=== PATIENT | female | born 1975 | race Caucasian/White ===

== ENCOUNTER → 2021-04-16 | Outpatient (CLI) | payer OTHER, SELFPAY ==
[2021-04-16 15:09] LABS: Erythrocyte Sedimentation Rate 29 mm/hr (0-30)
[2021-04-16 15:11] LABS: Absolute Lymphocyte Count 2.61 X10^3/uL (0.83-4.51); Absolute Neutrophil Count 3.6 X10^3/uL (2.0-7.7); Basophil# 0.04 X10^3/uL; Basophil% 0.6 % (0-1); Eosinophil# 0.17 X10^3/uL; Eosinophils% 2.5 % (0-5); Hematocrit 37.8 % (37-47); Hemoglobin 11.5 g/dL (12.0-15.0); Lymphocyte # 2.61 X10^3/ul (0.83-4.51); Mean Corp Hgb Conc 30.4 g/dL (32-36); Mean Corpuscular Hgb 24.6 pg (27.0-32.0); Mean Corpuscular Volume 80.8 fL (81-99); Mean Platelet Vol. 10.8 fl (6.2-12.0); Monocyte# 0.43 X10^3/uL; Monocyte% 6.3 % (0-10); NRBC Flagged by Analyzer 0 % (0-5); Neutrophil % 52.5 % (47-70); Platelet Count 438 K/mm3 (150-450); RBC Distribution Width CV 14.6 % (11.6-14.6); RBC Distribution Width SD 42.9 fl (35.1-43.9); Red Blood Count 4.68 M/mm3 (4.2-5.4); White Blood Count 6.9 K/mm3 (4.4-11.0)
[2021-04-16 15:24] LABS: Rubella IgG Reactive (Nonreactive); Vitamin D,25 Hydroxy 52.7 ng/mL
[2021-04-16 15:28] LABS: ALB/GLOB Ratio 0.8 RATIO (0.9-2.4); AST(SGOT) 22 U/L (15-37); Alanine Aminotransfer ALT/SGPT 27 U/L (13-56); Albumin, Serum 3.3 g/dL (3.2-5.0); Alkaline Phosphatase 99 U/L (45-117); Anion Gap 7 (5-15); BUN 8 mg/dL (7-18); BUN/Creat Ratio 13.2 RATIO (10-20); Calcium,Total 8.7 mg/dL (8.5-10.1); Chloride 106 mmol/L (98-107); Cholesterol 205 mg/dL (200); Creatinine, Serum 0.61 mg/dL (0.55-1.02); EST Glomerular Filtration Rate 112 mL/min (>60); Est Glom Filt Rate - Afr Amer 136 mL/min (>60); Globulin 4.1 g/dL (2.2-4.2); Glucose 91 mg/dL (74-106); High Density Lipoprotein 38 mg/dL; Iron 31 ug/dL (50-170); Iron Binding Capacity,Total 475 ug/dL (250-450); Potassium 3.8 mmol/L (3.5-5.1); Protein, Total 7.4 g/dL (6.4-8.2); Sodium Level 139 mmol/L (136-145); Thyroid Stim Hormone (TSH) 1.43 uIU/mL (0.358-3.74); Triglycerides 89 mg/dL; Very Low Density Lipoprotein 18 mg/dL (5-40)
[2021-04-16 15:29] LABS: PERCENT IRON SATURATION 6.5 % (15.0-55.0); Rheumatoid Factor < 10.0 IU/mL (<15)
[2021-04-18 13:45] LABS: ANTINUCLEAR ANTIBODIES DIRECT Negative (Negative)
[2021-04-18 16:21] LABS: Mumps Antibody,IgG 40.8 AU/mL (Immune >10.9); Rubeola IgG Ab 47.4 AU/mL (Immune >16.4)
== END | disposition short-term general hospital (02) ==
LOC: BIMLAB 11:57
PROVIDERS: PCP Internal Medicine; Referring Provider Internal Medicine; Visit Provider Internal Medicine
DX: Z02.1 Encounter for pre-employment examination (principal); M25.50 Pain in unspecified joint; F32.A Depression, unspecified; E78.1 Pure hyperglyceridemia; E61.1 Iron deficiency
CPT/HCPCS: 36415; 80053; 80061; 82306; 83540; 83550; 84443; 85025; 85652; 86038; 86225; 86235; 86431; 86735; 86762; 86765

== ENCOUNTER 2021-09-13 07:30 | Outpatient (RCR) | payer OTHER, SELFPAY ==
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
--- NOTE | 2021-07-11 10:01 | HP.PTREVAL_ITS ---
Dr. Dhara Johns MD, It has been my pleasure to treat YADIRA QUEZADA over the last 9 visits for Neck and Back Pain. Please see the progress note below for an update on the physical therapy plan of care! Subjective: She feels that the water therapy is great- she feels that she is getting better. She is also thinking that maybe a membership would be helpful. She feels that she is standing better and her posture is better. Worst: 7/10 Objective/Function: Posture: FH, RS- can correct with verbal cues but does not maintain. Gait: no deviation noted- good arm swing and trunk rotation- fair posture. SLS: 15 sec then LOB. ROM: WFL in all planes of the cervical, lumbar, UE and LE but reports pain in the rotation left and sb left. Strength: Cervical: 4+/5 isometrics, Scap: fair, Shoulder: 4+/5 throughout, Elbow: 5/5, Wrist: 5/5, Firewall Engineer: equal, Core: fair minus, Hip: 4+/5 throughout, Knee: 5/5, Ankle: 5/5. Palpation: tender along cervical paraspinals, upper trap, medial border of the scapula, bicipital groove and deltoid. Lumbar paraspinals into the gluts and along the ITband to the knee. Sensation: WNL. Flex: HS: moderate, Gastroc: moderate Plan Plan: 07/11/21: Continue with POC. * f/u with supervising PT next appt. Would recommend continued AT at this time, d/t progress made, however, room for greater improvement. Has been given I pool page & hours for this facility as she is interested in becoming a member. Still very limited by pain and therefore body weight. *f/u with new HEP tasks. *Add balance, step ups and downs next. Aquatic PT- focus on posture- scapular s/s and core s/s Balance/Gait/Functional tests - Balance/Special Test Scores Quick DASH Score: 40.0000 Goals Goal 1:: Patient will be I with HEP and progression Goal Time Frame: 4-6 Weeks Goal Progress: Progressing Goal 2:: Patient will maintain proper posture t/o tx session to demo increased core s/s Goal Time Frame: 4-6 Weeks Goal Progress: Progressing Goal 3:: Patient will report no more than 2/10 pain for 1 week Goal Time Frame: 4-6 Weeks Goal Progress: Progressing Goal 4:: Patient will report 75% better subjectively. Goal Time Frame: 4-6 Weeks Goal Progress: Progressing Anticipated Interventions Patient/Client Instruction: Educate patient on: Benefits of Fitness Program Therapeutic Exercise to Include: Strength training, Endurance training, Balance training, Coordination, Agility training, Body mechanics, Postural training, Fl exibilty training, Gait and locomotor training, Neuromotor development, In an aquatic setting, Dynamic Lumbar Stabilization, Scapular Strength/Stabilization For the Purpose of:: To improve muscle performance and motor function Please do not hesitate to contact me at [phone] by phone or if you have questions or concerns regarding this new plan of care! Sincerely, CATALINA ChungT
--- NOTE | 2021-09-13 07:44 | HP.PTDCSUM ---
It has been my pleasure to treat YADIRA QUEZADA referred by Dr. Dhara Johns MD, with the diagnosis of Neck and Back Pain for a total of 14 visit(s). Discharge Date: Please see the following information for a summary of their discharge status. Subjective: Patient reports that she is doing really well. She is ready to be I with home exercise program. She is more like a 2-3/10. She is never really painfree but she does have days where its better. She did have a tour of the facility- and she is planning in joining. She has had a lot of sickness and things in her family. RLE Pain Intensity (Out of 10): 0 LLE Pain Intensity (Out of 10): 0 Lumbar Spine Pain Intensity (Out of 10): 2 Cerv. Spine Pain Intensity (Out of 10): 2 RUE Pain Intensity (Out of 10): 2 LUE Pain Intensity (Out of 10): 2 RAMON Pain Intensity (Out of 10): 2 % Improvement: 98 Objective/Function: Posture: fair throughout. Gait: no deviation noted- good arm swing and trunk rotation- fair posture. SLS: 30 no LOB. ROM: WFL in all planes of the cervical, lumbar, UE and LE without pain. Strength: Cervical: 4+/5 isometrics, Scap: fair, Shoulder: 5/5 throughout, Elbow: 5/5, Wrist: 5/5, Clerical Office Worker: equal, Core: fair, Hip: 5/5 throughout, Knee: 5/5, Ankle: 5/5. Sensation: WNL. Flex: HS: moderate, Gastroc: moderate Goal 1:: Patient will be I with HEP and progression Goal Progress: Goal Met Goal 2:: Patient will maintain proper posture t/o tx session to demo increased core s/s Goal Progress: Goal Met Goal 3:: Patient will report no more than 2/10 pain for 1 week Goal Progress: Goal Met Goal 4:: Patient will report 75% better subjectively. Goal Progress: Goal Met Plan: 09/13/21: Discharge to I home exercise program. *Add rest of balance tasks next. *Progressing to I pool program with [employer] membership. Has been given I pool page & hours for this facility as she is interested in becoming a member. Aquatic PT- focus on posture- scapular s/s and core s/s If there are questions or concerns regarding this patient's physical therapy, please feel free to call me at [phone]. Thank you for the referral of this patient. Sincerely, Jennifer Joe, DPT Balance/Gait/Functional tests - Balance/Special Test Scores Lower Extremity Functional Score: 71 Quick DASH Score: 40.0000
== END 2021-09-13 19:00 | disposition home or self-care (01) ==
LOC: PT 07:30
PROVIDERS: PCP Internal Medicine; Referring Provider Internal Medicine; Visit Provider Internal Medicine
DX: M25.511 Pain in right shoulder (principal); M25.512 Pain in left shoulder; M25.50 Pain in unspecified joint; M54.2 Cervicalgia; M54.30 Sciatica, unspecified side; W00.9XXA Unspecified fall due to ice and snow, initial encounter
CPT/HCPCS: 97113; 97162; 97164

== ENCOUNTER → 2021-10-25 | Outpatient (CLI) | payer OTHER, SELFPAY | END | disposition home or self-care (01) | LOC: LABSPEC 15:42 | PROVIDERS: PCP Internal Medicine; Referring Provider Physician Assistant; Visit Provider Physician Assistant | DX: R05.9 Cough, unspecified (principal); Z20.822 Contact with and (suspected) exposure to COVID-19 | CPT/HCPCS: 87635; U0003; U0005 ==

== ENCOUNTER → 2022-05-21 | Outpatient (CLI) | payer OTHER, SELFPAY ==
[2022-05-21 12:31] LABS: Absolute Lymphocyte Count 2.94 X10^3/uL (0.83-4.51); Absolute Neutrophil Count 2.7 X10^3/uL (2.0-7.7); Basophil# 0.06 X10^3/uL; Basophil% 0.9 % (0-1); Eosinophil# 0.12 X10^3/uL; Eosinophils% 1.9 % (0-5); Hematocrit 35.5 % (37-47); Hemoglobin 9.6 g/dL (12.0-15.0); Lymphocyte # 2.94 X10^3/ul (0.83-4.51); Lymphocyte % 46.3 % (19-41); Mean Corpuscular Volume 77.5 fL (81-99); Mean Platelet Vol. 10.6 fl (6.2-12.0); Monocyte# 0.55 X10^3/uL; Monocyte% 8.7 % (0-10); NRBC Flagged by Analyzer 0.3 % (0-5); Neutrophil # 2.67 X10^3/uL (2.7-7.7); Platelet Count 570 K/mm3 (150-450); RBC Distribution Width CV 19.1 % (11.6-14.6); Red Blood Count 4.58 M/mm3 (4.2-5.4); White Blood Count 6.4 K/mm3 (4.4-11.0)
[2022-05-21 13:21] LABS: ALB/GLOB Ratio 0.9 RATIO (0.9-2.4); AST(SGOT) 18 U/L (15-37); Alanine Aminotransfer ALT/SGPT 23 U/L (13-56); Albumin, Serum 3.4 g/dL (3.2-5.0); Alkaline Phosphatase 93 U/L (45-117); Anion Gap 7 (5-15); BUN 8 mg/dL (7-18); Calcium,Total 8.7 mg/dL (8.5-10.1); Chloride 111 mmol/L (98-107); Cholesterol 195 mg/dL (200); Creatinine, Serum 0.66 mg/dL (0.55-1.02); EST Glomerular Filtration Rate 100 mL/min (>60); Est Glom Filt Rate - Afr Amer 121 mL/min (>60); Free T3 2.3 pg/mL (2.18-3.98); Globulin 3.8 g/dL (2.2-4.2); Glucose 107 mg/dL (74-106); High Density Lipoprotein 41 mg/dL; Iron 16 ug/dL (50-170); Iron Binding Capacity,Total 500 ug/dL (250-450); PERCENT IRON SATURATION 3.2 % (15.0-55.0); Potassium 4.1 mmol/L (3.5-5.1); Protein, Total 7.2 g/dL (6.4-8.2); Sodium Level 142 mmol/L (136-145); Thyroid Stim Hormone (TSH) 1.62 uIU/mL (0.358-3.74); Triglycerides 107 mg/dL; Very Low Density Lipoprotein 21 mg/dL (5-40)
== END | disposition home or self-care (01) ==
PROVIDERS: PCP Internal Medicine; Referring Provider Internal Medicine; Visit Provider Internal Medicine
DX: D50.9 Iron deficiency anemia, unspecified (principal); N92.0 Excessive and frequent menstruation with regular cycle; F32.A Depression, unspecified; Z87.42 Personal history of other diseases of the female genital tract; E55.9 Vitamin D deficiency, unspecified; Z13.220 Encounter for screening for lipoid disorders
CPT/HCPCS: 36415; 80053; 80061; 82306; 83540; 83550; 84439; 84443; 84481; 85025

== ENCOUNTER → 2022-11-05 | Outpatient (CLI) | payer OTHER, SELFPAY ==
[2022-11-11 15:07] LABS: HPV APTIMA, High Risk Negative (Negative)
== END | disposition home or self-care (01) ==
PROVIDERS: PCP Internal Medicine; Referring Provider Nurse Practitioner Women's Health; Visit Provider Nurse Practitioner Women's Health
DX: Z12.4 Encounter for screening for malignant neoplasm of cervix (principal)
CPT/HCPCS: 87624; 88175; G0145

== ENCOUNTER → 2022-11-11 | Outpatient (CLI) | payer OTHER, SELFPAY ==
--- NOTE | 2022-11-11 14:43 | US_ITS ---
STUDY: ULTRASOUND OF THE FEMALE PELVIS - COMPLETE REASON FOR EXAM: Female, 47 years old. Menorrhagia LMP: October 27, 2022. TECHNIQUE: Transabdominal and Transvaginal TECHNICAL QUALITY: Adequate. COMPARISON: None. FINDINGS: The uterus is retroverted and is in a midline position. The uterus measures 9.6 cm x 6.5 cm x 5.4 cm. Normal uterine cervix. The endometrium measures 4 mm in thickness, and is hyperechoic. There is no demonstrated endometrial mass. There is no demonstrated myometrial mass. I.U.D. - The patient does not have an I.U.D. The right ovary is visualized. The right ovary measures 3 cm x 1.7 cm x 1.5 cm. There is no right ovarian cyst or ovarian mass. There is no visualized right adnexal mass or complex lesion. There is normal arterial and normal venous vascularity. The left ovary is visualized. The left ovary measures 5.4 cm x 4.9 cm x 4.9 cm. There is a 5.9 cm x 4.1 cm x 4.8 cm left ovarian cyst. There is no visualized left adnexal mass or complex lesion. There is normal arterial and normal venous vascularity. There is no fluid in the cul-de-sac. The pre void volume of the bladder was 217 ml. The distal tip of an ureteral stent is visualized. US/Pelvic (Non ) IMPRESSION: 5.9 cm x 4.1 cm x 4.8 cm cyst in the left ovary. Electronically Signed: Jamal Frederick MD at 13:09 EDT ,
[2022-11-11 14:48] LABS: Absolute Lymphocyte Count 2.58 X10^3/uL (0.83-4.51); Absolute Neutrophil Count 3.6 X10^3/uL (2.0-7.7); Basophil# 0.05 X10^3/uL; Basophil% 0.7 % (0-1); Eosinophil# 0.21 X10^3/uL; Hematocrit 39.2 % (37-47); Hemoglobin 11.7 g/dL (12.0-15.0); Lymphocyte # 2.58 X10^3/ul (0.83-4.51); Lymphocyte % 36.5 % (19-41); Mean Corp Hgb Conc 29.8 g/dL (32-36); Mean Corpuscular Hgb 25.3 pg (27.0-32.0); Mean Corpuscular Volume 84.8 fL (81-99); Mean Platelet Vol. 10.5 fl (6.2-12.0); Monocyte# 0.61 X10^3/uL; Monocyte% 8.6 % (0-10); NRBC Flagged by Analyzer 0.6 % (0-5); Neutrophil # 3.59 X10^3/uL (2.7-7.7); Neutrophil % 50.9 % (47-70); Platelet Count 626 K/mm3 (150-450); RBC Distribution Width CV 14.6 % (11.6-14.6); Red Blood Count 4.62 M/mm3 (4.2-5.4); White Blood Count 7.1 K/mm3 (4.4-11.0)
[2022-11-11 15:15] LABS: ALB/GLOB Ratio 0.7 RATIO (0.9-2.4); AST(SGOT) 31 U/L (15-37); Alanine Aminotransfer ALT/SGPT 22 U/L (13-56); Albumin, Serum 3.2 g/dL (3.2-5.0); Alkaline Phosphatase 100 U/L (45-117); Anion Gap 5 (5-15); BUN 8 mg/dL (7-18); BUN/Creat Ratio 12.1 RATIO (10-20); Calcium,Total 9.3 mg/dL (8.5-10.1); Chloride 104 mmol/L (98-107); Creatinine, Serum 0.66 mg/dL (0.55-1.02); EST Glomerular Filtration Rate 101 mL/min (>60); Est Glom Filt Rate - Afr Amer 122 mL/min (>60); Globulin 4.4 g/dL (2.2-4.2); Glucose 105 mg/dL (74-106); Iron 32 ug/dL (50-170); Iron Binding Capacity,Total 545 ug/dL (250-450); PERCENT IRON SATURATION 5.9 % (15.0-55.0); Potassium 4.2 mmol/L (3.5-5.1); Protein, Total 7.6 g/dL (6.4-8.2); Sodium Level 137 mmol/L (136-145)
== END | disposition home or self-care (01) ==
LOC: US 14:37
PROVIDERS: PCP Internal Medicine; Referring Provider Nurse Practitioner Women's Health; Visit Provider Nurse Practitioner Women's Health
DX: N92.1 Excessive and frequent menstruation with irregular cycle (principal); D50.9 Iron deficiency anemia, unspecified; Z87.42 Personal history of other diseases of the female genital tract; F32.A Depression, unspecified
CPT/HCPCS: 36415; 76830; 76856; 80053; 83540; 83550; 85025

== ENCOUNTER → 2022-11-13 | Outpatient (CLI) | payer OTHER, SELFPAY ==
--- NOTE | 2022-11-13 08:41 | BI_ITS ---
MAMMOGRAPHY - BILATERAL SCREENING REASON FOR EXAM: Female, 47 years old. Routine annual screening examination. PERTINENT HISTORY: Non-contributory. TECHNIQUE: Digital bilateral breast victoria (3D mammographic acquisition) in the CC and MLO projections. 2-D mediolateral oblique (MLO) and craniocaudad (CC) views of both breasts were obtained. CAD: Full Field Digital Mammography with Computer Added Detection was performed. COMPARISON: No comparison mammograms available at this time. If any prior films become available, an addendum to this report can be generated. FINDINGS: Breast Composition: The breasts are heterogeneously dense, which may obscure small masses. There are no dominant masses or suspicious calcifications. Small benign-appearing bilateral axillary lymph nodes. No other significant abnormalities are identified. BI/SCRN MAMM (CAD)W/VICTORIA BILAT IMPRESSION: Negative screening mammogram. Yearly followup mammogram recommended. (A) ASSESSMENT CATEGORY: BIR ADS Category 2: Benign. A letter regarding these results will be sent to the patient by the facility within 30 days. Approximately 10% of breast cancers are not detected by mammography. A normal mammogram should not delay biopsy of a clinically suspicious abnormality. [id number] Electronically Signed: Jamal Frederick MD at 14:25 EDT ,
== END | disposition home or self-care (01) ==
PROVIDERS: PCP Internal Medicine; Referring Provider Nurse Practitioner Women's Health; Visit Provider Nurse Practitioner Women's Health
DX: Z12.31 Encounter for screening mammogram for malignant neoplasm of breast (principal)
CPT/HCPCS: 77063; 77067

== ENCOUNTER → 2022-11-28 | Outpatient (CLI) | payer OTHER, SELFPAY ==
--- NOTE | 2022-11-28 11:06 | CT_ITS ---
CT/Extremity Lower without Contra IMPRESSION: Medial and posterior malleolar fractures as described. Soft tissue swelling. Electronically Signed: Sam Deutsch MD at 11:39 EDT ,
== END | disposition home or self-care (01) ==
LOC: CT 11:05
PROVIDERS: PCP Internal Medicine; Referring Provider Orthopaedic Surgery Sports Medicine; Visit Provider Orthopaedic Surgery Sports Medicine
DX: S82.51XA Displaced fracture of medial malleolus of right tibia, initial encounter for closed fracture (principal); M25.571 Pain in right ankle and joints of right foot; X58.XXXA Exposure to other specified factors, initial encounter
CPT/HCPCS: 73700

== ENCOUNTER 2022-12-04 11:38 | Outpatient (CLI) | payer OTHER, SELFPAY ==
--- NOTE | 2022-12-04 10:45 | EMB_PTH ---
PATIENT: YADIRA QUEZADA LOC: [facility] U#:[id number] AGE/SX: 47/F ROOM: RE12/04/[address]: Dr. Brianda Varma DO : 1975 BED: DIS: 12/04/2022 SPEC #: [id number] RECD: 12/04/22 11:36 STATUS: ALAN NICANOR #: [id number] HARDEEP: 12/04/22 10:[address]: Brianda Varma DEPT: SURGICAL PATHOLOGY RECD BY: Maegan Bonds ENTERED: 12/05/22 10:27 SP TYPE: ENDOM BX/C EDHR DR: Dr. Dhara Johns MD Tissues: Endometrium, NOS Procedures: Surgery Specimen Level IV HEADER OPERATION: Endometrial biopsy PRE-OP DIAGNOSIS: Abnormal uterine bleeding TISSUE SUBMITTED: Endometrial lining MICROSCOPIC DIAGNOSIS Endometrial biopsy: Proliferative endometrium. SJ:weston 12/09/2022 MICROSCOPIC DESCRIPTION Slides are reviewed. GROSS DESCRIPTION Received in fixative is one container labeled with the patient's name and designated endometrial biopsy. The specimen consists of multiple irregular fragments of west-pink soft tissue that in aggregate measure 1.0 x 1.0 x 0.1 cm. The entire specimen is submitted in one cassette. / SJ:rg 12/05/2022 TC:4 CPT: 00137
== END 2022-12-04 23:59 | disposition home or self-care (01) ==
PROVIDERS: PCP Internal Medicine; Referring Provider Obstetrics & Gynecology; Visit Provider Obstetrics & Gynecology
DX: N93.9 Abnormal uterine and vaginal bleeding, unspecified (principal)
CPT/HCPCS: 88305

== ENCOUNTER → 2022-12-25 | Outpatient (CLI) | payer OTHER, SELFPAY ==
--- NOTE | 2022-12-25 12:59 | US_ITS ---
EXAM: US PELVIS TRANSABDOMINAL AND TRANSVAGINAL, COMPLETE CLINICAL INDICATION: ovarian cyst- AUB TECHNIQUE: Transabdominal and transvaginal pelvic ultrasound was performed with grayscale and color Doppler imaging. Transvaginal imaging was used for better evaluation of the endometrium and adnexa. COMPARISON: No relevant prior studies available. FINDINGS: UTERUS/CERVIX: Uterus measures 9.2 x 5.7 x 6.2 cm. The endometrium measures 1 cm. There is a 1.0 x 0.4 x 0.8 cm echogenic focus within the endometrium. Anteverted. There is no uterine mass. RIGHT OVARY: The right ovary measures 2.2 x 3.2 x 2.2 cm. Blood flow is present in the right ovary. LEFT OVARY: The left ovary measures 3.8 x 2.1 x 2.6 cm. There is a 1.6 x 1.4 x 1.3 cm hypoechoic area in the left ovary compatible with a cyst or dominant follicle. Blood flow is present in the left ovary. FREE FLUID: None. BLADDER: Unremarkable as visualized. Wall is normal thickness for degree of distention. US/Pelvic (Non ) IMPRESSION: Echogenic focus within the endometrium possibly representing a polyp. No other abnormalities are identified. Electronically Signed: Anthony Cruz MD at 20:08 EDT ,
== END | disposition home or self-care (01) ==
LOC: OPUS 12:54
PROVIDERS: PCP Internal Medicine; Referring Provider Nurse Practitioner Women's Health; Visit Provider Nurse Practitioner Women's Health
DX: N92.1 Excessive and frequent menstruation with irregular cycle (principal); N83.202 Unspecified ovarian cyst, left side
CPT/HCPCS: 76830; 76856

== ENCOUNTER 2023-01-21 10:40 | Day surgery (SDC) | payer OTHER, SELFPAY ==
[2023-01-21] VITALS (8 sets, daily range): BP systolic 120–152; BP diastolic 78–105; PULSE 62–88; RESP 16–18; TEMP 35.9–36.5; O2SAT 96–100; BMI 31.4
--- NOTE | 2023-01-21 | EMB_PTH ---
PATIENT: YADIRA QUEZADA [place] [facility] [id number] AGE/SX: 47/F ROOM: RE01/21/[address]: Dr. Brianda Varma DO : 1975 BED: DIS: 01/21/2023 SPEC #: [id number] RECD: 01/21/23 15:14 STATUS: ALAN ODELLAlessandra #: [id number] HARDEEP: 01/21/23 00:[address]: Brianda Varma DEPT: SURGICAL PATHOLOGY RECD BY: Valentin Gallo ENTERED: 01/22/23 09:51 SP TYPE: ENDOM BX/C HUONG DR: Dr. Dhara Johns MD Tissues: Endometrium, NOS Procedures: Surgery Specimen Level IV HEADER OPERATION: Hysteroscopy, dilation and curettage PRE-OP DIAGNOSIS: Endometrial polyp, anemia, menorrhagia TISSUE SUBMITTED: Endometrial curettings MICROSCOPIC DIAGNOSIS Endometrium, curettings: Proliferative endometrium with minimal disorder and focal glandular and stromal breakdown. Chronic endometritis. AM:weston 01/23/2023 MICROSCOPIC DESCRIPTION Slides are reviewed. GROSS DESCRIPTION Received in fixative is one container labeled with the patient's name and designated endometrial curettings. The specimen consists of multiple irregular fragments of light to dark west soft tissue that in aggregate measure 5.0 x 3.0 x 0.2 cm. The specimen is totally submitted in two cassettes. / AM:weston 01/22/2023 TC:3 CPT: 19721
[2023-01-21 11:08] LABS: Internal QC Validated? YES +Cl - CLEAR BKGD; Pregnancy, Urine Negative Negative
[2023-01-21 11:17] LABS: Hematocrit 35.1 % (37-47); Mean Corp Hgb Conc 28.5 g/dL (32-36); Mean Corpuscular Hgb 21.6 pg (27.0-32.0); Mean Corpuscular Volume 75.6 fL (81-99); Platelet Count 633 K/mm3 (150-450); RBC Distribution Width CV 15.9 % (11.6-14.6); RBC Distribution Width SD 43.6 fl (35.1-43.9); Red Blood Count 4.64 M/mm3 (4.2-5.4); White Blood Count 8.9 K/mm3 (4.4-11.0)
[2023-01-21] MEDS: Lactated Ringers 1,000 ML 15 ML IV (11:23)
--- NOTE | 2023-01-21 11:28 | PCM.HP.BLA ---
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 Required: No Is patient in pain?: No Allergies bee venom protein (honey bee) Allergy (Severe, Verified 01/06/23 15:22) Anaphylaxismeloxicam [From Mobic] Allergy (Mild, Verified 01/06/23 15:22) unknown Medications [id number] 75 mg tablet (Immune Support Complex) tab PO 03/21/21 [History Confirmed 01/06/23] cholecalciferol (vitamin D3) 125 mcg (5,000 unit) capsule 125 mcg PO DAILY 03/21/21 [History Confirmed 01/06/23] cranberry extract 250 mg capsule 250 mg PO DAILY 03/21/21 [History Confirmed 01/06/23] fluticasone propionate 50 mcg/actuation nasal spray,suspension 1 spray intranasal DAILY 03/21/21 [History Confirmed 01/06/23] vitamin B complex (B Complex-Vitamin B12 tablet) 1 tab PO DAILY 03/21/21 [History Confirmed 01/06/23] docusate sodium 100 mg capsule (Colace) 100 mg PO BID #180 caps 03/28/21 [Rx Confirmed 01/06/23] duloxetine 30 mg capsule,delayed release (Cymbalta) 30 mg PO BID #180 caps 05/09/22 [Rx Confirmed 01/06/23] ferrous sulfate 325 mg (65 mg iron) tablet (Feosol) 325 mg PO DAILY 05/22/22 [History Confirmed 01/06/23] phenazopyridine 200 mg tablet 200 mg PO TID PRN pain #30 tabs 11/06/22 [Rx Confirmed 01/06/23] acetaminophen 325 mg capsule (Tylenol) 325 mg PO ONCE PRN 11/28/22 [History Confirmed 01/06/23] ibuprofen 200 mg capsule 200 mg PO Q6H PRN 11/28/22 [History Confirmed 01/06/23] Post menopausal: No Patient : No : No PFSH Medical History Bilateral bunions Fracture of medial malleolus, right, closed History of PCOS Kidney stone Right ankle pain Surgical History History of renal stent S/P appendectomy Family History Other CVA (cerebral vascular accident) Cancer Diabetes Heart disease Myocardial infarction Social History household members: spouse and children number of children: 4 current occupational status: employed 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 A new ultrasound was performed showing a new polyp structure in the endometrium. She wants to ultrimately proceed with a uterine ablation. History Past Pregnancies Del. Date Name GA/Weeks Outcome Route Bth Weight Gen Labor Lgth Anesthesia Del Locatn Provider FOB Unknown Piper 1991 Unknown Julio 1994 Unknown Omid 1998 Unknown Jospeh 2001 ROS Const ROS Unobtainable: All systems reviewed & are unremarkable except as noted in H Resp Resp: Reports system reviewed and no additional complaints, except as documented; Denies cough GI GI: Reports as per HPI Psych Psych: Reports system reviewed and no additional complaints, except as documented Exam Const General: cooperative, healthy appearing, comfortable and no acute distress Resp Effort & Inspection: normal respiratory effort Skin General: no rashes or lesions noted Psych Appearance: grossly normal Speech and Movement: speech and movement normal Coding Level of Care Code Off vis,est,level 4 Diagnoses Endometrial polyp N84.0 Menorrhagia with irregular cycle N92.1 Iron deficiency anemia D50.9 Assessment and Plan Assessment and Plan (1) Endometrial polyp: Status: Acute Plan: After discussing the patient's diagnosis and treatment plan options, patient wishes to proceed with surgical management. I have discussed with the patient the risks, benefits, and alternatives of the procedure which include but are not limited to risks of anesthesia, bleeding, infection, possible damage to bowel, bladder, or surrounding vasculature which could lead to additional surgery to evaluate any complications. Patient agrees to procedure and wishes to proceed. ACOG/uptodate references given for additional information regarding procedure. polyp measures approimately 1 cm in the mid portion of the uterus. plan to proceed with hysteroscopy D&C and if pathology is benign will re-scheduled for an ablation procedure. (2) Menorrhagia with irregular cycle: Status: Acute (3) Iron deficiency anemia:
--- NOTE | 2023-01-21 13:11 | DCINST_ITS ---
Discharge Instructions Diet Discharge Diet: No restrictions Activity Discharge Activity: Return to Normal Activity, May Shower and May Take a Tub Bath (after 1 week) May resume sexual activity in: 1-2 weeks Weight Bearing Status: Weight bearing as tolerated Lifting Restrictions: none Dressing / Incision Call your doctor if you observe: Fever of 101 or Higher, Using more than 1 pad per hour, Shortness of breath and Uncontrolled pain Follow Up Care Please Follow Up With: Brianda Varma DO When: Call [phone] to schedule appointment. Test Results: Test results from this visit will be discussed in further detail at your follow- up appointment, if applicable. Discharge Plan Admission Primary Reason for Your Visit: dilation and curettage Attending Provider: Brianda Varma Primary Care Provider: Dhara Johns Discharge Orders/Prescriptions Prescriptions: New ibuprofen 800 mg tablet 800 mg PO Q8H PRN (Reason: pain) Qty: 20 0RF Continued docusate sodium [Colace] 100 mg capsule 100 mg PO BID Qty: 180 3RF vitamin B complex [B Complex-Vitamin B12] Tablet 1 tab PO DAILY cholecalciferol (vitamin D3) 125 mcg (5,000 unit) capsule 125 mcg PO DAILY cranberry extract 250 mg capsule 250 mg PO DAILY Rx Instructions: administer with a meal Immune Support Complex 75 mg tablet 2 tab PO DAILY fluticasone propionate 50 mcg/actuation spray,suspension 1 spray intranasal DAILY Rx Instructions: administer into each nostril acetaminophen [Tylenol] 325 mg capsule 325 mg PO ONCE PRN (Reason: pain) duloxetine [Cymbalta] 30 mg capsule,delayed release(DR/EC) 30 mg PO BID Qty: 180 3RF ferrous sulfate [Feosol] 325 mg (65 mg iron) tablet 325 mg PO DAILY Rx Instructions: may take up to 2 daily as tolerated Referrals / Follow Up: Dhara Johns MD [Primary Care Provider] - Disposition Disposition (needs filled in before D/C Order can be placed): Home, Self Care
[2023-01-21] MEDS: Lidocaine 1% (20 ml mdv) 20 ML Vial (13:40)
--- NOTE | 2023-01-21 14:11 | PCM.OPRPT ---
Problems Associated Problem List Diagnoses (1) Endometrial polyp: (2) Menorrhagia with irregular cycle: Report of Operation Date of Procedure: 01/21/23 Pre-Operative Diagnosis: menorrhagia, endometrial polyp on ultrasound Post-Operative Diagnosis: menorrhagia, endometrial polyp on ultrasound Surgery/Procedure Performed:: hysteroscopy dilation and curettage Description of Surgical Findings:: endometrial polyps present Surgeon: Brianda Varma predatory animal hunter: None Type of Anesthesia: MAC/Supplemental/Local Anesthesiologist: Omid Arenas Specimen's removed: endometrial curetting Estimated Blood Loss (mL): 10cc Description of Procedure: Patient was prepped and draped in a normal sterile fashion under MAC anesthesia. A weighted speculum was placed in the vagina and the anterior lip of the cervix was grasped with a single-tooth tenaculum. A paracervical block was placed with 1% lidocaine. Cervix was progressively dilated to allow passage of a 5 mm hysteroscope. The lining was fully visualized and noted to have a few endometrial polyp looking structures arranged at the fundus and left uterine body . Uterine sounded to 9 cm. Curettage was performed and polyp like structures and tissue was sent to pathology. All instruments were removed from the vagina and excellent hemostasis was noted. Patient was awoken and taken to recovery in stable condition. Complications none Admit VTE Documentation VTE Present on Admission: No VTE Mechan Device Prophylaxis: SCD's VTE Pharm Prophylaxis ordered?: No Multi Select Codes Urinary/Genital Urinary/Genital CPT Codes: 43503 Hysteroscopy,EMC, Polypectomy
== END 2023-01-21 14:58 | disposition home or self-care (01) ==
LOC: SDC 10:41 → AC 10:42
PROVIDERS: Anesthesiology; PCP Internal Medicine; Referring Provider Obstetrics & Gynecology; Visit Provider Obstetrics & Gynecology
PROC: 0UDB8ZZ Extraction of Endometrium, Via Natural or Artificial Opening Endoscopic (ICD-10-PCS; CPT 58558; principal; 2023-01-21 12:20)
DX: N84.0 Polyp of corpus uteri (principal); N92.1 Excessive and frequent menstruation with irregular cycle; D50.9 Iron deficiency anemia, unspecified; N71.1 Chronic inflammatory disease of uterus; I10 Essential (primary) hypertension
CPT/HCPCS: 58558; 00952; 81025; 85027; 86850; 86900; 86901; 88305; J7120; J2405

== ENCOUNTER → 2023-04-22 | Outpatient (CLI) | payer OTHER, SELFPAY ==
[2023-04-22 11:48] LABS: Ferritin 5 ng/mL (8-252); Iron Binding Capacity,Total 566 ug/dL (250-450)
--- OUTSIDE RECORDS SUMMARY | 2023-04-22 12:02 | XMS RPT_ITS | CCD ---
Author Name Unknown Address [address] [place] [address] Organization [facility] Care Team Providers Care Heating Repair Technician Name Role Phone Free, Text Entry Unavailable Unavailable Loc Luther Unavailable Venkata Joshi Unavailable Unavailable Neeru Valentino MD Primary Care Provider NEERU VALENTINO Primary Care Unavailable DEBORAH PAVON II Attending UnavailKeyshawn Garcia Unavailable Hi Rossi Unavailable Unavailable Rubens Gavin Unavailable Maycol Simpson Unavailable Unavailab Keyshawn Pizarro Unavailable Nnamdi Blair Unavailable Unavailabl e Roger Bustillo, Dr. Richter Admitting Unavailabl e Roger Bustillo, Dr. Richter Referring Unavailabl e Roger Bustillo, Dr. Richter Attending Unavailabl e Dr. Diomedes Mcconnell Admitting Unavailabl e Luzma, Dr. Severino Attending Medinava ilyen Pending, Provider Primary Care Unavailable Self, Referral Referring Unavailable Dr. Nnamdi Blair Attending Unav ailable Unavailable Unavailable MD HI ROSSI Referring Unavailable MD HI ROSSI Attending Unavailable MD HI ROSSI Referring Unavailable MD HI ROSSI Attending Unavailable Keyshawn Sanchez MD Primary Care Provide r HI ROSSI Referring Unavailable KEYSHAWN SANCHEZ Primary Care Unavail able HI ROSSI Attending Unavailable KEYSHAWN SANCHEZ Primary Care Unavail able Allergies Allergy Classification Reported Allergen(s) Allergy Type Date of Onset Reaction(s) Facility (4 sources) meloxicam Drug Allergy Seizure, Seizures [facility] (5 sources) meloxicam; Translations: [MELOXICAM] Drug Allergy 1 Other: See Comments, Unknown [facility] (2 sources) Bee Venom Protein (Honey Bee); Translations: [BEE VENOM PROTEIN (HONEY BEE)] Drug Allergy 2 Anaphylaxis [facility] (1 source) Bee/Wasp/Ant venom Anaphylaxis [facility] (2 sources) ALLERGIES NOT ON FILE; Translations: [ALLERGIES NOT ON FILE] Propensity to adverse reactions (disorder) [facility] 2 Repository Medications Current Medications Medication Drug Class(es) Dates Sig (Normalized) Sig (Original) Ascorbic Acid (2 sources) Vitamin C take 1 capsule by mo [facility] once daily Immune Essentials 333.33 mg oral capsule ; 1 cap(s) orally once a day Quantity: 0 Refills: 0 Ordered: 12-Nov-2022 Marilou Alicea Generic Substitution Allowed Completed/Discontinued Medications Medication Drug Class(es) Dates Sig (Normalized) Sig (Original) amoxicillin 875 mg oral tablet (2 sources) Penicillin-class Antibacterial Start: 03-22-2021 End: 03-31-2021 take 1 tablet by mouth twice daily amoxicillin 875 mg oral tablet ; 1 tab(s) orally 2 times a day Quantity: 20 Refills: 0 Ordered: 22-Mar-2021 Loc Luther Start: 22-Mar-2021 End: 31-Mar-2021 Generic Substitution Allowed Comments: Finish all this medication unless otherwise directed by prescriber. Problems Active Problems Problem Classification Problem Date Documented Da te Episodic/Chronic Abdominal pain (8 sources) Abdominal pain; Translations: [Flank pain] Onset: 11-12-2022 Resolved: 10-23-2022 10-23-2022 Episodic Past or Other Problems Problem Classification Problem Date Documented Da te Episodic/Chronic Unclassified (3 sources) No history of clinical finding in subject; Translations: [No significant past medical history] Results Test Name Value Interpretation Reference Range Facil ity Vital Signs Date Time Vital Sign Value Performing Clinician Facility 12-09-2022 09:53-0400 Body mass index (BMI) [Ratio] 31.25 kg/m2 Keyshawn Garza Daniel Work Phone: [facility] Work Phone: 12-09-2022 09:53-0400 Body surface area Derived from formula 1.7 m2 Keyshawn Garza Daniel Work Phone: [facility] Work Phone: 12-09-2022 09:53-0400 Body weight 72.58 kg Keyshawn Garza Daniel Work Phone: [facility] Work Phone: 11-26-2022 12:41-0400 Body height 152.4 cm Hi Bustillo MD MPH Work Phone: [facility] 11-26-2022 12:41-0400 Body mass index (BMI) [Ratio] 31.82 kg/m2 Hi Bustillo MD MPH Work Phone: [facility] 11-26-2022 12:41-0400 Body weight 73.9 kg Hi Bustillo MD MPH Work Phone: [facility] 11-12-2022 13:39-0400 Diastolic blood pressure 73 mm[Hg] Keyshawn Sanchez Other Phone: [facility] 11-12-2022 13:39-0400 Heart rate 87 /min Keyshawn Sanchez Other Phone: [facility] 11-12-2022 13:39-0400 Respiratory rate 16 /min Keyshawn Sanchez Other Phone: [facility] 11-12-2022 13:39-0400 SaO2% (BldA) [Mass fraction] 97 % Keyshawn Sanchez Other Phone: [facility] 11-12-2022 13:39-0400 Systolic blood pressure 141 mm[Hg] Keyshawn Sanchez Other Phone: [facility] 11-12-2022 10:20-0400 Body height 152.4 cm Keyshawn Sanchez Other Phone: [facility] 11-12-2022 10:20-0400 Body temperature 96.8 [degF] Keyshawn Sanchez Other Phone: [facility] 11-12-2022 10:20-0400 Body weight 72.3 kg Keyshawn Sanchez Other Phone: [facility] 10-28-2022 10:37-0400 Body height 152.4 cm Keyshawn Sanchez Work Phone: [facility] Work Phone: 10-28-2022 10:37-0400 Body mass index (BMI) [Ratio] 31.27 kg/m2 Keyshawn Sanchez Work Phone: [facility]pwk[facility] Work Phone: 10-28-2022 10:37-0400 Body surface area Derived from formula 1.7 m2 Keyshawn Sanchez Work Phone: [facility]Ycyknpn[facility]Gmoxhal Work Phone: 10-28-2022 10:37-0400 Body weight 72.63 kg Keyshawn Sanchez Work Phone: CJ[facility]Wchnpgt[facility]Yyqmyoi Work Phone: 10-28-2022 10:37-0400 Diastolic blood pressure 90 mm[Hg] Keyshawn Sanchez Work Phone: [facility]Latw[facility]Bbhfny[facility] Work Phone: 10-28-2022 10:37-0400 Heart rate 78 /min Keyshawn Sanchez Work Phone: WE[facility]Lsvyovq[facility]Gcwytox Work Phone: 10-28-2022 10:37-0400 Systolic blood pressure 159 mm[Hg] Keyshawn Sanchez Work Phone: [facility]Zemdjlu[facility]Pqonqrb Work Phone: 10-26-2022 09:50-0400 Body temperature 98.96 [degF] Keyshawn Sanchez Other Phone: [facility] 10-26-2022 09:50-0400 Diastolic blood pressure 94 mm[Hg] Keyshawn Sanchez Other Phone: [facility] 10-26-2022 09:50-0400 Heart rate 99 /min Keyshawn Sanchez Other Phone: [facility] 10-26-2022 09:50-0400 Respiratory rate 16 /min Keyshawn Sanchez Other Phone: [facility] 10-26-2022 09:50-0400 SaO2% (BldA) [Mass fraction] 92 % Keyshawn Sanchez Other Phone: [facility] 10-26-2022 09:50-0400 Systolic blood pressure 141 mm[Hg] Keyshawn Sanchez Other Phone: [facility] 05-28-2021 15:20-0500 Diastolic blood pressure 79 mm[Hg] Text Entry Free [facility] 05-28-2021 15:20-0500 Heart rate 80 /min Text Entry Free [facility] 05-28-2021 15:20-0500 Respiratory rate 16 /min Text Entry Free [facility] 05-28-2021 15:20-0500 SaO2% (BldA) [Mass fraction] 98 % Text Entry Free [facility] 05-28-2021 15:20-0500 Systolic blood pressure 142 mm[Hg] Text Entry Free [facility] 05-28-2021 12:42-0500 Body height 152.4 cm Text Entry Free [facility] 05-28-2021 12:42-0500 Body temperature 97.34 [degF] Text Entry Free [facility] 05-28-2021 12:42-0500 Body weight 68.2 kg Text Entry Free [facility] 03-22-2021 13:0500 Body height 152.4 cm Text Entry Free [facility] 03-22-2021 13:0500 Body temperature 98.06 [degF] Text Entry Free [facility] 03-22-2021 13:-0500 Diastolic blood pressure 95 mm[Hg] Text Entry Free [facility] 03-22-2021 13:-0500 Heart rate 98 /min Text Entry Free [facility] 03-22-2021 13:0500 Respiratory rate 16 /min Text Entry Free [facility] 03-22-2021 13:0500 SaO2% (BldA) [Mass fraction] 96 % Text Entry Free [facility] 03-22-2021 13:0500 Systolic blood pressure 138 mm[Hg] Text Entry Free [facility] Encounters Encounter Date Encounter Type Care Provider Facility Start: 03-24-2023 End: 03-24-2023 ambulatory [facility] Start: 03-17-2023 End: 03-18-2023 ambulatory [facility] Start: 03-17-2023 End: 03-17-2023 Subsequent hospital visit by physician Skinny Snow 1 [facility] Procedures Date Procedure Procedure Detail Performing Clinician Start: 03-17-2023 US RENAL COMPLETE HI BUSTILLO Start: 03-17-2023 Us retroperitoneal r eal time w/image complete Hi Bustillo MD MPH Work Phone: Start: 11-29-2022 X-ray urinary tract exam with contrast material Hi Bustillo MD MPH Work Phone: Appendectomy Keyshawn lao Work Phone: Excision of bunion Keyshawn Sanchez Work Phone: Ureteroscopy Keyshawn lao Work Phone: Plan of Treatment Date Care Activity Detail Author Start: 07-14-2024 OCT OPTIC NERVE CIRR US OU (BOTH EYES) OCT OPTIC NERVE CIRRUS OU (BOTH EYES) OPHT Imaging Routine Glaucoma suspect of both eyes Expected: 07/14/2024 [facility] Work Phone: Payers Date Payer Category Payer Unknown 2022 [employer] ( [employer] others) [id number] 2022 [employer] ( [employer] others[place] [employer] [id number] 2022-Present [address] [place] [address] [id number] 2021 [employer] ( and others) [id number] 1973 Unknown [id number] 1973 Unknown [id number] 1973 Unknown [id number] 1973 Unknown [id number] 1973 Unknown [id number] 1973 Unknown [id number] 1973 Unknown [id number] Social History Date Type Detail Facility [facility] Tobacco smoking consumption unknown [facility] Start: 05-10-2021 Tobacco smoking stat us NHIS Never smoked tobacco [facility] Start: 05-10-2021 Tobacco use and exposure Smokeless tobacco non-user [facility] Start: 07-25-2022 Alcohol intake Current drinke r of alcohol (finding) [facility] Start: 05-10-2021 Alcohol Comment social- wine [facility] Start: 1975 Sex Assigned At Not on file [facility] Never smoked cigarettes Never smoked ciga rettes [facility] Work Phone: Gender identity Not on file [facility] [employer] [facility] Work Phone: Start: 03-07-2023 End: 03-17-2023 Exposure to SARS-CoV-2 (event) Not sure [facility] Functional Status Date Assessment Result Facility Functional observable [facility] Mental Status Date Assessment Result Facility 10-24-2022 Cognitive functi ons [id number] [facility] Clinical Notes 07-25-2022 to 11-29-2022 Op Note - Hi Bustillo MD MPH - 11/29/2022 9:50 AM EDTOp Note - Hi Bustillo MD MPH - 11/29/2022 9:50 AM EDTRamy Roger Bustillo MD MPH - 11/29/2022 8:49 AM EDTPatient Instructions Note Date & Type Note Facility 11-29-2022 Note PROCEDURE DETAILS Preoperative Diagnosis: Calculus of left kidney, N20.0 Postoperative Diagnosis: Calculus of left kidney, N20.0 Surgeon: Hi Rossi Resident/Fellow/Other Quality Control Lab Tech: None of these were associated with this case Procedure: 1. CYSTO L RPG L URETEROSCOPY W ELIZABETH L STENT Anesthesia: Dom Hemal Estimated Blood Loss: 0 Findings: see op note Specimens(s) Collected: no, Operative Report: Preoperative diagnosis: Left kidney stone Postoperative diagnosis: The same Physician: Hi Rossi Procedure: Cystoscopy with Left RPG, Left ureteroscopy with holmium and stent exchange ESTIMATED BLOOD LOSS: Minimal. COMPLICATIONS: None. INDICATIONS AND CONSENT: After the risks, benefits, alternatives and indications of this procedure were explained to the patient consented. PROCEDURE: The patient was brought to the operating room, placed on the table in supine position. After adequate anesthesia was obtained, the patient was prepped and draped in the standard surgical fashion. First, a 21 Malaysian cystoscope was inserted into the bladder, the old stent was removed to the outside with a stent grasper formal cystoscopy was performed. A guidewire was placed up the ureter into the renal pelvis using fluoroscopic guidance through the old stent. . A left retrograde pyelogram suggested a filling defect in the kidney . The flexible ureteroscope was taken up to the level of the stone. The stone was visualized and Pb laser was used to break up the stone. Pt had some residua sone fragments and stone pieces, we had to stop because of bleeding in the renal pelvis and very poor visibility. , we then shot a retrograde pyelogram which did not show any obvious filling defects or additional stones in the ureter. The ureteroscope was removed and a 5 x 26 double-J stent was placed under direct fluoroscopic vision. The patient tolerated the procedure well and there were no complications. She will fu with me in 2 weeks with KUB and stent removal Attestation: Note Completion: Attending AttestationI performed the procedure without a resident Electronic Signatures: Hi Rossi) (Signed 29-Nov-2022 14:17) Authored: Post-Operative Note, Chart Review, Note Completion Last Updated: 29-Nov-2022 14:17 by Hi Rossi) [facility] 11-29-2022 Note History of Present I llness: /Lactating: Are You no (1) Are You Currently Breastfeedingno (1) HPI: History of Present Illness 47 yo Patient is here today for kidney stones..S/P LEFT URETEROSCOPY w/ STENT...Pt states she has had no issues with the stent...some pressure with urination..No increased urgency or frequency...No dysuria..pt states she does have blood but she did start her period...Nocturia 3x.. Review of Systems Eye: negative Respiratory: No shortness of breath, No cough. Cardiovascular: No chest pain Gastrointestinal: No nausea Genitourinary: Negative except as documented in history of present illness. Hematology/Lymphatics: Patient denies being on blood thinners.. Endocrine: Negative. Immunologic: Not immunocompromised. Musculoskeletal: negative Integumentary: Negative. Neurologic: Alert and oriented X4. Psychiatric: Negative. Past Medical History Problems History of No significant past medical history Surgical History Problems History of Appendectomy History of Bunionectomy History of Ureteroscopy Family History Father Family history of diabetes mellitus (V18.0) (Z83.3) Social History Problems Never smoked cigarettes (V49.89) (Z78.9) Allergies Medication Mobic TABS Recorded By: Claudia Martínez; 10/28/2022 10:45:02 AM Current Meds Medication NameInstruction DULoxetine HCl - 30 MG Oral Capsule Delayed Release Particles Pipe-In-Virginie SOLN Flonase SUSP Stool Softener Plus Laxative CAPS Physical Exam General: Well developed, well nourished, alert and cooperative, appears in no acute distress Eyes: Non-injected conjunctiva, sclera clear, no proptosis Cardiac: Extremities are warm and well perfused. No edema, cyanosis or pallor Lungs: Breathing is easy, non-labored. Speaking in clear and complete sentences. Normal diaphragmatic movement MSK: Ambulatory with steady gait, unassisted Neuro: Alert and oriented to person, place, and time Psych: Demonstrates good judgment and reason, without hallucinations, abnormal affect or abnormal behaviors Skin: No obvious lesions, no rashes No CVA tenderness bilaterally No suprapubic pain or discomfort Allergies: Mobic: Seizure Bee Stings: Anaphylaxis Medications Prior to Admission: Admission Medication Reconciliation has not been completed for this patient. Objective: Objective Information: Pain reported at 11/29 6:15: 6 = Moderate Assessment and Plan: Assessment: S/P LEFT URETEROSCOPY w/ STENT 47 year old very pleasant female presents today 3 days s/p LEFT URETEROSCOPY w/ STENT. We had a very long and extensive discussion with the patient regarding her condition. I discussed with her the pathophysiology, differential diagnosis, risk factor, management of ureteral stones. I gave the patient 2 options of management. We discussed the option of ESWL prior to stent removal. We discussed at length a repeat left ureteroscopy, laser stone fragmentation, left retrograde pyelogram, left double-J stent exchange. We discussed in detail the risk, benefit, potential complication, adverse events including hematuria, pneumaturia, pain, stent discomfort and pain, fever, chills, infection, urosepsis. Patient presents and elect to proceed. Plan Schedule patient for left ureteroscopy, laser stone fragmentation, left retrograde pyelogram, left double-J stent exchange Impression 1: Left kidney stone Plan for Impression 1: left ureteroscopy, laser stone fragmentation, left retrograde pyelogram, left double-J stent exchange Electronic Signatures: Hi Rossi) (Signed 18-Aug-2023 08:51) Authored: History of Present Illness, Comorbidities, Allergies, Medications Prior to Admission, Objective, Assessment and Plan, Note Completion Last Updated: 29-Nov-2022 08:51 by Hi Rossi) References: 1. Data Referenced From History and Physical - Surgical Update < 30 days 29-Nov-2022 07:44 [facility] 11-29-2022 Miscellaneous Notes PROCEDURE DETAILS Preoperative Diagnosis: Calculus of left kidney, N20.0 Postoperative Diagnosis: Calculus of left kidney, N20.0 Surgeon: Hi Rossi Resident/Fellow/Other Quality Control Lab Tech: None of these were associated with this case Procedure: 1. CYSTO L RPG L URETEROSCOPY W ELIZABETH L STENT Anesthesia: Hemal Fernandes Estimated Blood Loss: 0 Findings: see op note Specimens(s) Collected: no, Operative Report: Preoperative diagnosis: Left kidney stone Postoperative diagnosis: The same Physician: Hi Rossi Procedure: Cystoscopy with Left RPG, Left ureteroscopy with holmium and stent exchange ESTIMATED BLOOD LOSS: Minimal. COMPLICATIONS: None. INDICATIONS AND CONSENT: After the risks, benefits, alternatives and indications of this procedure were explained to the patient consented. PROCEDURE: The patient was brought to the operating room, placed on the table in supine position. After adequate anesthesia was obtained, the patient was prepped and draped in the standard surgical fashion. First, a 21 Malaysian cystoscope was inserted into the bladder, the old stent was removed to the outside with a stent grasper formal cystoscopy was performed. A guidewire was placed up the ureter into the renal pelvis using fluoroscopic guidance through the old stent. . A left retrograde pyelogram suggested a filling defect in the kidney . The flexible ureteroscope was taken up to the level of the stone. The stone was visualized and Pb laser was used to break up the stone. Pt had some residua sone fragments and stone pieces, we had to stop because of bleeding in the renal pelvis and very poor visibility. , we then shot a retrograde pyelogram which did not show any obvious filling defects or additional stones in the ureter. The ureteroscope was removed and a 5 x 26 double-J stent was placed under direct fluoroscopic vision. The patient tolerated the procedure well and there were no complications. She will fu with me in 2 weeks with KUB and stent removal Attestation: Note Completion: Attending Attestation I performed the procedure without a resident Electronic Signatures: Hi Rossi) (Signed 29-Nov-2022 14:17) Authored: Post-Operative Note, Chart Review, Note Completion Last Updated: 29-Nov-2022 14:17 by Hi Rossi) documented in this encounter [facility] Work Phone: 11-29-2022 Note Formatting of this n ote is different from the original. PROCEDURE DETAILS Preoperative Diagnosis: Calculus of left kidney, N20.0 Postoperative Diagnosis: Calculus of left kidney, N20.0 Surgeon: Hi Rossi Resident/Fellow/Other Quality Control Lab Tech: None of these were associated with this case Procedure: 1. CYSTO L RPG L URETEROSCOPY W ELIZABETH L STENT Anesthesia: Hemal Fernandes Estimated Blood Loss: 0 Findings: see op note Specimens(s) Collected: no, Operative Report: Preoperative diagnosis: Left kidney stone Postoperative diagnosis: The same Physician: Hi Rossi Procedure: Cystoscopy with Left RPG, Left ureteroscopy with holmium and stent exchange ESTIMATED BLOOD LOSS: Minimal. COMPLICATIONS: None. INDICATIONS AND CONSENT: After the risks, benefits, alternatives and indications of this procedure were explained to the patient consented. PROCEDURE: The patient was brought to the operating room, placed on the table in supine position. After adequate anesthesia was obtained, the patient was prepped and draped in the standard surgical fashion. First, a 21 Malaysian cystoscope was inserted into the bladder, the old stent was removed to the outside with a stent grasper formal cystoscopy was performed. A guidewire was placed up the ureter into the renal pelvis using fluoroscopic guidance through the old stent. . A left retrograde pyelogram suggested a filling defect in the kidney . The flexible ureteroscope was taken up to the level of the stone. The stone was visualized and Pb laser was used to break up the stone. Pt had some residua sone fragments and stone pieces, we had to stop because of bleeding in the renal pelvis and very poor visibility. , we then shot a retrograde pyelogram which did not show any obvious filling defects or additional stones in the ureter. The ureteroscope was removed and a 5 x 26 double-J stent was placed under direct fluoroscopic vision. The patient tolerated the procedure well and there were no complications. She will fu with me in 2 weeks with KUB and stent removal Attestation: Note Completion: Attending Attestation I performed the procedure without a resident Electronic Signatures: Hi Rossi) (Signed 29-Nov-2022 14:17) Authored: Post-Operative Note, Chart Review, Note Completion Last Updated: 29-Nov-2022 14:17 by Hi Rossi) T [facility] Work Phone: 11-29-2022 Note History & Physical R eviewed: /Lactating: Are You no Are You Currently Breastfeedingno I have reviewed the History and Physical dated: 30-Oct-2022 History and Physical reviewed and relevant findings noted. Patient examined to review pertinent physical findings.: No significant changes Home Medications Reviewed: no changes noted Allergies Reviewed: no changes noted ERAS (Enhanced Recovery After Surgery): ERAS Patient: no Consent: COVID-19 Consent: COVID-19 Risk ConsentSurgeon has reviewed walton risks related to the risk of aye COVID-19 and if they contract COVID-19 what the risks are. Electronic Signatures: Hi Rossi) (Signed 29-Nov-2022 07:44) Authored: History & Physical Reviewed, ERAS, Consent, Note Completion Last Updated: 29-Nov-2022 07:44 by Hi Rossi) [facility] 11-29-2022 History and physical note History of Present Illness: /Lactating: Are You no (1) Are You Currently no (1) HPI: History of Present Illness 47 yo Patient is here today for kidney stones..S/P LEFT URETEROSCOPY w/ STENT...Pt states she has had no issues with the stent...some pressure with urination..No increased urgency or frequency...No dysuria..pt states she does have blood but she did start her period...Nocturia 3x.. Review of Systems Eye: negative Respiratory: No shortness of breath, No cough. Cardiovascular: No chest pain Gastrointestinal: No nausea Genitourinary: Negative except as documented in history of present illness. Hematology/Lymphatics: Patient denies being on blood thinners.. Endocrine: Negative. Immunologic: Not immunocompromised. Musculoskeletal: negative Integumentary: Negative. Neurologic: Alert and oriented X4. Psychiatric: Negative. Past Medical History Problems History of No significant past medical history Surgical History Problems History of Appendectomy History of Bunionectomy History of Ureteroscopy Family History Father Family history of diabetes mellitus (V18.0) (Z83.3) Social History Problems Never smoked cigarettes (V49.89) (Z78.9) Allergies Medication Mobic TABS Recorded By: Claudia Martínez; 10/28/2022 10:45:02 AM Current Meds Medication Name Instruction DULoxetine HCl - 30 MG Oral Capsule Delayed Release Particles Pipe-In-Virginie SOLN Flonase SUSP Stool Softener Plus Laxative CAPS Physical Exam General: Well developed, well nourished, alert and cooperative, appears in no acute distress Eyes: Non-injected conjunctiva, sclera clear, no proptosis Cardiac: Extremities are warm and well perfused. No edema, cyanosis or pallor Lungs: Breathing is easy, non-labored. Speaking in clear and complete sentences. Normal diaphragmatic movement MSK: Ambulatory with steady gait, unassisted Neuro: Alert and oriented to person, place, and time Psych: Demonstrates good judgment and reason, without hallucinations, abnormal affect or abnormal behaviors Skin: No obvious lesions, no rashes No CVA tenderness bilaterally No suprapubic pain or discomfort Allergies: Mobic : Seizure Bee Stings: Anaphylaxis Medications Prior to Admission: Admission Medication Reconciliation has not been completed for this patient. Objective: Objective Information: Pain reported at 11/29 6:15: 6 = Moderate Assessment and Plan: Assessment: S/P LEFT URETEROSCOPY w/ STENT 47 year old very pleasant female presents today 3 days s/p LEFT URETEROSCOPY w/ STENT. We had a very long and extensive discussion with the patient regarding her condition. I discussed with her the pathophysiology, differential diagnosis, risk factor, management of ureteral stones. I gave the patient 2 options of management. We discussed the option of ESWL prior to stent removal. We discussed at length a repeat left ureteroscopy, laser stone fragmentation, left retrograde pyelogram, left double-J stent exchange. We discussed in detail the risk, benefit, potential complication, adverse events including hematuria, pneumaturia, pain, stent discomfort and pain, fever, chills, infection, urosepsis. Patient presents and elect to proceed. Plan Schedule patient for left ureteroscopy, laser stone fragmentation, left retrograde pyelogram, left double-J stent exchange Impression 1: Left kidney stone Plan for Impression 1: left ureteroscopy, laser stone fragmentation, left retrograde pyelogram, left double-J stent exchange Electronic Signatures: Hi Rossi) (Signed 29-Nov-2022 08:51) Authored: History of Present Illness, Comorbidities, Allergies, Medications Prior to Admission, Objective, Assessment and Plan, Note Completion Last Updated: 29-Nov-2022 08:51 by Hi Rossi) References: 1. Data Referenced From History and Physical - Surgical Update < 30 days 29-Nov-2022 07:44 T [facility] Work Phone: 11-29-2022 History and physical note History of Present Illness: /Lactating: Are You no (1) Are You Currently no (1) HPI: History of Present Illness 47 yo Patient is here today for kidney stones..S/P LEFT URETEROSCOPY w/ STENT...Pt states she has had no issues with the stent...some pressure with urination..No increased urgency or frequency...No dysuria..pt states she does have blood but she did start her period...Nocturia 3x.. Review of Systems Eye: negative Respiratory: No shortness of breath, No cough. Cardiovascular: No chest pain Gastrointestinal: No nausea Genitourinary: Negative except as documented in history of present illness. Hematology/Lymphatics: Patient denies being on blood thinners.. Endocrine: Negative. Immunologic: Not immunocompromised. Musculoskeletal: negative Integumentary: Negative. Neurologic: Alert and oriented X4. Psychiatric: Negative. Past Medical History Problems History of No significant past medical history Surgical History Problems History of Appendectomy History of Bunionectomy History of Ureteroscopy Family History Father Family history of diabetes mellitus (V18.0) (Z83.3) Social History Problems Never smoked cigarettes (V49.89) (Z78.9) Allergies Medication Mobic TABS Recorded By: Claudia Martínez; 10/28/2022 10:45:02 AM Current Meds Medication Name Instruction DULoxetine HCl - 30 MG Oral Capsule Delayed Release Particles Pipe-In-Virginie SOLN Flonase SUSP Stool Softener Plus Laxative CAPS Physical Exam General: Well developed, well nourished, alert and cooperative, appears in no acute distress Eyes: Non-injected conjunctiva, sclera clear, no proptosis Cardiac: Extremities are warm and well perfused. No edema, cyanosis or pallor Lungs: Breathing is easy, non-labored. Speaking in clear and complete sentences. Normal diaphragmatic movement MSK: Ambulatory with steady gait, unassisted Neuro: Alert and oriented to person, place, and time Psych: Demonstrates good judgment and reason, without hallucinations, abnormal affect or abnormal behaviors Skin: No obvious lesions, no rashes No CVA tenderness bilaterally No suprapubic pain or discomfort Allergies: Mobic : Seizure Bee Stings: Anaphylaxis Medications Prior to Admission: Admission Medication Reconciliation has not been completed for this patient. Objective: Objective Information: Pain reported at 11/29 6:15: 6 = Moderate Assessment and Plan: Assessment: S/P LEFT URETEROSCOPY w/ STENT 47 year old very pleasant female presents today 3 days s/p LEFT URETEROSCOPY w/ STENT. We had a very long and extensive discussion with the patient regarding her condition. I discussed with her the pathophysiology, differential diagnosis, risk factor, management of ureteral stones. I gave the patient 2 options of management. We discussed the option of ESWL prior to stent removal. We discussed at length a repeat left ureteroscopy, laser stone fragmentation, left retrograde pyelogram, left double-J stent exchange. We discussed in detail the risk, benefit, potential complication, adverse events including hematuria, pneumaturia, pain, stent discomfort and pain, fever, chills, infection, urosepsis. Patient presents and elect to proceed. Plan Schedule patient for left ureteroscopy, laser stone fragmentation, left retrograde pyelogram, left double-J stent exchange Impression 1: Left kidney stone Plan for Impression 1: left ureteroscopy, laser stone fragmentation, left retrograde pyelogram, left double-J stent exchange Electronic Signatures: Hi Rossi) (Signed 29-Nov-2022 08:51) Authored: History of Present Illness, Comorbidities, Allergies, Medications Prior to Admission, Objective, Assessment and Plan, Note Completion Last Updated: 29-Nov-2022 08:51 by Hi Rossi) References: 1. Data Referenced From History and Physical - Surgical Update < 30 days 29-Nov-2022 07:44 History & Physical Reviewed: /Lactating: Are You no Are You Currently no I have reviewed the History and Physical dated: 30-Oct-2022 History and Physical reviewed and relevant findings noted. Patient examined to review pertinent physical findings.: No significant changes Home Medications Reviewed: no changes noted Allergies Reviewed: no changes noted ERAS (Enhanced Recovery After Surgery): ERAS Patient: no Consent: COVID-19 Consent: COVID-19 Risk Consent Surgeon has reviewed [place] risks related to the risk of aye COVID-19 and if they contract COVID-19 what the risks are. Electronic Signatures: Hi Rossi) (Signed 29-Nov-2022 07:44) Authored: History & Physical Reviewed, ERAS, Consent, Note Completion Last Updated: 29-Nov-2022 07:44 by Hi Rossi) documented in this encounter [facility] Work Phone: 11-29-2022 History and physical note History & Physical Reviewed: /Lactating: Are You no Are You Currently no I have reviewed the History and Physical dated: 30-Oct-2022 History and Physical reviewed and relevant findings noted. Patient examined to review pertinent physical findings.: No significant changes Home Medications Reviewed: no changes noted Allergies Reviewed: no changes noted ERAS (Enhanced Recovery After Surgery): ERAS Patient: no Consent: COVID-19 Consent: COVID-19 Risk Consent Surgeon has reviewed [place] risks related to the risk of aye COVID-19 and if they contract COVID-19 what the risks are. Electronic Signatures: Hi Rossi) (Signed 29-Nov-2022 07:44) Authored: History & Physical Reviewed, ERAS, Consent, Note Completion Last Updated: 29-Nov-2022 07:44 by Hi Rossi) [facility] Work Phone: 10-25-2022 Note PROCEDURE DETAILS Preoperative Diagnosis: Calculus of left kidney, N20.0 Postoperative Diagnosis: Calculus of left kidney, N20.0 Surgeon: Hi Rossi Resident/Fellow/Other Quality Control Lab Tech: None of these were associated with this case Procedure: 1. CYSTO L RPG L URETEROSCOPY W ELIZABETH L STENT Anesthesia: Venkata Alarcon Estimated Blood Loss: 0 Findings: See Op note Specimens(s) Collected: no, Operative Report: Preoperative diagnosis: Left ureteral stone Postoperative diagnosis: The same Physician: Hi Rossi Procedure: Cystoscopy with Left RPG, Left ureteroscopy with holmium with partial stone fragmentation and stent placement ESTIMATED BLOOD LOSS: Minimal. COMPLICATIONS: None. INDICATIONS AND CONSENT: After the risks, benefits, alternatives and indications of this procedure were explained to the patient consented. PROCEDURE: The patient was brought to the operating room, placed on the table in supine position. After adequate anesthesia was obtained, the patient was prepped and draped in the standard surgical fashion. First, a 21 Malaysian cystoscope was inserted into the bladder, and formal cystoscopy was performed. A guidewire was placed up the ureter into the renal pelvis using fluoroscopic guidance . A left retrograde pyelogram suggested a filling defect in the ureter at the level of the left UPJ. The ureteroscope was taken up to the level of the stone. The stone was visualized and Holmium laser was used to break up the stone. Around 20% of the stone was fragmented with the laser, however we had to stop mbecause of severe ureteral spasm and very poor visibility. The stone was at least 1.5cm., we then shot a retrograde pyelogram which did not show obvious filling defects of the stones in the left renal pelvis. The ureteroscope was removed and a 5 x 26 double-J stent was placed under direct fluoroscopic vision. The patient tolerated the procedure well and there were no complications. SHe will fu with me in 1 week in the office to discuss second stage URS Vs left ESWL. Attestation: Note Completion: Attending AttestationI performed the procedure without a resident Electronic Signatures: Hi Rossi) (Signed 25-Oct-2022 08:01) Authored: Post-Operative Note, Chart Review, Note Completion Last Updated: 25-Oct-2022 08:01 by Hi Rossi) [facility] 10-24-2022 Note Send Summary: Discharge Summary Providers: Provider RoleProvider Name Diomedes Heller Ramy Nurse Princess Cruz Richard E Note Recipients: none Discharge: Summary: Admission Date: .23-Oct-2022 17:45:00 Discharge Date: 26-Oct-2022 Attending Physician at Discharge: Dr simpson Admission Reason: lt flank pain Final Discharge Diagnoses: Acute left flank pain, Calculus of left ureter, Hydronephrosis, left, Leukocytosis Procedures: Date: 25-Oct-2022 07:57:00 Procedure Name: 1. CYSTO L RPG L URETEROSCOPY W ELIZABETH L STENT Condition at Discharge: Satisfactory Disposition at Discharge: Home Vital Signs: T PRBPMAPSpO2 [id number]% Date/Time10/26 7:5010/26 7:5010/26 7:5010/26 7:5010/25 15:15 7:50 Range(36.2C - 37.6C ) (91 - 122 ) (16 - 20 ) (121 - 149 )/ (73 - 94 ) (93 - 97 ) (90% - 96% ) Highest temp of 37.6 C was recorded at 10/25 12:24 Date: Weight/Scale Type:Height: 23-Oct-2022 21:2761.1 kg / rav902.4 cm Physical Exam: General Appearance: AAO x 3, not in acute distress Skin: skin color pink, warm, and dry; no suspicious rashes or lesions Eyes : PERRL, EOM's intact ENT: mucous membranes pink and moist Neck: normocephalic Respiratory: lungs clear to auscultation anteriorly; no wheezing, rhonchi, or crackles. on O2 at 2L Heart: regular rate and rhythm without murmur Abdomen: Nondistended, positive bowel sounds x4, soft, tenderness noted to left side of abdomen Extremities: no edema x4 extremities Peripheral pulses: normal x4 extremities Neuro: alert, coherent and conversant, no focal motor deficits Hospital Course: Patient presented to [facility] ED on October 24 for left-sided flank pain. Vital signs upon presentation were temp afebrile, heart rate 70, respiratory rate 20, blood pressure 193/111, and oxygen saturation 98% on room air. Lab findings showed potassium 3.4. WBC normal at 10.7. CT of the abdomen pelvis showed a 1.5 x 1.4 cm calculus obstructing the left ureteropelvic junction resulting in moderate hydronephrosis. Urinalysis done negative for nitrites and showed a trace of leukocyte esterase, and 1+ bacteria. Patient received ciprofloxacin, Dilaudid, IV morphine, Zofran, and IV fluids in the emergency room. Patient admitted for moderate left hydronephrosis, left ureteral calculi, and UTI. Patient was seen by urology and is status post cystoscopy with a left RPG. During your hospitalization you were seen by urologist Dr. Bustillo and cystoscopy was performed and stent placement follow-up with Dr. Tariq in his office on October 28 at 10:15 AM. Follow-up with primary care physician within 2 weeks postdischarge. Discharge oxycodone 5 mg p.o. to 6 as needed for pain x3 days and Pyridium 200 mg p.o. 3 times daily as needed for bladder spasms E scribed to [facility] pharmacy in [place]. Call 911 or go to nearest ED if symptoms worsen or persist Discharge Information: and Continuing Care: Lab Results - Pending: None Radiology Results - Pending: None Discharge Instructions: Activity: activity as tolerated. May shower.. May return to school/work. May drive.. Nutrition/Diet: regular Diet Consistency/Texture: regular / thin Additional Orders: Additional Instructions: Discharge plan Resume home medications Start oxycodone 5 mg p.o. every 6 as needed for flank pain 3 days Start Pyridium 200 mg p.o. 3 times daily as needed for bladder spasms Follow-up with Dr. Tariq on October 28 at 10:15 AM in his office Follow-up with primary care physician within 2 weeks postdischarge Call 911 or go to nearest ED if symptoms worsen or persist Follow Up Appointments: Follow-Up Appointment 01: Physician/Dept/Service: PCP Reason for Referral: hospitalization Call to Schedule in: 2 weeks Follow-Up Appointment 02: Physician/Dept/Service: Dr. Bustillo Reason for Referral: renal stone Scheduled Date/Time: 28-Oct-2022 10:15 Discharge Medications: Home Medication Colace - null Flonase - null Cymbalta 30 mg oral delayed release capsule - 1 cap(s) orally 2 times a day iron sulfate - 1 tab(s) orally once a day Vitamin C 250 mg oral tablet - 1 tab(s) orally once a day PRN Medication phenazopyridine 200 mg oral tablet - 1 tab(s) orally 3 times a day (after meals), As Needed for bladder spasms oxyCODONE 5 mg oral capsule - 1 cap(s) orally every 6 hours, As Needed for left flank pain ICD code R10.32 DNR Status: Code StatusCode Status order at time of discharge: Full Code Electronic Signatures: Tanya Haas ([facility]) (Signed 26-Oct-2022 08:38) Authored: Summary Content, Ongoing Care, Note Completion Princess Butterfield ([facility]) (Signed 24-Oct-2022 15:55) Authored: Send Summary, Summary Content, Ongoing Care, DNR Status Last Updated: 26-Oct-2022 08:38 by Tanya Haas ([facility]) [facility] 10-24-2022 Note History & Physical R eviewed: /Lactating: Are You no (1) Are You Currently Breastfeedingno (1) I have reviewed the History and Physical dated: 24-Oct-2022 History and Physical reviewed and relevant findings noted. Patient examined to review pertinent physical findings.: No significant changes Home Medications Reviewed: no changes noted Allergies Reviewed: no changes noted ERAS (Enhanced Recovery After Surgery): ERAS Patient: no Consent: COVID-19 Consent: COVID-19 Risk ConsentSurgeon has reviewed [place] risks related to the risk of aye COVID-19 and if they contract COVID-19 what the risks are. Electronic Signatures: Hi Rossi) (Signed 24-Oct-2022 07:29) Authored: History & Physical Reviewed, ERAS, Consent, Note Completion Last Updated: 24-Oct-2022 07:29 by Hi Rossi) References: 1. Data Referenced From Patient Profile - Adult v2 23-Oct-2022 21:27 [facility] 10-24-2022 Note History of Present I llness: HPI: CHASITY ROSARIO is a 47 year old Female Who presented to the emergency room for left-sided flank pain. On presentation, blood pressure 193/111, heart rate 70, respiratory rate 20, afebrile, saturation oxygen 98% on room air. Pertinent findings on blood work-up; potassium 3.4. CT scan of the abdomen and pelvis showed a 1.5 x 1.4 cm calculus obstructing the left ureteropelvic junction resulting in moderate hydronephrosis. Patient was given in the emergency room 400 mg IV ciprofloxacin, IV Dilaudid, IV morphine, Zofran, and IV fluids and then admitted to the medical service for further investigation and management. Patient reports currently that she is still having the pain. It is still moderate to severe in the left flank. It started several hours ago out of the blue. Did not have any fever or chills. No vomiting. No constipation. No diarrhea. This is the first time she experiences such pain. Review of Systems: 10 systems were reviewed and were negative except for those noted in the history of present illness. Past medical history: Kidney stones, depression, iron deficiency anemia, she has hypertension in the past that was stress related and then it resolved and her PCP took her off the blood pressure medications Past surgical history: Appendectomy, bunionectomy Social history: Nonsmoker, no alcohol abuse. She is Family history:. Has been reviewed and there are no findings pertinent to the chief complaint Allergies: Mobic: Seizure Medications Prior to Admission: Colace: null Flonase: null Cymbalta 30 mg oral delayed release capsule: 1 cap(s) orally 2 times a day iron sulfate: 1 tab(s) orally once a day Vitamin C 250 mg oral tablet: 1 tab(s) orally once a day. Objective: Objective Information: T PRBPMAPSpO2 [id number]% Date/Time10/23 17:487 21: 21: 21: 21:25 Range(36.3C - 36.3C ) (70 - 81 ) (16 - 20 ) (147 - 196 )/ (92 - 111 ) (93% - 100% ) As of 23-Oct-2022 21:25:00, patient is on 2 L/min of oxygen via nasal cannula. Pain reported at 10/23 22:20: 8 = Severe Physical Exam by System: Constitutional: awake/alert/oriented x3, not in acute distress, Eyes: PERRL, EOMI, clear sclera ENMT: normal hearing, mucous membranes moist, no pharyngeal erythema or exudates Head/Neck: neck supple, no apparent injury, no JVD, no lymphadenopathy, trachea midline Respiratory/Thorax: patent airways, clear to auscultation bilaterally, no crackles or wheezing or rhonchi Cardiovascular: Regular, rate and rhythm, no murmurs, 2+ equal pulses of the extremities Gastrointestinal: nondistended, positive bowel sounds, soft, non-tender, no rebound tenderness or guarding, no masses palpable, no organomegaly Genitourinary: Left costophrenic angle significant tenderness Extremities: no edema Neurological: intact senses, motor, response and reflexes, normal strength, babinski negative Psychological: Appropriate mood and behavior Skin: warm, no rashes Recent Lab Results: Results: CBC: 10/23/2022 18:27 \ Hgb / \ 12.0 / WBC Plt 10.7 441 / Hct \ / 38.1 \ RBC: 4.59 MCV: 83 Neutrophil %: 65.8 CMP: 10/23/2022 18:27 NA+ Cl- BUN / 135 L 101 9 / - Glucose 94 K+ HCO3- Creat \ 3.4 L 23 0.54 \ \ T Bili / \ 0.3 / AST x ---- x ALT 19 x ---- x 16 / Alk P \ / 82 \ Calcium : 8.8 Anion Gap : 14 Albumin : 3.8 T Protein : 6.7 Radiology Results: Results: Impression: There is a 1.5 cm x 1.4 cm calculus obstructing the left ureteropelvic junction resulting in moderate hydronephrosis, marked edematous thickening of the left renal parenchyma, and perinephric stranding. There are additional nonobstructing left renal calculi measuring up to 2.4 cm x 0.9 cm. There is a 0.7 cm nonobstructing right renal calculus. Small hiatal hernia. Simple 3.6 cm x 2.3 cm left ovarian cyst. CT Abdomen and Pelvis without Contrast [Oct 23 2022 8:10PM] Assessment and Plan: Assessment: 47-year-old female with a past medical history of kidney stones, depression, and iron deficiency anemia, who presented to the emergency room for left-sided flank pain. CT scan of the abdomen pelvis showed a 1.5 x 1.4 cm calculus obstructing the left ureteropelvic junction resulting in moderate hydronephrosis. Urinalysis findings are consistent with urinary tract infection. Blood work-up showed hypokalemia. Admit patient to the inpatient medical service with vital signs monitoring. Consult urology. IV fluids normal saline at rate of 75 cc/hour. Continue with the ciprofloxacin 400 mg IV twice a day and follow-up with urine culture final report. I will also give Bentyl and Flomax. And give 1 dose of Toradol 30 mg IV. Additional morphine as needed. Continue the rest of (more content not included)... [facility] 07-25-2022 Note HNO ID: [id number] Author: Deborah Pavon II, OD Service: ? Author Type: LOOM TECHNICIAN Type: Progress Notes Filed: 07/25/2022 9:57 AM Note Text: Assessment and Plan H52.13 Myopia, bilateral (primary encounter diagnosis) H52.223 Regular astigmatism, bilateral H52.4 Presbyopia Comment: Ocular health improved with contact lens use now that patient not sleeping on contacts. Patient will switch to daily disposables in [place]uv[place]. Gave other trials. Ok to order supply or return for further fitting. Update glasses power as desired. Recheck in one year. H40.003 Glaucoma suspect of both eyes Comment: No optic nerve hemorrhage noted (right eye) as in past. Repeat OCT at next annual visit. Continue yearly observation. I have confirmed and edited as necessary the relevant ophthalmic history, ROS, and the neuro exam findings as obtained by others. I have seen and examined Chasity Rosario. I have discussed the case and the management of this patient's care with the Resident/Fellow, if applicable. I also have reviewed and agree with the assessment and plan as stated above and agree with all of its relevant components. Deborah Pavon II, OD [facility] 07-25-2022 Instructions Deborah Pavon II, OD - 07/25/2022 9:55 AM EDT Assessment and Plan H52.13 Myopia, bilateral (primary encounter diagnosis) H52.223 Regular astigmatism, bilateral H52.4 Presbyopia Comment: Ocular health improved with contact lens use now that patient not sleeping on contacts. Patient will switch to daily disposables in [place]uv[place]. Gave other trials. Ok to order supply or return for further fitting. Update glasses power as desired. Recheck in one year. H40.003 Glaucoma suspect of both eyes Comment: No optic nerve hemorrhage noted (right eye) as in past. Repeat OCT at next annual visit. Continue yearly observation. I have confirmed and edited as necessary the relevant ophthalmic history, ROS, and the neuro exam findings as obtained by others. I have seen and examined Chasity Rosario. I have discussed the case and the management of this patient's care with the Resident/Fellow, if applicable. I also have reviewed and agree with the assessment and plan as stated above and agree with all of its relevant components. Deborah Pavon II, OD documented in this encounter [facility] 07-25-2022 History of Presen t illness Narrative Assessment and Plan H52.13 Myopia, bilateral (primary encounter diagnosis) H52.223 Regular astigmatism, bilateral H52.4 Presbyopia Comment: Ocular health improved with contact lens use now that patient not sleeping on contacts. Patient will switch to daily disposables in [place]uv[place]. Gave other trials. Ok to order supply or return for further fitting. Update glasses power as desired. Recheck in one year. H40.003 Glaucoma suspect of both eyes Comment: No optic nerve hemorrhage noted (right eye) as in past. Repeat OCT at next annual visit. Continue yearly observation. I have confirmed and edited as necessary the relevant ophthalmic history, ROS, and the neuro exam findings as obtained by others. I have seen and examined Chasity Darby Rosario. I have discussed the case and the management of this patient's care with the Resident/Fellow, if applicable. I also have reviewed and agree with the assessment and plan as stated above and agree with all of its relevant components. Deborah Pavon II, ELAN documented in this encounter [facility] Psychological: Appropriate mood and behaviorNeurological: alert and oriented x3, intact senses, motor, response and reflexes, normal strengthExtremities: normal extremities, no cyanosis edema, contusions or wounds, no clubbingGastrointestinal: Nondistended, soft, little tender after procedure, +BS,no bruitsCardiovascular: Regular, rate and rhythm, no murmurs, 2+ equal pulses of the extremities, normal S 1and S 2Respiratory/Thorax: Patent airways, CTAB, normal breath sounds with good chest expansion, thorax symmetricHead/Neck: Neck supple, no apparent injury, thyroid without mass or tenderness, No JVD, trachea midline, no bruitsConstitutional: Well developed, awake/alert/oriented x3, no distress, alert and cooperative [facility] Diagnosis Calculus of kidney Pain, unspecified documented in this encounter [facility] Work Phone: Evaluation note* Diagnosis Calculus of ureter documented in this encounter [facility] Work Phone: History of Present illness NarrativePatient is here today for kidney stones..S/P LEFT URETEROSCOPY w/ STENT...Pt states she has had no issues with the stent...some pressure with urination..No increased urgency or frequency...No dysuria..pt states she does have blood but she did start her period...Nocturia 3x..[facility] Work Phone: Hospital Discharge instructions* Activity:activity as tolerated. May shower. May return to school/work Instructions:. May drive. * Additional Orders:Additional Instructions: Discharge planResume home medicationsStart oxycodone 5 mg p.o. every 6 as needed for flank pain3 daysStart Pyridium 200 mg p.o. 3 times daily as needed for bladder spasmsFollow-up with Dr. Tariq on October 28 at 10:15 AM in his officeFollow-up with primary care physician within 2 weeks postdischargeCall 911 or go to nearest ED if symptoms worsen or persist * Call Provider If:Breathing faster than normal. Breathing harder than normal or having retractions. Fever of 100.4 F (38 C) or higher. Temperature is greater than 102 degrees. Chills. Drinking less than normal. Not being able to go 4-6 hours between albuterol treatments. Urinating less than normal, over 1 day. Urinating less than 4 times per day. Acting very sleepy and difficult to awaken. Vomiting (throwing up) and not able to eat or drink for 12 hours. 3 or more loose, watery bowel movements in 24 hours (diarrhea). Any new concerning symptoms. * Follow Up Appointment 1:Physician/Dept/Service: Neeru Topete for Referral: hospitalizationCall to Schedule in: 2 weeksLocation: [address] [place] [id number] Number: [phone]: Please call and schedule an appointment within 2 weeks of your hospital Discharge * Follow Up Appointment 2:Physician/Dept/Service: Dr. Pope for Referral: renal stoneScheduledDate/Time: 28-Oct-2022 10:15Location: [address] [place], [place] [address]Kpwnn Number: [phone] [facility] Summary Purpose Family History No Family History Records FoundUnknown Family Member Name Dates Details Family history of diabetes m ellitus: Father(V18.0, Z83.3) Status:Active Unknown Family Member Name Dates Details Family history of diabetes m ellitus: Father(V18.0, Z83.3) Status:Active Unknown Family Member Name Dates Details Family history of diabetes m ellitus: Father(V18.0, Z83.3) Status:Active Advance Directives No Advanced Directives Records FoundNo Advanced Directives Records FoundNo Advanced Directives Records FoundNo Advanced Directives Records FoundNo Advanced Directives Records FoundNo Advanced Directives Records Found Chief Complaint SURGERY F/UStent Removal-Left Renal Stone Reason for Referral Specialty Diagnoses / Procedures Referred By Hamilton t Referred To Contact Radiology Diagnoses Calculus of ureter Procedures US renal complete Hi Rossi MD [facility] [address] [place] [address] Referral ID Status Reason Start Date Expiration Date Visits Requested Visits Authorized [id number] Pending Review Perform Procedure 12/26/2022 06/24/2023 1 1 Additional Source Comments <item><item><item><item> Privacy Markings (unrecogniz ed section and content) Section Author: Kassie Paez PROHIBITION ON REDISCLOSURE OF CONFIDENTIAL INFORMATION This notice accompanies a disclosure of information concerning a client made to you with the consent of such client. Section Author: Kassie Paez PROHIBITION ON REDISCLOSURE OF CONFIDENTIAL INFORMATION This notice accompanies a disclosure of information concerning a client made to you with the consent of such client. Section Author: Kassie Paez PROHIBITION ON REDISCLOSURE OF CONFIDENTIAL INFORMATION This notice accompanies a disclosure of information concerning a client made to you with the consent of such client. Section Author: Kassie Paez PROHIBITION ON REDISCLOSURE OF CONFIDENTIAL INFORMATION This notice accompanies a disclosure of information concerning a client made to you with the consent of such client. Source Comments (unrecognize d section and content) In the event this informatio n is protected by the Federal Confidentiality of Alcohol and Drug Abuse Patient Records regulations: The Federal rules restrict any use of the information to criminally investigate or prosecute any alcohol or drug abuse patient.[facility] Reason for Visit (unrecogniz ed section and content) Reason Comments Other LEFT URETEROSCOPY, L EFT RPG WITH HOLMIUM LASER AND STENT EXCHANGE / [id number] Specialty Diagnoses / Procedures Referred By Hamilton oneill Referred To Contact Radiology Diagnoses Calculus of ureter Procedures US renal complete Hi Rossi MD [facility] [address] [place] [address] Referral ID Status Reason Start Date Expiration Date Visits Requested Visits Authorized [id number] Pending Review Perform Procedure 12/26/2022 06/24/2023 1 1 Care Teams (unrecognized sec tion and content) Heating Repair Technician Relationship Specialty Start Date End Date Keyshawn Sanchez MD [address] [place] [address] PCP - General 10/23/22 Heating Repair Technician Relationship Specialty Start Date End Date Keyshawn Sanchez MD [address] [place] [address] PCP - General 10/23/22 INFORMATION SOURCE (unrecogn ized section and content) DATE CREATED AUTHOR AUTHOR'S ORGANIZ ATION 12/04/2022 [facility] DATE CREATED AUTHOR AUTHOR'S ORGANIZ ATION 12/09/2022 [facility] DATE CREATED AUTHOR AUTHOR'S ORGANIZ ATION 12/13/2022 [facility] DATE CREATED AUTHOR AUTHOR'S ORGANIZ ATION 03/24/2023 [facility] DATE CREATED AUTHOR AUTHOR'S ORGANIZ ATION 03/26/2023 [facility] FOR RECORDS PERTAINING TO PATIENTS WHO ARE OR HAVE BEEN ENROLLED IN A CHEMICAL DEPENDENCY/SUBSTANCEABUSE PROGRAM, SOME INFORMATION MAY BE OMITTED. This clinical summary was aggregated from multiple sources. Caution should be exercised in using it in the provision of clinical care. This summary normalizes information from multiple sources, and as a consequence, information in this document may materially change the coding, format and clinical context of patient data. In addition, data may be omitted in some cases. CLINICAL DECISIONS SHOULD BE BASED ON THE PRIMARY CLINICAL RECORDS. [facility] [employer] [facility]. provides no warranty or guarantee of the accuracy or completeness of information in this document.
[2023-04-22 13:42] LABS: Vitamin B12 960 pg/mL (211-911)
== END | disposition home or self-care (01) ==
LOC: PAVLAB 11:07
PROVIDERS: PCP Internal Medicine; Referring Provider Obstetrics & Gynecology; Visit Provider Obstetrics & Gynecology
DX: D50.9 Iron deficiency anemia, unspecified (principal)
CPT/HCPCS: 36415; 82607; 82728; 83550

== ENCOUNTER → 2023-04-25 | Outpatient (CLI) | payer OTHER, SELFPAY ==
--- NOTE | 2023-04-25 07:58 | CT_ITS ---
STUDY: CT ABDOMEN AND PELVIS WITHOUT CONTRAST REASON FOR EXAM: Female, 47 years old. Bilateral kidney stones. RADIATION DOSAGE (If Supplied By Facility): CTDIvol = ( 10.09 ) mGy, DLP = ( 509.70 ) mGycm TECHNIQUE: Transaxial images were obtained from the dome of the diaphragm to the symphysis pubis without oral contrast, and without intravenous contrast. Sagittal and coronal images were reconstructed. Individualized dose optimization techniques were used for this CT. COMPARISON: None. FINDINGS: The visualized lung bases are unremarkable. Coronary artery calcification. There is a 6.2 mm cyst in the medial left lobe of the liver. A similar-appearing hypodensity measuring 7.7 mm also seen in the left lobe as well as a smaller one in the anterior right lobe. Normal gallbladder and extrahepatic biliary system. Normal spleen. Normal pancreas. Normal bilateral adrenal glands. Normal right kidney. There is a 3.8 mm calculus in the upper pole calyx of the left kidney. This also evidence of a 2.8 mm calculus in the posterior mid pole calyx of the left kidney. A 1.5 cm 1 cm calculus in the left hemipelvis. There is a 1 cm calculus in the left proximal ureter. Left renal pelvis causing mild hydronephrosis. There is a small hiatal hernia. Normal small intestine. Normal colon. The appendix is visualized and appears normal. Normal abdominal aorta. Normal inferior vena cava. Normal retroperitoneum. Normal urinary bladder. Enlarged fibroid uterus. Normal abdominal wall. Normal osseous structures. CT/Abdomen/Pelvis without Cont IMPRESSION: Multiple calculi in the left kidney as described. 1.5 cm calculus in the left renal pelvis and 1 cm in the proximal left ureter with mild left hydronephrosis. Nonobstructing right intrarenal calculus. Small hepatic cysts. Electronically Signed: Jamal Frederick MD at 10:32 EST ,
--- OUTSIDE RECORDS SUMMARY | 2023-04-25 08:20 | XMS RPT_ITS | CCD ---
Author Name Unknown Address [address] [place] [address] Organization [facility] Care Team Providers Care Quality Improvement Coordinator Name Role Phone Free, Text Entry Unavailable [...] (4 sources) meloxicam Drug Allergy Seizure, Seizures [facility] (5 sources) meloxicam; Translations: [MELOXICAM] Drug Allergy 1 Other: See Comments, Unknown [facility] (2 sources) Bee Venom Protein (Honey Bee); Translations: [BEE VENOM PROTEIN (HONEY BEE)] Drug Allergy 2 Anaphylaxis [facility] (1 source) Bee/Wasp/Ant venom Anaphylaxis [facility] (2 sources) ALLERGIES NOT ON FILE; Translations: [ALLERGIES NOT ON FILE] Propensity to adverse reactions (disorder) [facility] 2 Repository Medications Current Medications Medication Drug Class(es) Dates Sig (Normalized) Sig (Original) Ascorbic Acid (2 sources) Vitamin C take 1 capsule by mo [facility] once daily Immune Essentials 333.33 mg oral [...] 31.25 kg/m2 Keyshawn Garza Daniel Work Phone: PR-Sppevjr-Ustydzj Work Phone: 12-09-2022 09:53-0400 Body surface area Derived from formula 1.7 m2 Keyshawn Garza Daniel Work Phone: JT-Umxmfdp-Kfbrdse Work Phone: 12-09-2022 09:53-0400 Body weight 72.58 kg Keyshawn Garza Daniel Work Phone: LZ-Wxjxpvm-Eexbqqa Work Phone: 11-26-2022 12:41-0400 Body height 152.4 cm Hi Bustillo MD MPH Work Phone: [facility] 11-26-2022 12:41-0400 Body mass index (BMI) [Ratio] 31.82 kg/m2 Hi Bustillo MD MPH Work Phone: [facility] 11-26-2022 12:41-0400 Body weight 73.9 kg Hi Bustillo MD MPH Work Phone: [facility] 11-12-2022 13:39-0400 Diastolic blood pressure 73 mm[Hg] Keyshawn Sanchez Other Phone: [facility] 11-12-2022 13:39-0400 Heart rate 87 /min Keyshawn Sanchez Other Phone: [facility] 11-12-2022 13:39-0400 Respiratory rate 16 /min Keyshawn Sanchez Other Phone: [facility] 11-12-2022 13:39-0400 SaO2% (BldA) [Mass fraction] 97 % Keyshawn Sanchez Other Phone: [facility] 11-12-2022 13:39-0400 Systolic blood pressure 141 mm[Hg] Keyshawn Sanchez Other Phone: [facility] 11-12-2022 10:20-0400 Body height 152.4 cm Keyshawn Sanchez Other Phone: [facility] 11-12-2022 10:20-0400 Body temperature 96.8 [degF] Keyshawn Sanchez Other Phone: [facility] 11-12-2022 10:20-0400 Body weight 72.3 kg Keyshawn Sanchez Other Phone: [facility] 10-28-2022 10:37-0400 Body height 152.4 cm Keyshawn Sanchez Work Phone: QJ-Piunase-Nvzovzx Work Phone: 10-28-2022 10:37-0400 Body mass index (BMI) [Ratio] 31.27 kg/m2 Keyshawn Sanchez Work Phone: OC-Shbenrd-Eecgskl Work Phone: 10-28-2022 10:37-0400 Body surface area Derived from formula 1.7 m2 Keyshawn Sanchez Work Phone: WN-Tkptmtl-Oetxmlg Work Phone: 10-28-2022 10:37-0400 Body weight 72.63 kg Keyshawn Sanchez Work Phone: ID-Cpucpvw-Msykwep Work Phone: 10-28-2022 10:37-0400 Diastolic blood pressure 90 mm[Hg] Keyshawn Sanchez Work Phone: JY-Yhioiga-Ptitkpm Work Phone: 10-28-2022 10:37-0400 Heart rate 78 /min Keyshawn Sanchez Work Phone: BC-Caedfxy-Cspkkfc Work Phone: 10-28-2022 10:37-0400 Systolic blood pressure 159 mm[Hg] Keyshawn Sanchez Work Phone: WN-Vnxymey-Wuowmyw Work Phone: 10-26-2022 09:50-0400 Body temperature 98.96 [degF] Keyshawn Sanchez Other Phone: [facility] 10-26-2022 09:50-0400 Diastolic blood pressure 94 mm[Hg] Keyshawn Sanchez Other Phone: [facility] 10-26-2022 09:50-0400 Heart rate 99 /min Keyshawn Sanchez Other Phone: [facility] 10-26-2022 09:50-0400 Respiratory rate 16 /min Keyshawn Sanchez Other Phone: [facility] 10-26-2022 09:50-0400 SaO2% (BldA) [Mass fraction] 92 % Keyshawn Sanchez Other Phone: [facility] 10-26-2022 09:50-0400 Systolic blood pressure 141 mm[Hg] Keyshawn Sanchez Other Phone: [facility] 05-28-2021 15:20-0500 Diastolic blood pressure 79 mm[Hg] Text Entry Free [facility] 05-28-2021 15:20-0500 Heart rate 80 /min Text Entry Free [facility] 05-28-2021 15:20-0500 Respiratory rate 16 /min Text Entry Free [facility] 05-28-2021 15:20-0500 SaO2% (BldA) [Mass fraction] 98 % Text Entry Free [facility] 05-28-2021 15:20-0500 Systolic blood pressure 142 mm[Hg] Text Entry Free [facility] 05-28-2021 12:42-0500 Body height 152.4 cm Text Entry Free [facility] 05-28-2021 12:42-0500 Body temperature 97.34 [degF] Text Entry Free [facility] 05-28-2021 12:42-0500 Body weight 68.2 kg Text Entry Free [facility] 03-22-2021 13:0500 Body height 152.4 cm Text Entry Free [facility] 03-22-2021 13:0500 Body temperature 98.06 [degF] Text Entry Free [facility] 03-22-2021 13:-0500 Diastolic blood pressure 95 mm[Hg] Text Entry Free [facility] 03-22-2021 13:-0500 Heart rate 98 /min Text Entry Free [facility] 03-22-2021 13:0500 Respiratory rate 16 /min Text Entry Free [facility] 03-22-2021 13:0500 SaO2% (BldA) [Mass fraction] 96 % Text Entry Free [facility] 03-22-2021 13:0500 Systolic blood pressure 138 mm[Hg] Text Entry Free [facility] Encounters Encounter Date Encounter Type Care Provider Facility Start: 03-24-2023 End: 03-24-2023 ambulatory [facility] Start: 03-17-2023 End: 03-18-2023 ambulatory [facility] Start: 03-17-2023 End: 03-17-2023 Subsequent hospital visit by physician Skinny Snow 1 [facility] Procedures Date Procedure Procedure Detail Performing Clinician [...] Glaucoma suspect of both eyes Expected: 07/14/2024 [facility] Work Phone: Payers Date Payer Category Payer Unknown 2022 [employer] others) [id number] 2022 [employer] ( [employer] others[employer] [id number] 2022-Present [address] [place] [address] [id number] 2021 [employer] ( and others) [id number] 1973 Unknown [id number] [id number] 1973 Unknown [id number] 1069 1973 Unknown [id number] 1069 1973 Unknown [id number] 356 1973 Unknown [id number] 356 1973 Unknown [id number] 1243 1973 Unknown [id number] 1244 Social History Date Type Detail Facility [facility] Tobacco smoking consumption unknown [facility] Start: 05-10-2021 Tobacco smoking stat us NHIS Never smoked tobacco [facility] Start: 05-10-2021 Tobacco use and exposure Smokeless tobacco non-user [facility] Start: 07-25-2022 Alcohol intake Current drinke r of alcohol (finding) [facility] Start: 05-10-2021 Alcohol Comment social- wine [facility] Start: 1975 Sex Assigned At Not on file [facility] Never smoked cigarettes Never smoked ciga rettes AL-Yqtzsbr-Uaorgag Work Phone: Gender identity Not on file [facility] [employer] [facility] Work Phone: Start: 03-07-2023 End: 03-17-2023 Exposure to SARS-CoV-2 (event) Not sure [facility] Functional Status Date Assessment Result Facility Functional observable [facility] Mental Status Date Assessment Result Facility 10-24-2022 Cognitive functi ons [id number] [facility] Clinical Notes 07-25-2022 to 11-29-2022 Op Note [...] left kidney, N20.0 Surgeon: Hi Rossi Resident/Fellow/Other Parts Room Clerk: None of these were associated with this [...] the standard surgical fashion. First, a 21 Japanese cystoscope was inserted into the bladder, the [...] Last Updated: 29-Nov-2022 14:17 by Hi Rossi) [facility] 11-29-2022 Note History of Present I [...] Surgical Update < 30 days 29-Nov-2022 07:44 [facility] 11-29-2022 Miscellaneous Notes PROCEDURE DETAILS Preoperative Diagnosis: Calculus of left kidney, N20.0 Postoperative Diagnosis: Calculus of left kidney, N20.0 Surgeon: Hi Rossi Resident/Fellow/Other Parts Room Clerk: None of these were associated with this [...] the standard surgical fashion. First, a 21 Japanese cystoscope was inserted into the bladder, the [...] by Hi Rossi) documented in this encounter [facility] Work Phone: 11-29-2022 Note Formatting of this n ote is different from the original. PROCEDURE DETAILS Preoperative Diagnosis: Calculus of left kidney, N20.0 Postoperative Diagnosis: Calculus of left kidney, N20.0 Surgeon: Hi Rossi Resident/Fellow/Other Parts Room Clerk: None of these were associated with this [...] the standard surgical fashion. First, a 21 Japanese cystoscope was inserted into the bladder, the [...] Updated: 29-Nov-2022 14:17 by Hi Rossi) T [facility] Work Phone: 11-29-2022 Note History & Physical [...] Last Updated: 29-Nov-2022 07:44 by Hi Rossi) [facility] 11-29-2022 History and physical note History [...] Update < 30 days 29-Nov-2022 07:44 T [facility] Work Phone: 11-29-2022 History and physical note [...] by Hi Rossi) documented in this encounter [facility] Work Phone: 11-29-2022 History and physical note [...] Last Updated: 29-Nov-2022 07:44 by Hi Rossi) [facility] Work Phone: 10-25-2022 Note PROCEDURE DETAILS Preoperative Diagnosis: Calculus of left kidney, N20.0 Postoperative Diagnosis: Calculus of left kidney, N20.0 Surgeon: Hi Rossi Resident/Fellow/Other Parts Room Clerk: None of these were associated with this [...] the standard surgical fashion. First, a 21 Japanese cystoscope was inserted into the bladder, and [...] Last Updated: 25-Oct-2022 08:01 by Hi Rossi) [facility] 10-24-2022 Note Send Summary: Discharge Summary [...] at Discharge: Home Vital Signs: T PRBPMAPSpO2 Value37.79742599/368328% Date/Time10/26 7:5010/26 7:5010/26 7:5010/26 7:5010/25 15:15 7:50 Range(36.2C - 37.6C ) (91 - 122 ) (16 - 20 ) (121 - 149 )/ (73 - 94 ) (93 - 97 ) (90% - 96% ) Highest temp of 37.6 C was recorded at 10/25 12:24 Date: Weight/Scale Type:Height: 23-Oct-2022 21:2761.1 kg / ocm570.4 cm Physical Exam: General Appearance: AAO x [...] motor deficits Hospital Course: Patient presented to [facility] ED on October 24 for left-sided flank [...] needed for bladder spasms E scribed to [facility] pharmacy in [place]. Call 911 or go to nearest ED [...] discharge: Full Code Electronic Signatures: Tanya Haas ([facility]) (Signed 26-Oct-2022 08:38) Authored: Summary Content, Ongoing Care, Note Completion Princess Butterfield ([facility]) (Signed 24-Oct-2022 15:55) Authored: Send Summary, Summary Content, Ongoing Care, DNR Status Last Updated: 26-Oct-2022 08:38 by Tanya Haas ([facility]) [facility] 10-24-2022 Note History & Physical R [...] walton risks related to the risk of aey COVID-19 and if they contract COVID-19 what the risks are. Electronic Signatures: Hi Rossi) (Signed 24-Oct-2022 07:29) Authored: History & Physical Reviewed, ERAS, Consent, Note Completion Last Updated: 24-Oct-2022 07:29 by Hi Rossi) References: 1. Data Referenced From Patient Profile - Adult v2 23-Oct-2022 21:27 [facility] 10-24-2022 Note History of Present I [...] a day. Objective: Objective Information: T PRBPMAPSpO2 Value36.05452375/9293% Date/Time10/23 17:487 21: 21: 21: 21:25 Range(36.3C [...] the rest of (more content not included)... [facility] 07-25-2022 Note HNO ID: [id number] Author: Deborah Pavon II, OD Service: ? Author Type: [employer]IGH [employer] Type: Progress Notes Filed: 07/25/2022 9:57 AM [...] its relevant components. Deborah Pavon II, OD [facility] 07-25-2022 Instructions Deborah Pavon II, OD - [...] Pavon II, OD documented in this encounter [facility] 07-25-2022 History of Presen t illness Narrative [...] Pavon II, ELAN documented in this encounter [facility] documented [facility] [place]* Psychological: Appropriate mood and behaviorNeurological: alert [...] awake/alert/oriented x3, no distress, alert and cooperative [facility] Diagnosis Calculus of kidney Pain, unspecified documented in this encounter [facility] Work Phone: Evaluation note* Diagnosis Calculus of ureter documented in this encounter [facility] Work Phone: History of Present illness NarrativePatient is here today for kidney stones..S/P LEFT URETEROSCOPY w/ STENT...Pt states she has had no issues with the stent...some pressure with urination..No increased urgency or frequency...No dysuria..pt states she does have blood but she did start her period...Nocturia 3x..CV-Jytquxx-Sebvgkm Work Phone: Hospital Discharge instructions* Activity:activity as [...] Referral: hospitalizationCall to Schedule in: 2 weeksLocation: [address] [place] [address]Abnbz Number: [phone]: Please call and schedule an appointment within 2 weeks of your hospital Discharge * Follow Up Appointment 2:Physician/Dept/Service: Dr. Pope for Referral: renal stoneScheduledDate/Time: 28-Oct-2022 10:15Location: [address] [place], [place] [address]Iwrep Number: [phone] [facility] Summary Purpose Family History No Family History [...] Procedures US renal complete Hi Rossi MD [facility] [address] [place] [address] Referral ID Status Reason Start Date Expiration Date Visits Requested Visits Authorized [id number] Pending Review Perform Procedure 12/26/2022 06/24/2023 1 [...] or prosecute any alcohol or drug abuse patient.[facility] Reason for Visit (unrecogniz ed section and content) Reason Comments Other LEFT URETEROSCOPY, L EFT RPG WITH HOLMIUM LASER AND STENT EXCHANGE / [id number] Specialty Diagnoses / Procedures Referred By Hamilton oneill Referred To Contact Radiology Diagnoses Calculus of ureter Procedures US renal complete Hi Rossi MD MPH [address] [place] [address] Referral ID Status Reason Start Date Expiration Date Visits Requested Visits Authorized [id number] Pending Review Perform Procedure 12/26/2022 06/24/2023 1 1 Care Teams (unrecognized sec tion and content) Quality Improvement Coordinator Relationship Specialty Start Date End Date Keyshawn Sanchez MD [address] [place] [address] PCP - General 10/23/22 Quality Improvement Coordinator Relationship Specialty Start Date End Date Keyshawn Sanchez MD [address] [place] [address] PCP - General 10/23/22 INFORMATION SOURCE (unrecogn ized section and content) DATE CREATED AUTHOR AUTHOR'S ORGANIZ ATION 12/04/[address] [facility] DATE CREATED AUTHOR AUTHOR'S ORGANIZ ATION 12/09/2022 [employer] DATE CREATED AUTHOR AUTHOR'S ORGANIZ ATION 12/13/2022 [facility] [place] DATE CREATED AUTHOR AUTHOR'S ORGANIZ ATION 03/24/2023 [facility] DATE CREATED AUTHOR AUTHOR'S ORGANIZ ATION 03/26/2023 [facility] FOR RECORDS PERTAINING TO PATIENTS WHO ARE [...] BE BASED ON THE PRIMARY CLINICAL RECORDS. [facility]. provides no warranty or guarantee of the accuracy or completeness of information in this document.
== END | disposition home or self-care (01) ==
LOC: CT 07:56
PROVIDERS: PCP Internal Medicine; Referring Provider Urology; Visit Provider Urology
DX: N20.0 Calculus of kidney (principal)
CPT/HCPCS: 74176

== ENCOUNTER 2023-05-12 10:44 | Emergency (ER) | payer OTHER, SELFPAY ==
[2023-05-12 10:44] VITALS: BP 153/96; PULSE 79; RESP 14; TEMP 36.8; O2SAT 99; BMI 31.3
--- NOTE | 2023-05-12 11:23 | EDS_ITS ---
HPI <IGNACIO Mosley - Last Filed: 05/12/23 13:14> History of Present Illness Chief Complaint: Flank Pain Narrative Narrative: Patient is a 47-year-old female with history of chronic pain, obstructing kidney stones who presents to the emergency department for ongoing pain to the left flank. Patient is a patient of Dr. Nash. Patient has a known 1 cm left- sided obstructing uropathy. Patient was having increased pain last evening, difficulty sleeping and is here for evaluation. She did talk to the office of her urologist, she is on vacation so she is here for evaluation. She denies any fever or chills. Patient is also on her menstrual cycle at this time. PFSH <IGNACIO Mosley - Last Filed: 05/12/23 13:14> [facility] Medical History Anemia Anxiety Bilateral bunions Easy bruising Fracture of medial malleolus, right, closed History of edema History of PCOS History of renal disease Hypertension Kidney stone Loss of hearing Low iron Non-smoker Restless legs Right ankle pain Syncope Wears contact lenses Wears glasses Home Medications [id number] 75 mg tablet (Immune Support Complex) 2 tab PO DAILY 03/21/21 [History Last Taken Unknown] cholecalciferol (vitamin D3) 125 mcg (5,000 unit) capsule 125 mcg PO DAILY 03/21/21 [History Last Taken Unknown] cranberry extract 250 mg capsule 250 mg PO DAILY 03/21/21 [History Last Taken Unknown] fluticasone propionate 50 mcg/actuation nasal spray,suspension 1 spray intranasal DAILY 03/21/21 [History Last Taken Unknown] vitamin B complex (B Complex-Vitamin B12 tablet) 1 tab PO DAILY 03/21/21 [History Last Taken Unknown] docusate sodium 100 mg capsule (Colace) 100 mg PO BID #180 caps 03/28/21 [Rx Last Taken Unknown] duloxetine 30 mg capsule,delayed release (Cymbalta) 30 mg PO BID #180 caps 05/09/22 [Rx Last Taken Unknown] ferrous sulfate 325 mg (65 mg iron) tablet (Feosol) 325 mg PO DAILY 05/22/22 [History Last Taken Unknown] acetaminophen 325 mg capsule (Tylenol) 325 mg PO ONCE PRN pain 11/28/22 [History Last Taken Unknown] cephalexin 500 mg capsule 500 mg PO TID 7 days #21 caps 05/12/23 [Rx Last Taken Unknown] ondansetron 4 mg disintegrating tablet 4 mg PO Q8H PRN PRN Nausea #10 tabs 05/12/23 [Rx Last Taken Unknown] oxycodone-acetaminophen 5 mg-325 mg tablet (Percocet) 1 tab PO Q8H PRN pain 3 days #10 tabs 05/12/23 [Rx Last Taken Unknown] Allergy/AdvReac Type Severity Reaction Status Date / Time bee venom protein (honey bee) Allergy Severe Anaphylaxis Verified 05/12/23 10:46 meloxicam [From Mobic] Allergy Mild unknown Verified 05/12/23 10:46 Family History Other CVA (cerebral vascular accident) Cancer Diabetes Heart disease Myocardial infarction Surgical History History of bunionectomy of both great toes History of renal stent Hx of dilation and curettage S/P appendectomy Social History household members: spouse and children number of children: 4 current occupational status: employed 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 Smoking Status: Never smoker alcohol intake: current alcohol intake frequency: a few times a month Alcohol type: wine substance use type: does not use seatbelt use: always do you feel safe at home: Yes additional social history: - Kody SABINE <IGNACIO Mosley - Last Filed: 05/12/23 13:14> SABINE REGALADO Narrative Constitutional: Negative for fever, chills, weight loss, weakness Eyes: Negative for vision loss, vision change, double vision ENT: Negative for any sore throat, ear pain, congestion Cardiovascular: Negative for any chest pain, tightness, palpitations Respiratory: Negative for any cough, sputum production, hemoptysis, dyspnea, dyspnea on exertion, orthopnea Gastrointestinal: Negative for any abdominal pain, nausea, vomiting, diarrhea, constipation, blood in stool, blood in vomit : Negative for any urinary frequency, dysuria, retention. Positive for hematuria Muscle skeletal: Negative for any myalgias, arthralgias, neck pain. Positive for left-sided back pain, slight right-sided back pain Neurological: Negative for any headache, syncope, paresthesias, dizziness Skin: Negative for any rashes, lumps, itching, abrasions, lacerations Psychiatric: Negative for any depression, anxiety, stress, suicidal ideation, homicidal ideation Hematologic: Negative for any easy bruising, excessive bruising, easy bleeding Allergies: Negative for any eczema, hives, rash EXAM <IGNACIO Mosley - Last Filed: 05/12/23 13:14> Physical Exam Narrative Exam Narrative: Vital signs reviewed. HEET: Head normocephalic atraumatic, TMs clear bilaterally. Posterior pharynx is clear, moist mucous membranes. Nares clear bilaterally. Neck: Supple with no lymphadenopathy or tenderness. No signs of meningismus. Cardiac: Regular rate and rhythm no murmurs gallops or rubs, equal peripheral pulses bilaterally. Respiratory: Lungs clear to auscultation bilaterally. No chest tenderness. Abdomen: Soft, nontender, nondistended. No abdominal bruit or pulsatile masses. No hepatosplenomegaly Extremities: No peripheral edema, no signs of gross trauma or deformity. Active full range of motion of all extremities. Neuro: Cranial nerves II through XII intact, no focal neurological deficits. Skin: Clean dry and intact with no rash, purpura, petechiae, vesicles or pustules. Backs/flank: CVA tenderness to the left side, no midline spinal tenderness, no deformity. Psych: Normal mood and affect. No SI, HI or acute psychosis. Const Vital Signs: 05/12/23 10:44 Temperature 98.2 F Temperature Source Temporal Pulse Rate 79 Respiratory Rate 14 Blood Pressure 153/96 H Blood Pressure Mean 115 Pulse Ox 99 Oxygen Delivery Method Room Air Positive well nourished and well developed General Appearance ED: well developed <Dr. Tawanda Payne DO - Last Filed: 05/12/23 14:50> Physical Exam Const Vital Signs: 05/12/23 10:44 Temperature 98.2 F Temperature Source Temporal Pulse Rate 79 Respiratory Rate 14 Blood Pressure 153/96 H Blood Pressure Mean 115 Pulse Ox 99 Oxygen Delivery Method Room Air MDM <IGNACIO Mosley - Last Filed: 05/12/23 13:14> MDM Lab Data Labs: Laboratory Results - last 24 hr 05/12/23 05/12/23 11:05 11:22 WBC 8.4 RBC 4.54 Hgb 8.5 L Hct 31.5 L MCV 69.4 L MCH 18.7 L MCHC 27.0 L RDW Std Deviation 54.4 H RDW Coeff of Wilmer 23.9 H Plt Count 518 H MPV 10.0 Immature Gran % (Auto) 0.600 Neut % (Auto) 50.6 Lymph % (Auto) 39.0 Dorado % (Auto) 6.5 Eos % (Auto) 2.5 Baso % (Auto) 0.8 Absolute Neuts (auto) 4.3 Absolute Lymphs (auto) 3.28 Nucleated RBC % 0 Anisocytosis 1+ Sodium 137 Potassium 3.7 Chloride 110 H Carbon Dioxide 25.0 Anion Gap 2 L BUN 10 Creatinine 0.66 Estim Creat Clear Calc 91.84 Est GFR (MDRD) Af Amer 122 Est GFR (MDRD) Non-Af 101 BUN/Creatinine Ratio 15.2 Glucose 100 Calcium 8.5 Urine Color Red Urine Clarity Sl. Cloudy Urine pH 7.0 Ur Specific Julian 1.010 Urine Protein 100 H Urine Glucose (UA) Normal Urine Ketones Negative Urine Occult Blood 250 H Urine Nitrite Negative Urine Bilirubin Negative Urine Urobilinogen Normal Ur Leukocyte Esterase 500 H Urine RBC 25-50 SEEN Urine WBC 25-50 SEEN Ur Squamous Epith Cells 0-5 SEEN Urine Bacteria 0 SEEN Urine Mucus 0 SEEN Radiography Diagnostic Testing: Clinical Impression(s) from Imaging Studies Abdomen/Pelvis CT 05/12/23 11:37 IMPRESSION: Stable bilateral intrarenal calculi. Stable mild left hydronephrosis. The previously seen calculus in the proximal portion of the left ureter is not seen at this time. Electronically Signed: Jamal Frederick MD at 12:18 EST , Treatment and Re-Evaluation :: Patient appears generally well, patient appears nontoxic, vital signs are stable. Patient presents the emergency department with ongoing left-sided flank pain. This began last evening. Patient has been suffering with a 1 cm obstructing uropathy in the left kidney, she does see Dr. Nash, who is out of town. Patient's differential diagnose includes UTI, pyelonephritis, obstructing uropathy. Patient will receive a CT scan of the abdomen pelvis without contrast concerning for any obstructing uropathy. All radiologic examinations were read, reviewed by the emergency department attending. From these reads, a plan of care will be put in place. Basic laboratory values looking at CBC, as well as chemistries looking at renal function. Urinalysis will be completed looking for UTI. Patient's laboratory values showed normal CBC, patient's chemistries were unremarkable. Urinalysis did show 500 leukocytes, 25-50 white blood cells, this will be sent for culture, patient's CT scan of the abdomen pelvis showed stable bilateral intrarenal calculi, stable mild left hydronephrosis. The previously seen calculus in the proximal portion of the left utero is not seen at this time. At this time, I do not believe the patient needs to be admitted or transferred for infected stone. Patient will be treated with Keflex, the patient will be provided pain medicine, nausea medicine secondary to the history of kidney stones, the mild hydronephrosis. She will need to follow-up with the urologist this upcoming week when the urologist gets back in town. All questions were answered, all patient is stable for discharge. Was given return precaution. <Dr. Tawanda Payne, DO - Last Filed: 05/12/23 14:50> [facility] Lab Data Attestation: I reviewed the patient's lab results. Labs: Laboratory Results - last 24 hr 05/12/23 05/12/23 11:05 11:22 WBC 8.4 RBC 4.54 Hgb 8.5 L Hct 31.5 L MCV 69.4 L MCH 18.7 L MCHC 27.0 L RDW Std Deviation 54.4 H RDW Coeff of Wilmer 23.9 H Plt Count 518 H MPV 10.0 Immature Gran % (Auto) 0.600 Neut % (Auto) 50.6 Lymph % (Auto) 39.0 Dorado % (Auto) 6.5 Eos % (Auto) 2.5 Baso % (Auto) 0.8 Absolute Neuts (auto) 4.3 Absolute Lymphs (auto) 3.28 Nucleated RBC % 0 Anisocytosis 1+ Sodium 137 Potassium 3.7 Chloride 110 H Carbon Dioxide 25.0 Anion Gap 2 L BUN 10 Creatinine 0.66 Estim Creat Clear Calc 91.84 Est GFR (MDRD) Af Amer 122 Est GFR (MDRD) Non-Af 101 BUN/Creatinine Ratio 15.2 Glucose 100 Calcium 8.5 Urine Color Red Urine Clarity Sl. Cloudy Urine pH 7.0 Ur Specific Julian 1.010 Urine Protein 100 H Urine Glucose (UA) Normal Urine Ketones Negative Urine Occult Blood 250 H Urine Nitrite Negative Urine Bilirubin Negative Urine Urobilinogen Normal Ur Leukocyte Esterase 500 H Urine RBC 25-50 SEEN Urine WBC 25-50 SEEN Ur Squamous Epith Cells 0-5 SEEN Urine Bacteria 0 SEEN Urine Mucus 0 SEEN Radiography Diagnostic Testing: Clinical Impression(s) from Imaging Studies Abdomen/Pelvis CT 05/12/23 11:37 IMPRESSION: Stable bilateral intrarenal calculi. Stable mild left hydronephrosis. The previously seen calculus in the proximal portion of the left ureter is not seen at this time. Electronically Signed: Jamal Frederick MD at 12:18 EST , Treatment and Re-Evaluation :: Patient appears generally well, patient appears nontoxic, vital signs are stable. Patient presents the emergency department with ongoing left-sided flank pain. This began last evening. Patient has been suffering with a 1 cm obstructing uropathy in the left kidney, she does see Dr. Nash, who is out of town. Patient's differential diagnose includes UTI, pyelonephritis, obstructing uropathy. Patient will receive a CT scan of the abdomen pelvis without contrast concerning for any obstructing uropathy. All radiologic examinations were read, reviewed by the emergency department attending. From these reads, a plan of care will be put in place. Basic laboratory values looking at CBC, as well as chemistries looking at renal function. Urinalysis will be completed looking for UTI. Patient's laboratory values showed normal CBC, patient's chemistries were unremarkable. Urinalysis did show 500 leukocytes, 25-50 white blood cells, this will be sent for culture, patient's CT scan of the abdomen pelvis showed stable bilateral intrarenal calculi, stable mild left hydronephrosis. The previously seen calculus in the proximal portion of the left utero is not seen at this time. At this time, I do not believe the patient needs to be admitted or transferred for infected stone. Patient will be treated with Keflex, the patient will be provided pain medicine, nausea medicine secondary to the history of kidney stones, the mild hydronephrosis. She will need to follow-up with the urologist this upcoming week when the urologist gets back in town. All questions were answered, all patient is stable for discharge. Was given return precaution. 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 I perform my own [id number] evaluation. I agree with the plan of work-up. Increasing left flank pain since yesterday. History of kidney stones. Had a CT scan 17 days ago by her urologist. Reported pending ureteral stent to be scheduled. No urinary symptoms. Patient evaluated for medication treatment nontoxic feeling a lot more comfortable. Review of her CT scan from 17 days ago had 1 cm obstructive stone stone. CT scan today however noted passed stone with no obstruction. Labs are stable urine with signs of infection. Culture sent. She started on antibiotics. Prescription for symptom control with outpatient follo w-up with her urologist. Return precautions. Discharge Plan Triage Chief Complaint: Flank Pain ED Midlevel Provider: Hemal Brewer ED Provider: Tawanda Payne Dx/Rx/DC Orders Clinical Impression: UTI (urinary tract infection), Hydronephrosis, Back pain Instructions: Anatomy of the Female Urinary Tract, UTIs Understanding Prescriptions: New cephalexin 500 mg capsule 500 mg PO TID 7 Days Qty: 21 0RF oxycodone-acetaminophen [Percocet] 5-325 mg tablet 1 tab PO Q8H PRN (Reason: pain) 3 Days Qty: 10 0RF ondansetron 4 mg tablet,disintegrating 4 mg PO Q8H PRN PRN (Reason: Nausea) Qty: 10 0RF No Action docusate sodium [Colace] 100 mg capsule 100 mg PO BID Qty: 180 3RF vitamin B complex [B Complex-Vitamin B12] Tablet 1 tab PO DAILY cholecalciferol (vitamin D3) 125 mcg (5,000 unit) capsule 125 mcg PO DAILY cranberry extract 250 mg capsule 250 mg PO DAILY Rx Instructions: administer with a meal Immune Support Complex 75 mg tablet 2 tab PO DAILY fluticasone propionate 50 mcg/actuation spray,suspension 1 spray intranasal DAILY Rx Instructions: administer into each nostril acetaminophen [Tylenol] 325 mg capsule 325 mg PO ONCE PRN (Reason: pain) duloxetine [Cymbalta] 30 mg capsule,delayed release(DR/EC) 30 mg PO BID Qty: 180 3RF ferrous sulfate [Feosol] 325 mg (65 mg iron) tablet 325 mg PO DAILY Rx Instructions: may take up to 2 daily as tolerated Primary Care Provider: Dhara Johns Referrals: Mable Nash MD [Med Staff - Active Staff] - Dhara Johns MD [Primary Care Provider] - Disposition Disposition: Home, Self Care Discharge Date/Time: 05/12/23 13:31
[2023-05-12 11:33] LABS: Bacteria 0 SEEN /hpf (None Seen); Mucous, Urine 0 SEEN /hpf (<or=2+)
[2023-05-12] MEDS: 0.9% Normal Saline (1000mL) 1,000 ML 1000 ML IV (11:33)
[2023-05-12] MEDS: Ketorolac 15 MG/ML Vial IV (11:34)
[2023-05-12 11:36] LABS: Color, Urine Red (Yellow); Glucose, Dipstick Normal (Normal); Ketone-Dipstick Negative (Negative); Leukocyte Esterase-Dipstick 500 /ul (Negative); Nitrite-Dipstick Negative (Negative); Occult Blood-Urine 250 /ul (Negative); Protein-Dipstick 100 mg/dl (Negative); Urine Bilirubin Dipstick Negative (Negative); Urine Clarity Sl. Cloudy (Clear); Urine Urobilinogen Normal (Normal)
[2023-05-12 11:37] LABS: Absolute Lymphocyte Count 3.28 X10^3/uL (0.83-4.51); Absolute Neutrophil Count 4.3 X10^3/uL (2.0-7.7); Basophil# 0.07 X10^3/uL; Basophil% 0.8 % (0-1); Eosinophil# 0.21 X10^3/uL; Eosinophils% 2.5 % (0-5); Hematocrit 31.5 % (37-47); Hemoglobin 8.5 g/dL (12.0-15.0); Lymphocyte # 3.28 X10^3/ul (0.83-4.51); Mean Corpuscular Hgb 18.7 pg (27.0-32.0); Mean Corpuscular Volume 69.4 fL (81-99); Monocyte# 0.55 X10^3/uL; Monocyte% 6.5 % (0-10); NRBC Flagged by Analyzer 0 % (0-5); Neutrophil # 4.26 X10^3/uL (2.7-7.7); Neutrophil % 50.6 % (47-70); POSITIVE MORPHOLOGY YES; Platelet Count 518 K/mm3 (150-450); RBC Distribution Width CV 23.9 % (11.6-14.6); RBC Distribution Width SD 54.4 fl (35.1-43.9); Red Blood Count 4.54 M/mm3 (4.2-5.4); White Blood Count 8.4 K/mm3 (4.4-11.0)
--- NOTE | 2023-05-12 11:37 | CT_ITS ---
STUDY: CT ABDOMEN AND PELVIS WITHOUT CONTRAST REASON FOR EXAM: Female, 47 years old. Abdominal pain. History of kidney stones. Prior appendectomy. RADIATION DOSAGE (If Supplied By Facility): CTDIvol = ( 10.16 ) mGy, DLP = ( 556.07 ) mGycm TECHNIQUE: Transaxial images were obtained from the dome of the diaphragm to the symphysis pubis without oral contrast, and without intravenous contrast. Sagittal and coronal images were reconstructed. Individualized dose optimization techniques were used for this CT. COMPARISON: Comparison is made with prior study dated April 25, 2023. FINDINGS: Tiny calcified granulomas in the peripheral aspect of the left lower lobe. The visualized portions of the heart are within normal limits. Stable cysts in both lobes of the liver. Normal gallbladder and extrahepatic biliary system. Normal spleen. Normal pancreas. Normal bilateral adrenal glands. There is a 5.5 mm calculus in the lower pole calyx of the right kidney. Stable 3.8 mm nonobstructive calculus in the upper pole calyx of the left kidney. 2.8 mm focus in the posterior midpole calyx of the left kidney. There is a 2 cm x 0.7 cm calculus in the left renal pelvis extending into the lower pole calyx of the left kidney. Mild degree of left hydronephrosis. The previously seen calculus in the proximal portion of the left ureter is not seen at this time. Normal visualized stomach. Normal small intestine. Normal colon. There are surgical clips in the region of the appendix consistent with a prior appendectomy. There is atherosclerotic calcification of the abdominal aorta, without a demonstrated aneurysm. Normal inferior vena cava. Normal retroperitoneum. Normal urinary bladder. Enlarged fibroid uterus. There is a small umbilical hernia containing fat. Normal osseous structures. CT/Abdomen/Pelvis without Cont IMPRESSION: Stable bilateral intrarenal calculi. Stable mild left hydronephrosis. The previously seen calculus in the proximal portion of the left ureter is not seen at this time. Electronically Signed: Jamal Frederick MD at 12:18 EST ,
[2023-05-12 11:42] LABS: Red Blood Cells-Urine 25-50 SEEN /hpf (0-5); Squamous Epithelial Cells - UA 0-5 SEEN /hpf (5-10); White Blood Cells 25-50 SEEN /hpf (0-5)
[2023-05-12 11:48] LABS: Differential Indicated SCAN CRITERIA MET
[2023-05-12 11:54] LABS: Anisocytosis 1+
[2023-05-12 12:01] LABS: Anion Gap 2 (5-15); BUN 10 mg/dL (7-18); BUN/Creat Ratio 15.2 RATIO (10-20); Calcium,Total 8.5 mg/dL (8.5-10.1); Chloride 110 mmol/L (98-107); Creatinine, Serum 0.66 mg/dL (0.55-1.02); EST Glomerular Filtration Rate 101 mL/min (>60); Est Glom Filt Rate - Afr Amer 122 mL/min (>60); Estimated Creatinine Clearance 91.84 ml/min; Glucose 100 mg/dL (74-106); Potassium 3.7 mmol/L (3.5-5.1); Sodium Level 137 mmol/L (136-145)
[2023-05-12] MEDS: Cephalexin 250 MG Capsule 500 MG PO (13:15)
== END 2023-05-12 13:31 | disposition home or self-care (01) ==
PROVIDERS: Nurse Practitioner; Emergency Provider Emergency Medicine; PCP Internal Medicine; Visit Provider Emergency Medicine
DX: N13.6 Pyonephrosis (principal); M54.9 Dorsalgia, unspecified; G89.29 Other chronic pain; Z87.442 Personal history of urinary calculi
CPT/HCPCS: 74176; 80048; 81001; 85025; 87086; 87088; 96361; 96374; 96375; 99284; J7030; A4216

== ENCOUNTER → 2023-05-16 | Outpatient (CLI) | payer OTHER, SELFPAY ==
[2023-04-21 12:00] LABS: Hematocrit 32.6 % (37-47); Hemoglobin 8.6 g/dL (12.0-15.0); Mean Corp Hgb Conc 26.4 g/dL (32-36); Mean Corpuscular Hgb 17.9 pg (27.0-32.0); Mean Corpuscular Volume 67.9 fL (81-99); Mean Platelet Vol. 9.7 fl (6.2-12.0); Platelet Count 681 K/mm3 (150-450); RBC Distribution Width CV 19.3 % (11.6-14.6); RBC Distribution Width SD 46.8 fl (35.1-43.9); White Blood Count 9.9 K/mm3 (4.4-11.0)
== END | disposition home or self-care (01) ==
LOC: SDC 08:28 → PAT 13:33
PROVIDERS: PCP Internal Medicine; Referring Provider Obstetrics & Gynecology; Visit Provider Obstetrics & Gynecology
DX: Z01.818 Encounter for other preprocedural examination (principal)
CPT/HCPCS: 36415; 85027; 86850; 86900; 86901

== ENCOUNTER 2023-05-27 12:41 | Outpatient (CLI) | payer OTHER, SELFPAY ==
[2023-05-27] MEDS: Iron Sucrose Complex 300 MG in 0.9% Normal Saline (250mL Bag) 250 ML 177 MG IV (13:14)
[2023-05-27] MEDS: 0.9% NaCl Peripheral Flush Adult/Peds IV (13:17)
[2023-05-27] MEDS: 0.9% NaCl IVPB Med Flush (250 mL) 15 ML IV (13:17)
[2023-05-27 13:18] VITALS: BP 155/92; PULSE 80; RESP 16; TEMP 36.3; O2SAT 97; BMI 32.4
[2023-05-27 15:06] VITALS: BP 143/80; PULSE 92; RESP 16; TEMP 36.5; O2SAT 96
== END 2023-05-27 12:42 | disposition home or self-care (01) ==
LOC: MEDOUTP 12:42
PROVIDERS: PCP Internal Medicine; Referring Provider Obstetrics & Gynecology; Visit Provider Obstetrics & Gynecology
DX: D64.9 Anemia, unspecified (principal)
CPT/HCPCS: 96365; 96366; J1756; J7050; A4216

== ENCOUNTER → 2023-05-29 | Day surgery (SDC) | payer OTHER, SELFPAY ==
--- NOTE | 2023-05-29 14:19 | DCINST_ITS ---
Discharge Instructions Diet Discharge Diet: No restrictions Activity Discharge Activity: Return to Normal Activity Dressing / Incision Call your doctor if you observe: Fever of 101 or Higher, Inability to urinate and Inability to have a bowel movement Follow Up Care Please Follow Up With: Mable Nash MD When: the office will call to make follow up arrangements for her. Test Results: Test results from this visit will be discussed in further detail at your follow- up appointment, if applicable. Discharge Plan Admission Attending Provider: Mable Nash Primary Care Provider: Dhara Johns Discharge Orders/Prescriptions Prescriptions: No Action docusate sodium [Colace] 100 mg capsule 100 mg PO BID Qty: 180 3RF vitamin B complex [B Complex-Vitamin B12] Tablet 1 tab PO DAILY cholecalciferol (vitamin D3) 125 mcg (5,000 unit) capsule 125 mcg PO DAILY cranberry extract 250 mg capsule 250 mg PO DAILY Rx Instructions: administer with a meal Immune Support Complex 75 mg tablet 2 tab PO DAILY acetaminophen [Tylenol] 325 mg capsule 325 mg PO ONCE PRN (Reason: pain) oxycodone-acetaminophen [Percocet] 5-325 mg tablet 1 tab PO Q8H PRN (Reason: pain) 3 Days Qty: 10 0RF ondansetron 4 mg tablet,disintegrating 4 mg PO Q8H PRN PRN (Reason: Nausea) Qty: 10 0RF duloxetine [Cymbalta] 30 mg capsule,delayed release(DR/EC) 30 mg PO BID Qty: 180 3RF ferrous sulfate [Feosol] 325 mg (65 mg iron) tablet 325 mg PO .QOD Rx Instructions: may take up to 2 daily as tolerated Referrals / Follow Up: Dhara Johns MD [Primary Care Provider] - Disposition Disposition (needs filled in before D/C Order can be placed): Home, Self Care
--- NOTE | 2023-05-29 14:19 | PCM.OPRPT ---
Report of Operation Date of Procedure: 05/29/23 Pre-Operative Diagnosis: left renal stone Post-Operative Diagnosis: same Surgery/Procedure Performed:: canceled procedure due to patient ate lunch Surgeon: Mable Nash Type of Anesthesia: General Complications none Admit VTE Documentation VTE Present on Admission: Yes VTE Mechan Device Prophylaxis: SCD's VTE Pharm Prophylaxis ordered?: No Reason prophylaxis not ordered:: Treatment Not Indicated
[2023-05-29 14:38] VITALS: BP 138/96; PULSE 87; RESP 16; TEMP 36.6; O2SAT 98; BMI 32.5
== END | disposition home or self-care (01) ==
PROVIDERS: PCP Internal Medicine; Referring Provider Urology; Visit Provider Urology
DX: N20.0 Calculus of kidney (principal); Z53.8 Procedure and treatment not carried out for other reasons
CPT/HCPCS: J7120; J2405

== ENCOUNTER 2023-06-03 12:44 | Outpatient (CLI) | payer OTHER, SELFPAY ==
[2023-06-03] MEDS: 0.9% NaCl Peripheral Flush Adult/Peds IV (13:20)
[2023-06-03 13:25] VITALS: BP 144/80; PULSE 67; RESP 16; TEMP 36.3; O2SAT 100; BMI 32.5
[2023-06-03] MEDS: Iron Sucrose Complex 300 MG in 0.9% Normal Saline (250mL Bag) 250 ML 177 MG IV (13:31)
[2023-06-03] MEDS: 0.9% NaCl IVPB Med Flush (250 mL) 15 ML IV (13:32)
[2023-06-03 15:31] VITALS: BP 137/94; PULSE 68
== END 2023-06-03 12:45 | disposition home or self-care (01) ==
LOC: MEDOUTP 12:44
PROVIDERS: PCP Internal Medicine; Referring Provider Obstetrics & Gynecology; Visit Provider Obstetrics & Gynecology
DX: D64.9 Anemia, unspecified (principal)
CPT/HCPCS: 96365; 96366; J1756; J7050; A4216

== ENCOUNTER 2023-06-05 13:28 | Outpatient (CLI) | payer OTHER, SELFPAY ==
[2023-06-05 14:02] LABS: Hemoglobin 11.1 g/dL (12.0-15.0); Mean Corp Hgb Conc 28.5 g/dL (32-36); Mean Corpuscular Hgb 21.3 pg (27.0-32.0); Mean Corpuscular Volume 74.7 fL (81-99); Mean Platelet Vol. 10.1 fl (6.2-12.0); POSITIVE MORPHOLOGY YES; Platelet Count 458 K/mm3 (150-450); RBC Distribution Width CV 27.9 % (11.6-14.6); Red Blood Count 5.22 M/mm3 (4.2-5.4)
[2023-06-05 14:09] LABS: Scan Indicated on CBC? Y/N YES- FLAGS NOTED
[2023-06-05 14:27] LABS: Differential Comment SCANNED
== END 2023-06-05 23:59 | disposition home or self-care (01) ==
LOC: PAVLAB 13:28
PROVIDERS: PCP Internal Medicine; Referring Provider Obstetrics & Gynecology; Visit Provider Obstetrics & Gynecology
DX: Z01.812 Encounter for preprocedural laboratory examination (principal)
CPT/HCPCS: 36415; 85027; 86850; 86900; 86901

== ENCOUNTER 2023-06-06 06:01 | Day surgery (SDC) | payer OTHER, SELFPAY ==
[2023-06-06] VITALS (12 sets, daily range): BP systolic 111–160; BP diastolic 67–98; PULSE 71–88; RESP 16–18; TEMP 36.3–36.7; O2SAT 86–97; BMI 32.7
--- OUTSIDE RECORDS SUMMARY | 2023-06-06 06:07 | XMS RPT_ITS | CCD ---
Author Name Unknown Address [address] [place] [address] Organization [facility] Care Team Providers Care Home Economics Teacher Name Role Phone Free, Text Entry Unavailable Unavailable Loc Luther Unavailable Venkata Joshi Unavailable Unavailable Neeru Valentino MD Primary Care Provider [phone] NEERU VALENTINO Primary Care Unavailable DEBORAH PAVON II Attending UnavailKeyshawn Garcia Unavailable [phone] Hi Rossi Unavailable Unavailable Rubens Gavin Unavailable [phone] Maycol Simpson Unavailable Unavailab Keyshawn Pizarro Unavailable [phone] Nnamdi Blair Unavailable Unavailabl e Roger Bustillo, [...] (4 sources) meloxicam Drug Allergy Seizure, Seizures [facility] (5 sources) meloxicam; Translations: [MELOXICAM] Drug Allergy 1 Other: See Comments, Unknown [facility] (2 sources) Bee Venom Protein (Honey Bee); Translations: [BEE VENOM PROTEIN (HONEY BEE)] Drug Allergy [address] [facility] (1 source) Bee/Wasp/Ant venom Anaphylaxis [facility] (2 sources) ALLERGIES NOT ON FILE; Translations: [ALLERGIES NOT ON FILE] Propensity to adverse reactions (disorder) [facility] 2 Repository Medications Current Medications Medication Drug Class(es) Dates Sig (Normalized) Sig (Original) Ascorbic Acid (2 sources) Vitamin C take 1 capsule by mo [facility] once daily Immune Essentials 333.33 mg oral [...] 31.25 kg/m2 Keyshawn Garza Daniel Work Phone: PJ[facility]Tuhtizo[facility]Njyxdcu Work Phone: 12-09-2022 09:53-0400 Body surface area Derived from formula 1.7 m2 Keyshawn Garza Daniel Work Phone: SY-Boslszt-Gmttjcv Work Phone: 12-09-2022 09:53-0400 Body weight 72.58 kg Keyshawn Garza Daniel Work Phone: NF-Duptblv-Njxsnym Work Phone: 11-26-2022 12:41-0400 Body height 152.4 cm Hi Bustillo MD MPH Work Phone: [facility] 11-26-2022 12:41-0400 Body mass index (BMI) [Ratio] 31.82 kg/m2 Hi Bustillo MD MPH Work Phone: [facility] 11-26-2022 12:41-0400 Body weight 73.9 kg Hi Bustillo MD MPH Work Phone: [facility] 11-12-2022 13:39-0400 Diastolic blood pressure 73 mm[Hg] Keyshawn Sanchez Other Phone: [facility] 11-12-2022 13:39-0400 Heart rate 87 /min Keyshawn Sanchez Other Phone: [facility] 11-12-2022 13:39-0400 Respiratory rate 16 /min Keyshawn Sanchez Other Phone: [facility] 11-12-2022 13:39-0400 SaO2% (BldA) [Mass fraction] 97 % Keyshawn Sanchez Other Phone: [facility] 11-12-2022 13:39-0400 Systolic blood pressure 141 mm[Hg] Keyshawn Sanchez Other Phone: [facility] 11-12-2022 10:20-0400 Body height 152.4 cm Keyshawn Sanchez Other Phone: [facility] 11-12-2022 10:20-0400 Body temperature 96.8 [degF] Keyshawn Sanchez Other Phone: [facility] 11-12-2022 10:20-0400 Body weight 72.3 kg Keyshawn Sanchez Other Phone: [facility] 10-28-2022 10:37-0400 Body height 152.4 cm Keyshawn Sanchez Work Phone: PJ[facility]Bhprfuj-Mgkouzg Work Phone: 10-28-2022 10:37-0400 Body mass index (BMI) [Ratio] 31.27 kg/m2 Keyshawn Sanchez Work Phone: AP-Kyesuuj-Umqgfsf Work Phone: 10-28-2022 10:37-0400 Body surface area Derived from formula 1.7 m2 Keyshawn Sanchez Work Phone: MR-Auyclmm-Gsiqydb Work Phone: 10-28-2022 10:37-0400 Body weight 72.63 kg Keyshawn Sanchez Work Phone: EN-Qnywbdq-Aiyweem Work Phone: 10-28-2022 10:37-0400 Diastolic blood pressure 90 mm[Hg] Keyshawn Sanchez Work Phone: TT-Tbecryn-Qlpvium Work Phone: 10-28-2022 10:37-0400 Heart rate 78 /min Keyshawn Sanchez Work Phone: GY-Jeebpbx-Dhdymvq Work Phone: 10-28-2022 10:37-0400 Systolic blood pressure 159 mm[Hg] Keyshawn Sanchez Work Phone: LZ-Ncbxbbq-Btijpbm Work Phone: 10-26-2022 09:50-0400 Body temperature 98.96 [degF] Keyshanw Sanchez Other Phone: [facility] 10-26-2022 09:50-0400 Diastolic blood pressure 94 mm[Hg] Keyshawn Sanchez Other Phone: [facility] 10-26-2022 09:50-0400 Heart rate 99 /min Keyshawn Sanchez Other Phone: [facility] 10-26-2022 09:50-0400 Respiratory rate 16 /min Kyeshawn Sanchez Other Phone: [facility] 10-26-2022 09:50-0400 SaO2% (BldA) [Mass fraction] 92 % Keyshawn Sanchez Other Phone: [facility] 10-26-2022 09:50-0400 Systolic blood pressure 141 mm[Hg] Keyshawn Sanchez Other Phone: [facility] 05-28-2021 15:20-0500 Diastolic blood pressure 79 mm[Hg] Text Entry Free [facility] 05-28-2021 15:20-0500 Heart rate 80 /min Text Entry Free [facility] 05-28-2021 15:20-0500 Respiratory rate 16 /min Text Entry Free [facility] 05-28-2021 15:20-0500 SaO2% (BldA) [Mass fraction] 98 % Text Entry Free [facility] 05-28-2021 15:20-0500 Systolic blood pressure 142 mm[Hg] Text Entry Free [facility] 05-28-2021 12:42-0500 Body height 152.4 cm Text Entry Free [facility] 05-28-2021 12:42-0500 Body temperature 97.34 [degF] Text Entry Free [facility] 05-28-2021 12:42-0500 Body weight 68.2 kg Text Entry Free [facility] 03-22-2021 13:0500 Body height 152.4 cm Text Entry Free [facility] 03-22-2021 13:0500 Body temperature 98.06 [degF] Text Entry Free [facility] 03-22-2021 13:-0500 Diastolic blood pressure 95 mm[Hg] Text Entry Free [facility] 03-22-2021 13:-0500 Heart rate 98 /min Text Entry Free [facility] 03-22-2021 13:0500 Respiratory rate 16 /min Text Entry Free [facility] 03-22-2021 13:0500 SaO2% (BldA) [Mass fraction] 96 % Text Entry Free [facility] 03-22-2021 13:0500 Systolic blood pressure 138 mm[Hg] Text Entry Free [facility] Encounters Encounter Date Encounter Type Care Provider Facility Start: 03-24-2023 End: 03-24-2023 ambulatory [facility] Ambulatory Start: 03-17-2023 End: 03-18-2023 ambulatory [facility] Start: 03-17-2023 End: 03-17-2023 Subsequent hospital visit by physician Skinny Snow 1 [facility] Procedures Date Procedure Procedure Detail Performing Clinician [...] Glaucoma suspect of both eyes Expected: 07/14/2024 [facility] Work Phone: Payers Date Payer Category Payer Unknown 2022 [employer] others) [id number] 2022 [employer] ( [employer] others[place] [employer] [id number] 2022-Present [address] [place] [address] [id number] 2021 [employer] ( and others) [id number] 1975 Unknown [id number] 1973 Unknown [id number] 1069 1973 Unknown [id number] 1069 1973 Unknown [id number] 356 1973 Unknown [id number] 356 1973 Unknown [id number] 1243 1973 Unknown [id number] 1244 Social History Date Type Detail Facility [facility] Tobacco smoking consumption unknown [facility] Start: 05-10-2021 Tobacco smoking stat us NHIS Never smoked tobacco [facility] Start: 05-10-2021 Tobacco use and exposure Smokeless tobacco non-user [facility] Start: 07-25-2022 Alcohol intake Current drinke r of alcohol (finding) [facility] Start: 05-10-2021 Alcohol Comment social- wine [facility] Start: 1975 Sex Assigned At Not on file [facility] Never smoked cigarettes Never smoked ciga rettes [facility] Work Phone: Gender identity Not on file [facility] [employer] [facility] Work Phone: Start: 03-07-2023 End: 03-17-2023 Exposure to SARS-CoV-2 (event) Not sure [facility] Functional Status Date Assessment Result Facility Functional observable [facility] Mental Status Date Assessment Result Facility 10-24-2022 Cognitive functi ons 02-Mov-030062:55 [facility] Clinical Notes 07-25-2022 to 11-29-2022 Op Note [...] left kidney, N20.0 Surgeon: Hi Rossi Resident/Fellow/Other Head Of Maintenance: None of these were associated with this [...] the standard surgical fashion. First, a 21 Mongolian cystoscope was inserted into the bladder, the [...] Last Updated: 29-Nov-2022 14:17 by Hi Rossi) [facility] 11-29-2022 Note History of Present I llness: [...] Surgical Update < 30 days 29-Nov-2022 07:44 [facility] 11-29-2022 Miscellaneous Notes PROCEDURE DETAILS Preoperative Diagnosis: Calculus of left kidney, N20.0 Postoperative Diagnosis: Calculus of left kidney, N20.0 Surgeon: Hi Rossi Resident/Fellow/Other Head Of Maintenance: None of these were associated with this [...] the standard surgical fashion. First, a 21 Mongolian cystoscope was inserted into the bladder, the [...] by Hi Rossi) documented in this encounter [facility] Work Phone: 11-29-2022 Note Formatting of this n ote is different from the original. PROCEDURE DETAILS Preoperative Diagnosis: Calculus of left kidney, N20.0 Postoperative Diagnosis: Calculus of left kidney, N20.0 Surgeon: Hi Rossi Resident/Fellow/Other Head Of Maintenance: None of these were associated with this [...] the standard surgical fashion. First, a 21 Mongolian cystoscope was inserted into the bladder, the [...] Updated: 29-Nov-2022 14:17 by Hi Rossi) T [facility] Work Phone: 11-29-2022 Note History & [...] Last Updated: 29-Nov-2022 07:44 by Hi Rossi) [facility] 11-29-2022 History and physical note History of [...] Update < 30 days 29-Nov-2022 07:44 T [facility] Work Phone: 11-29-2022 History and physical [...] by Hi Rossi) documented in this encounter [facility] Work Phone: 11-29-2022 History and physical [...] Last Updated: 29-Nov-2022 07:44 by Hi Rossi) [facility] Work Phone: 10-25-2022 Note PROCEDURE DETAILS Preoperative Diagnosis: Calculus of left kidney, N20.0 Postoperative Diagnosis: Calculus of left kidney, N20.0 Surgeon: Hi Rossi Resident/Fellow/Other Head Of Maintenance: None of these were associated with this [...] the standard surgical fashion. First, a 21 Mongolian cystoscope was inserted into the bladder, and [...] Last Updated: 25-Oct-2022 08:01 by Hi Rossi) [facility] 10-24-2022 Note Send Summary: Discharge Summary Providers: [...] at Discharge: Home Vital Signs: T PRBPMAPSpO2 Value37.59563129/163235% Date/Time10/26 7:5010/26 7:5010/26 7:5010/26 7:5010/25 15:15 7:50 Range(36.2C - 37.6C ) (91 - 122 ) (16 - 20 ) (121 - 149 )/ (73 - 94 ) (93 - 97 ) (90% - 96% ) Highest temp of 37.6 C was recorded at 10/25 12:24 Date: Weight/Scale Type:Height: 23-Oct-2022 21:2761.1 kg / bam972.4 cm Physical Exam: General Appearance: AAO x [...] motor deficits Hospital Course: Patient presented to [facility] ED on October 24 for left-sided flank [...] needed for bladder spasms E scribed to [facility] pharmacy in [place]. Call 911 or go to nearest ED [...] Full Code Electronic Signatures: Tanya Haas ([facility]) (Signed 26-Oct-2022 08:38) Authored: Summary Content, Ongoing Care, Note Completion Princess Butterfield ([facility]) (Signed 24-Oct-2022 15:55) Authored: Send Summary, Summary Content, Ongoing Care, DNR Status Last Updated: 26-Oct-2022 08:38 by Tanya Haas ([facility]) [facility] 10-24-2022 Note History & Physical R eviewed: [...] Patient Profile - Adult v2 23-Oct-2022 21:27 [facility] 10-24-2022 Note History of Present I llness: [...] a day. Objective: Objective Information: T PRBPMAPSpO2 Value36.51897771/9293% Date/Time10/23 17:487 21: 21: 21: 21:25 Range(36.3C [...] the rest of (more content not included)... [facility] 07-25-2022 Note HNO ID: [id number] Author: Deborah Pavon II, OD Service: ? Author Type: LAW[employer]ER [employer] Type: Progress Notes Filed: 07/25/2022 9:57 AM [...] its relevant components. Deborah Pavon II, OD [facility] 07-25-2022 Instructions Deborah Pavon II, OD [...] Pavon II, OD documented in this encounter [facility] 07-25-2022 History of Presen t illness Narrative [...] Pavon II, ELAN documented in this encounter [facility] documented [facility] Psychological: Appropriate mood and behaviorNeurological: alert [...] awake/alert/oriented x3, no distress, alert and cooperative [facility] Calculus of kidney Pain, unspecified documented in this encounter [facility] Work Phone: Evaluation note* Diagnosis Calculus of ureter documented in this encounter [facility] Work Phone: History of Present illness NarrativePatient is here today for kidney stones..S/P LEFT URETEROSCOPY w/ STENT...Pt states she has had no issues with the stent...some pressure with urination..No increased urgency or frequency...No dysuria..pt states she does have blood but she did start her period...Nocturia 3x..[facility] Work Phone: Hospital Discharge instructions* Activity:activity as [...] Referral: hospitalizationCall to Schedule in: 2 weeksLocation: [address] [place] [address]Yhycg Number: [phone]: Please call and schedule an appointment within 2 weeks of your hospital Discharge * Follow Up Appointment 2:Physician/Dept/Service: Dr. Pope for Referral: renal stoneScheduledDate/Time: 28-Oct-2022 10:15Location: [address] [place], [place] [address]Gasyw Number: [phone] [facility] Summary Purpose Family History No Family History [...] Procedures US renal complete Hi Rossi MD [facility] [address] [place] [address] Referral ID Status Reason Start Date Expiration Date Visits Requested Visits Authorized [id number] Pending Review Perform Procedure 12/26/2022 06/24/2023 1 [...] or prosecute any alcohol or drug abuse patient.[facility] Reason for Visit (unrecogniz ed section and content) Reason Comments Other LEFT URETEROSCOPY, L EFT RPG WITH HOLMIUM LASER AND STENT EXCHANGE / [id number] Specialty Diagnoses / Procedures Referred By Hamilton oneill Referred To Contact Radiology Diagnoses Calculus of ureter Procedures US renal complete Hi Rossi MD [facility] [address] [place] [address] Referral ID Status Reason Start Date Expiration Date Visits Requested Visits Authorized [id number] Pending Review Perform Procedure 12/26/2022 06/24/2023 1 1 Care Teams (unrecognized sec tion and content) Home Economics Teacher Relationship Specialty Start Date End Date Keyshawn Sanchez MD [address] [place] [address] PCP - General 10/23/22 Home Economics Teacher Relationship Specialty Start Date End Date Keyshawn Sanchez MD [address] [place] [address] PCP - General 10/23/22 INFORMATION SOURCE (unrecogn ized section and content) DATE CREATED AUTHOR AUTHOR'S ORGANIZ ATION 12/04/2022 [facility] DATE CREATED AUTHOR AUTHOR'S ORGANIZ ATION 12/09/2022 [facility] DATE CREATED AUTHOR AUTHOR'S ORGANIZ ATION 12/13/2022 [facility] [place] DATE CREATED AUTHOR AUTHOR'S ORGANIZ ATION 03/24/2023 [facility] DATE CREATED AUTHOR AUTHOR'S ORGANIZ ATION 03/26/2023 [facility] FOR RECORDS PERTAINING TO PATIENTS [...] BE BASED ON THE PRIMARY CLINICAL RECORDS. [facility]. provides no warranty or guarantee of the accuracy or completeness of information in this document.
[2023-06-06 06:37] LABS: Internal QC Validated? YES +Cl - CLEAR BKGD; Pregnancy, Urine Negative Negative
[2023-06-06] MEDS: Lactated Ringers 1,000 ML 15 ML IV (06:50)
--- NOTE | 2023-06-06 07:30 | EMB_PTH ---
PATHOLOGY RESULTS PATIENT: YADIRA QUEZADA LOC: [facility] U#:[id number] AGE/SX: 47/F ROOM: RE06/06/[address]: Dr. Brianda Varma DO : 1975 BED: DIS: 06/06/2023 SPEC #: [id number] RECD: 06/06/23 12:47 STATUS: ALAN NICANOR #: [id number] HARDEEP: 06/06/23 07:[address]: Brianda Varma DEPT: SURGICAL PATHOLOGY RECD BY: Kaylen Fererira ENTERED: 06/06/23 12:47 SP TYPE: ENDOM BX/C HUONG DR: Dr. Dhara Johns MD Tissues: Endometrium, NOS Procedures: Surgery Specimen Level IV HEADER OPERATION: Hysteroscopy, dilation and curettage, Veronica endometrial ablation PRE-OP DIAGNOSIS: Menorrhagia with irregular cycle TISSUE SUBMITTED: Endometrial curettings MICROSCOPIC DIAGNOSIS Endometrium, curettings: Secretory endometrium with stromal and focal glandular breakdown. AM:weston 06/09/2023 MICROSCOPIC DESCRIPTION Slides are reviewed. GROSS DESCRIPTION Received in fixative is one container labeled with the patient's name and designated endometrial curettings. The specimen consists of multiple fragments of hemorrhagic soft tissue that in aggregate measure 4.0 x 3.0 x 0.2 cm. The entire specimen is submitted in two cassettes. / SJ:weston 06/06/2023 TC:5 CPT: 54305
--- NOTE | 2023-06-06 07:37 | HP.PCM_ITS ---
History and Physical Date of Admission: 06/06/23 Intake Vital Signs 02/05/2313:14 04/21/2410:02 04/21/2410:02 Height 5 ft 5 ft 5 ft Weight: 167 lb 6 oz BMI 32.6 BP 135/91 H Intake Visit Reasons: endometrial ablation justine menendez Compensation Administrator Required: No Is patient in pain?: No Allergies bee venom protein (honey bee) Allergy (Severe, Verified 04/21/23 11:01) Anaphylaxismeloxicam [From Mobic] Allergy (Mild, Verified 04/21/23 11:01) unknown Medications C-Zn-K.ginseng-pa hips-[id number] 75 mg tablet (Immune Support Complex) 2 tab PO DAILY 03/21/21 [History Confirmed 04/21/23] cholecalciferol (vitamin D3) 125 mcg (5,000 unit) capsule 125 mcg PO DAILY 03/21/21 [History Confirmed 04/21/23] cranberry extract 250 mg capsule 250 mg PO DAILY 03/21/21 [History Confirmed 04/21/23] fluticasone propionate 50 mcg/actuation nasal spray,suspension 1 spray intranasal DAILY 03/21/21 [History Confirmed 04/21/23] vitamin B complex (B Complex-Vitamin B12 tablet) 1 tab PO DAILY 03/21/21 [History Confirmed 04/21/23] docusate sodium 100 mg capsule (Colace) 100 mg PO BID #180 caps 03/28/21 [Rx Confirmed 04/21/23] duloxetine 30 mg capsule,delayed release (Cymbalta) 30 mg PO BID #180 caps 05/09/22 [Rx Confirmed 04/21/23] ferrous sulfate 325 mg (65 mg iron) tablet (Feosol) 325 mg PO DAILY 05/22/22 [History Confirmed 04/21/23] acetaminophen 325 mg capsule (Tylenol) 325 mg PO ONCE PRN pain 11/28/22 [History Confirmed 04/21/23] Post menopausal: No Patient : No : No PFSH Medical History Anemia Anxiety Bilateral bunions Easy bruising Fracture of medial malleolus, right, closed History of edema History of PCOS History of renal disease Hypertension Kidney stone Loss of hearing Low iron Non-smoker Restless legs Right ankle pain Syncope Wears contact lenses Wears glasses Surgical History History of bunionectomy of both great toes History of renal stent Hx of dilation and curettage S/P appendectomy Family History Other CVA (cerebral vascular accident) Cancer Diabetes Heart disease Myocardial infarction Social History household members: spouse and children number of children: 4 current occupational status: employed 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 She is scheduled for a hysteroscopy dilation and curettage with minerava ablation and MUS with Dr. Nash History Past Pregnancies Del. Date Name GA/Weeks Outcome Route Bth Weight Gen Labor Lgth Anesthesia Del Locatn Provider FOB Unknown Piper 1991 Unknown Julio 1994 Unknown Omid 1998 Unknown Jospeh 2000 ROS Const ROS Unobtainable: All systems reviewed & are unremarkable except as noted in H Resp Resp: Reports system reviewed and no additional complaints, except as documented; Denies cough GI GI: Reports as per HPI Psych Psych: Reports system reviewed and no additional complaints, except as documented Exam Const General: cooperative, healthy appearing, comfortable and no acute distress Resp Effort & Inspection: normal respiratory effort Skin General: no rashes or lesions noted Psych Appearance: grossly normal Speech and Movement: speech and movement normal Coding Level of Care Code Off vis,est,level 3 Diagnoses Menorrhagia with irregular cycle N92.1 Assessment and Plan Assessment and Plan (1) Menorrhagia with irregular cycle: Status: Acute Plan: After discussing the patient's diagnosis and treatment plan options, patient wishes to proceed with surgical management. I have discussed with the patient the risks, benefits, and alternatives of the procedure which include but are not limited to risks of anesthesia, bleeding, infection, possible damage to bowel, bladder, or surrounding vasculature which could lead to additional surgery to evaluate any complications. Patient agrees to procedure and wishes to proceed. ACOG/uptodate references given for additional information regarding procedure. plan for hysteroscopy D&C minera ablation
--- NOTE | 2023-06-06 07:37 | DCINST_ITS ---
Discharge Instructions Diet Discharge Diet: No restrictions Activity Discharge Activity: Return to Normal Activity, May Shower and May Take a Tub Bath (after 1 week) May resume sexual activity in: 1-2 weeks Weight Bearing Status: Weight bearing as tolerated Lifting Restrictions: none Dressing / Incision Call your doctor if you observe: Fever of 101 or Higher, Using more than 1 pad per hour, Shortness of breath and Uncontrolled pain Follow Up Care Please Follow Up With: Brianda Varma DO When: Call [phone] to schedule appointment. Test Results: Test results from this visit will be discussed in further detail at your follow- up appointment, if applicable. Discharge Plan Admission Primary Reason for Your Visit: uterine ablation Attending Provider: Brianda Varma Primary Care Provider: Dhaar Johns Instructions Additional Instructions / Restrictions: take 800 mg of motrin plus 500 mg of tylenol every 8 hours for first 24 hours for pain, then as needed Discharge Orders/Prescriptions Prescriptions: No Action docusate sodium [Colace] 100 mg capsule 100 mg PO BID Qty: 180 3RF vitamin B complex [B Complex-Vitamin B12] Tablet 1 tab PO DAILY cholecalciferol (vitamin D3) 125 mcg (5,000 unit) capsule 125 mcg PO DAILY cranberry extract 250 mg capsule 250 mg PO DAILY Rx Instructions: administer with a meal Immune Support Complex 75 mg tablet 2 tab PO DAILY acetaminophen [Tylenol] 325 mg capsule 325 mg PO ONCE PRN (Reason: pain) oxycodone-acetaminophen [Percocet] 5-325 mg tablet 1 tab PO Q8H PRN (Reason: pain) 3 Days Qty: 10 0RF ondansetron 4 mg tablet,disintegrating 4 mg PO Q8H PRN PRN (Reason: Nausea) Qty: 10 0RF duloxetine [Cymbalta] 30 mg capsule,delayed release(DR/EC) 30 mg PO BID Qty: 180 3RF ferrous sulfate [Feosol] 325 mg (65 mg iron) tablet 325 mg PO .QOD Rx Instructions: may take up to 2 daily as tolerated Referrals / Follow Up: Dhara Johns MD [Primary Care Provider] - Disposition Disposition (needs filled in before D/C Order can be placed): Home, Self Care
[2023-06-06] MEDS: Lidocaine 1% (30 ml sdv) 30 ML Vial (09:15)
--- NOTE | 2023-06-06 09:26 | PCM.OPRPT ---
Problems Associated Problem List Diagnoses (1) Menorrhagia with irregular cycle: Report of Operation Date of Procedure: 06/06/23 Pre-Operative Diagnosis: menorrhagia causing anemia Post-Operative Diagnosis: menorrhagia causing anemia Surgery/Procedure Performed:: hysteroscopy dilation and curettage, veronica endometrial ablation Description of Surgical Findings:: 4.5 cm endometrial cavity with some proliferative appearing tissue. Grade 2 uterine prolapse Surgeon: Brianda Varma cottage attendant: None Type of Anesthesia: MAC and Topical Anesth Specimen's removed: endometrial curetting's Drains: none Estimated Blood Loss (mL): 5cc Description of Procedure: Patient was prepped and draped in a normal sterile fashion under MAC anesthesia. A weighted speculum was placed in the vagina and the anterior lip of the cervix was grasped with a single-tooth tenaculum. A paracervical block was placed with 1% lidocaine. The Uterus sounded to 10 cm. Cervix was progressively dilated to allow passage of a 5 mm hysteroscope. The lining was fully visualized and noted to have proliferative appearing tissue. the cervical length was lightly over 5 cm in length .Curettage was performed and the specimen sent to pathology. The veronica device was inserted and all safety checks were made. The device activated for the full burn cycle. A second look with the hysteroscope showed adequate burn of the endometrium. All instruments were removed from the vagina and excellent hemostasis was noted. Patient was awoken and taken to recovery in stable condition. Admit VTE Documentation VTE Present on Admission: No VTE Mechan Device Prophylaxis: SCD's VTE Pharm Prophylaxis ordered?: No Multi Select Codes Urinary/Genital Urinary/Genital CPT Codes: 45499 Veronica/Novasure and 81720 Hysteroscopy,EMC, Polypectomy
== END 2023-06-06 13:14 | disposition home or self-care (01) ==
LOC: SDC 06:02 → AC 06:03
PROVIDERS: PCP Internal Medicine; Referring Provider Obstetrics & Gynecology; Visit Provider Obstetrics & Gynecology
PROC: 0U5B8ZZ Destruction of Endometrium, Via Natural or Artificial Opening Endoscopic (ICD-10-PCS; CPT 58558; principal; 2023-06-06 07:15)
DX: N92.1 Excessive and frequent menstruation with irregular cycle (principal); D64.9 Anemia, unspecified; I10 Essential (primary) hypertension; N81.2 Incomplete uterovaginal prolapse; E78.1 Pure hyperglyceridemia
CPT/HCPCS: 58563; 00952; 81025; 88305; J7120; J2405

== ENCOUNTER 2023-06-10 13:00 | Outpatient (CLI) | payer OTHER, SELFPAY ==
[2023-06-10 13:20] VITALS: BP 143/81; PULSE 83; RESP 16; TEMP 36; BMI 32.5
[2023-06-10] MEDS: 0.9% NaCl Peripheral Flush Adult/Peds IV (13:29)
[2023-06-10] MEDS: 0.9% NaCl IVPB Med Flush (250 mL) 15 ML IV (13:30)
[2023-06-10] MEDS: Iron Sucrose Complex 300 MG in 0.9% Normal Saline (250mL Bag) 250 ML 177 MG IV (13:48)
[2023-06-10 15:44] VITALS: BP 134/88; PULSE 85; RESP 16; TEMP 36.3
== END 2023-06-10 13:01 | disposition home or self-care (01) ==
LOC: MEDOUTP 13:01
PROVIDERS: PCP Internal Medicine; Referring Provider Obstetrics & Gynecology; Visit Provider Obstetrics & Gynecology
DX: D64.9 Anemia, unspecified (principal)
CPT/HCPCS: 96365; 96366; J1756; J7050; A4216

== ENCOUNTER 2023-06-19 12:47 | Day surgery (SDC) | payer OTHER, SELFPAY ==
[2023-06-19] VITALS (8 sets, daily range): BP systolic 120–149; BP diastolic 80–96; PULSE 75–86; RESP 16–18; TEMP 36.1–36.9; O2SAT 97–99; BMI 32.7
[2023-06-19] MEDS: Lactated Ringers 1,000 ML 15 ML IV (13:29)
[2023-06-19] MEDS: Cefazolin 2 GM in 0.9% Normal Saline (100mL Bag) 100 ML IV (14:23)
--- NOTE | 2023-06-19 15:50 | DCINST_ITS ---
Discharge Instructions Diet Discharge Diet: No restrictions Activity Discharge Activity: Return to Normal Activity Dressing / Incision Call your doctor if you observe: Fever of 101 or Higher, Inability to urinate and Inability to have a bowel movement Follow Up Care Please Follow Up With: Mable Nash MD When: The office will call the patient tomorrow to make arrangements. Test Results: Test results from this visit will be discussed in further detail at your follow- up appointment, if applicable. Discharge Plan Admission Attending Provider: Mable Nash Primary Care Provider: Dhara Johns Discharge Orders/Prescriptions Prescriptions: New phenazopyridine [Pyridium] 200 mg tablet 200 mg PO TID PRN PRN (Reason: Bladder Spasms) 7 Days Qty: 30 3RF cephalexin [cephalexin] 500 mg capsule 500 mg PO Q12 3 Days Qty: 6 0RF Continued docusate sodium [Colace] 100 mg capsule 100 mg PO BID Qty: 180 3RF vitamin B complex [B Complex-Vitamin B12] Tablet 1 tab PO DAILY cholecalciferol (vitamin D3) 125 mcg (5,000 unit) capsule 125 mcg PO DAILY cranberry extract 250 mg capsule 250 mg PO DAILY Rx Instructions: administer with a meal Immune Support Complex 75 mg tablet 2 tab PO DAILY acetaminophen [Tylenol] 325 mg capsule 325 mg PO ONCE PRN (Reason: pain) ibuprofen-acetaminophen [Advil Dual Action] 125-250 mg tablet 1 tab PO Q8H PRN (Reason: pain) oxycodone-acetaminophen [Percocet] 5-325 mg tablet 1 tab PO Q8H PRN (Reason: pain) 3 Days Qty: 10 0RF ondansetron 4 mg tablet,disintegrating 4 mg PO Q8H PRN PRN (Reason: Nausea) Qty: 10 0RF duloxetine [Cymbalta] 30 mg capsule,delayed release(DR/EC) 30 mg PO BID Qty: 180 3RF Referrals / Follow Up: Dhara Johns MD [Primary Care Provider] - Disposition Disposition (needs filled in before D/C Order can be placed): Home, Self Care
--- NOTE | 2023-06-19 15:53 | PCM.HP.STD ---
HPI - General HPI Narrative YADIRA QUEZADA, is a 47 F who presents [facility] Medical History (Updated 06/19/23 @ 15:[address] Mable Nash MD) Alcohol use Anemia Anxiety Easy bruising Endometrial polyp Fracture of medial malleolus, right, closed Heavy menstrual bleeding History of pain when walking History of PCOS Hx of fracture of ankle Hypertension Left renal stone Loss of hearing Non-smoker Restless legs Right ankle pain Syncope Wears contact lenses Wears glasses Home Medications [id number] 75 mg tablet (Immune Support Complex) 2 tab PO DAILY 03/21/21 [History Last Taken 06/18/23] cholecalciferol (vitamin D3) 125 mcg (5,000 unit) capsule 125 mcg PO DAILY 03/21/21 [History Last Taken 06/18/23] cranberry extract 250 mg capsule 250 mg PO DAILY 03/21/21 [History Last Taken 06/18/23] vitamin B complex (B Complex-Vitamin B12 tablet) 1 tab PO DAILY 03/21/21 [History Last Taken 06/18/23] docusate sodium 100 mg capsule (Colace) 100 mg PO BID #180 caps 03/28/21 [Rx Last Taken 06/18/23] duloxetine 30 mg capsule,delayed release (Cymbalta) 30 mg PO BID #180 caps 05/09/22 [Rx Last Taken 06/18/23] acetaminophen 325 mg capsule (Tylenol) 325 mg PO ONCE PRN pain 11/28/22 [History Last Taken Unknown] ibuprofen 125 mg-acetaminophen 250 mg tablet (Advil Dual Action) 1 tab PO Q8H PRN pain 06/13/23 [History Last Taken Unknown] cephalexin 500 mg capsule 500 mg PO Q12 post-operative 3 days #6 CAPSULES 06/19/23 [Rx Last Taken Unknown] ondansetron 4 mg disintegrating tablet 4 mg PO Q8H PRN PRN Nausea #10 tabs 06/19/23 [Rx Last Taken Unknown] oxycodone-acetaminophen 5 mg-325 mg tablet (Percocet) 1 tab PO Q8H PRN pain 3 days #10 tabs 06/19/23 [Rx Last Taken Unknown] phenazopyridine 200 mg tablet (Pyridium) 200 mg PO TID PRN PRN Bladder Spasms 7 days #30 tabs 06/19/23 [Rx Last Taken Unknown] Allergy/AdvReac Type Severity Reaction Status Date / Time bee venom protein (honey bee) Allergy Severe Anaphylaxis Verified 06/13/23 09:16 meloxicam [From Mobic] Allergy Mild unknown Verified 06/13/23 09:16 Family History Other CVA (cerebral vascular accident) Cancer Diabetes Heart disease Myocardial infarction Surgical History H/O dilation and curettage History of bunionectomy of both great toes History of endometrial ablation History of hysteroscopy History of renal stent S/P appendectomy Social History household members: spouse and children number of children: 4 current occupational status: employed 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 Smoking Status: Never smoker alcohol intake: current alcohol intake frequency: a few times a month Alcohol type: wine substance use type: does not use seatbelt use: always do you feel safe at home: Yes additional social history: - Kody REGALADO Constitutional Constitutional: Reports systems reviewed and no addt'l complaints, except as documented Eyes Eyes: Reports systems reviewed and no addt'l complaints, except as documented ENT HEENT: Reports systems reviewed and no addt'l complaints, except as documented Cardiovascular Cardiovascular: Reports systems reviewed and no addt'l complaints, except as documented; Denies chest pain or dyspnea Respiratory/Chest Respiratory/Chest: Reports systems reviewed and no addt'l complaints, except as documented; Denies cough or dyspnea Gastrointestinal Gastrointestinal: Denies nausea or vomiting Genitourinary Genitourinary: Reports urinary incontinence; Denies flank pain, hematuria, urinary frequency or urinary hesitancy Musculoskeletal Musculoskeletal: Reports systems reviewed and no addt'l complaints, except as documented Integumentary Integumentary: Reports systems reviewed and no addt'l complaints, except as documented Neurologic Neurologic: Reports systems reviewed and no addt'l complaints, except as documented Psychiatric Psychiatric: Reports systems reviewed and no addt'l complaints, except as documented Endocrine Endocrinology: Reports systems reviewed and no addt'l complaints, except as documented Hematologic/Lymphatic Hematologic/Lymphatic: Reports systems reviewed and no addt'l complaints, except as documented Allergic/Immunologic Allergic/Immunologic: Reports systems reviewed and no addt'l complaints, except as documented Vital Signs Vital Signs Vital Signs: 06/19/23 13:26 06/19/23 13:26 06/19/23 15:26 Temperature 98.4 F 97 F L Temperature Source Temporal Temporal Pulse Rate 81 85 Respiratory Rate 16 16 Respiratory Pattern Normal Normal Blood Pressure 149/96 H 120/90 H Blood Pressure Mean 113 100 Blood Pressure Source Monitor Monitor Blood Pressure Position Semi-Fowlers Semi-Fowlers Blood Pressure Location Right Arm Baseline BP 149/96 Pulse Ox 98 99 Oxygen Delivery Method Room Air Room Air 06/19/23 15:30 06/19/23 15:35 06/19/23 15:40 Temperature Temperature Source Pulse Rate 86 83 76 Respiratory Rate 16 16 16 Respiratory Pattern Blood Pressure 127/81 H 128/83 H 127/82 H Blood Pressure Mean 96 98 97 Blood Pressure Source Monitor Monitor Monitor Blood Pressure Position Semi-Fowlers Semi-Fowlers Semi-Fowlers Blood Pressure Location Right Arm Right Arm Right Arm Baseline BP 149/96 149/96 149/96 Pulse Ox 97 98 98 Oxygen Delivery Method Room Air Room Air Room Air Weight Weight: 76 kg Body Mass Index (BMI) 32.7 Physical Exam Const alert, oriented x3 and no apparent distress General Appearance: cooperative, comfortable and well kempt HEENT normocephalic, head/scalp atraumatic, hearing grossly normal bilaterally, external ears normal, external nose normal and moist oral mucous membranes Eyes General Eye: normal appearance of both eyes Neck supple General: trachea midline Lymph Lymphatic: no lymphedema noted Chest inspection of chest normal Resp normal respiratory effort, normal air movement, no retractions and no use of accessory muscles Cardio regular rate and regular rhythm GI soft to palpation, non-tender and non-distended no CVA tenderness Back/Spine no CVA tenderness Extremity normal to inspection Skin no rashes or lesions noted, no wounds, skin turgor normal, no jaundice, no petechiae and no mottling Neuro oriented x3, CN's II-XII intact bilaterally and moves all extremities Psych mental status grossly normal, thought process normal and cooperative Assessment & Plan Assessment/Plan (1) Left renal stone: PLAN: Plan Proceed with cystoscopy, left ureteral stent insertion, left renal extracorporal shockwave lithotripsy Informed consent has been obtained
--- NOTE | 2023-06-19 15:56 | PCM.OPRPT ---
Report of Operation Date of Procedure: 06/19/23 Pre-Operative Diagnosis: Left renal stones Post-Operative Diagnosis: Same Surgery/Procedure Performed:: Cystoscopy with left ureteral stent insertion, left renal extracorporal shockwave lithotripsy Surgeon: Mable Nash Type of Anesthesia: General Specimen's removed: None Description of Procedure: The patient is a 47-year-old female with a large stone burden in the left kidney. She presents for surgical intervention. Informed consent has been obtained. The patient was taken to the operating room and placed on the operating room table. Anesthesia monitored the head, neck, airway, IV access and vital signs throughout the case. Once anesthesia was appropriately administered, the patient was placed into dorsal lithotomy position and was prepped and draped in usual sterile fashion. The cystoscope was inserted through the urethra under direct visualization into the urinary bladder. The bladder mucosa was visualized in its entirety finding no evidence of mass, erythema, ulceration or foreign body. The left ureteral orifice was gently intubated with a 0.035 Glidewire which advanced into the renal pelvis without difficulty. A 6 Singaporean 20 cm JJ stent was then placed over the wire with good positioning in the renal pelvis as well as the urinary bladder. The patient was then repositioned into a supine position so that the stone was easily accessible to the lithotripter. 3000 shocks were applied to the stone burden which appeared to be well fragmented at the conclusion of the case. She was then awakened and taken to the recovery room in good condition. There were no complications during this procedure. Grafts/Implants Used: 6 Singaporean by 20 cm JJ stent Complications None Admit VTE Documentation VTE Present on Admission: Yes VTE Mechan Device Prophylaxis: SCD's VTE Pharm Prophylaxis ordered?: No Reason prophylaxis not ordered:: Treatment Not Indicated
== END 2023-06-19 16:43 | disposition home or self-care (01) ==
LOC: SDC 12:48 → AC 12:50
PROVIDERS: PCP Internal Medicine; Referring Provider Urology; Visit Provider Urology
PROC: (CPT 50590; principal; 2023-06-19 14:20)
DX: N20.0 Calculus of kidney (principal); I10 Essential (primary) hypertension; E78.1 Pure hyperglyceridemia; Z79.899 Other long term (current) drug therapy
CPT/HCPCS: 50590; 52332; 00918; J7120; J2405

== ENCOUNTER → 2023-07-02 | Outpatient (CLI) | payer OTHER, SELFPAY ==
--- NOTE | 2023-07-02 09:50 | RAD_ITS ---
HISTORY: KIDNEY STONE. TECHNIQUE: XR Abdomen 1 View. COMPARISON: CT 05/12/2023. FINDINGS: BOWEL GAS PATTERN: No dilated bowel loops identified. FREE AIR: Not assessed on supine view. CALCIFICATIONS: Multiple left renal calculi measuring up to 8 mm. Possible and of left ureteral stent mildly uncoiled with tip at the level of the renal pelvis. Multiple calculi along the proximal and distal aspect of the stent. 9 mm calculus at the right L4 level. Multiple right pelvic phleboliths. BONES: Unremarkable. RAD/Abdomen Single View IMPRESSION: Interval placement of left ureteral stent with multiple calculi along the course of the stent. Left nephrolithiasis. Possible right ureteral calculus. Electronically Signed: Beth Silva MD at 10:14 EDT ,
== END | disposition home or self-care (01) ==
PROVIDERS: PCP Internal Medicine; Referring Provider Urology; Visit Provider Urology
DX: N20.0 Calculus of kidney (principal)
CPT/HCPCS: 74018

== ENCOUNTER 2023-07-31 10:43 | Day surgery (SDC) | payer OTHER, SELFPAY ==
[2023-07-31] VITALS (7 sets, daily range): BP systolic 149–185; BP diastolic 91–110; PULSE 76–91; RESP 16–18; TEMP 36–36.8; O2SAT 95–98; BMI 31.8
[2023-07-31] MEDS: Lactated Ringers 1,000 ML 15 ML IV (11:15)
[2023-07-31] MEDS: Cefazolin 2 GM in 0.9% Normal Saline (100mL Bag) 100 ML IV (11:44)
[2023-07-31 11:57] LABS: Internal QC Validated? YES +Cl - CLEAR BKGD; Pregnancy, Urine Negative Negative
--- NOTE | 2023-07-31 12:20 | CALC_PTH ---
PATIENT: YADIRA QUEZADA LOC: [facility] [place] U#:[id number] AGE/SX: 48/F ROOM: RE07/31/[address]: Dr. Mable Nash MD : 1975 BED: DIS: 07/31/2023 SPEC #: [id number] RECD: 07/31/23 13:43 STATUS: ALAN VICK #: [id number] HARDEEP: 07/31/23 12:[address]: Mable Nash DEPT: SURGICAL PATHOLOGY RECD BY: Maegan Bonds ENTERED: 07/31/23 13:44 SP TYPE: Calculi OTHR DR: Dr. Dhara Johns MD Tissues: CALCULI Procedures: Surgery Specimen Level I HEADER OPERATION: Left ureteral ESWL, Cytoscopy, right retrograde pyelogram PRE-OP DIAGNOSIS: Kidney stone, Overactive bladder, Nocturia TISSUE SUBMITTED: Calculi, Urinary GROSS DIAGNOSIS Calculi, urinary: Fragments of stone, clinically urinary calculi (gross diagnosis). / 07/31/23 COMMENT The calculi are submitted in its entirety for chemical stone analysis. The results from this study will be reported separately. GROSS DESCRIPTION Received without fixative labeled with the patient's name and designated ureteral calculi. The specimen consists of a multiple fragment of west-brown stone measuring in aggregate 0.5 x 0.5 x 0.2 cm. The entire specimen is submitted for stone analysis. / 07/31/23 CPT: 79605
--- NOTE | 2023-07-31 12:43 | DCINST_ITS ---
Discharge Instructions Diet Discharge Diet: No restrictions Activity Discharge Activity: Return to Normal Activity Dressing / Incision Call your doctor if you observe: Fever of 101 or Higher, Inability to urinate and Inability to have a bowel movement Follow Up Care Please Follow Up With: Mable Nash MD When: I will see the patient in the office in 2 to 3 weeks with a KUB for cystoscopy and stent removal. The office will call her to set this up. Test Results: Test results from this visit will be discussed in further detail at your follow- up appointment, if applicable. Discharge Plan Admission Attending Provider: Mable Nash Primary Care Provider: Dhara Johns Discharge Orders/Prescriptions Prescriptions: New oxycodone-acetaminophen [Percocet] 5-325 mg tablet 1 tab PO Q8H PRN (Reason: pain) 3 Days Qty: 10 0RF cephalexin [cephalexin] 500 mg capsule 500 mg PO Q12 3 Days Qty: 6 0RF phenazopyridine [Pyridium] 200 mg tablet 200 mg PO TID PRN PRN (Reason: Bladder Spasms) 7 Days Qty: 30 0RF Continued docusate sodium [Colace] 100 mg capsule 100 mg PO BID Qty: 180 3RF vitamin B complex [B Complex-Vitamin B12] Tablet 1 tab PO DAILY cholecalciferol (vitamin D3) 125 mcg (5,000 unit) capsule 125 mcg PO DAILY cranberry extract 250 mg capsule 250 mg PO DAILY Rx Instructions: administer with a meal Immune Support Complex 75 mg tablet 2 tab PO DAILY ibuprofen-acetaminophen [Advil Dual Action] 125-250 mg tablet 1 tab PO Q8H PRN (Reason: pain) ondansetron 4 mg tablet,disintegrating 4 mg PO Q8H PRN PRN (Reason: Nausea) Qty: 10 0RF duloxetine [Cymbalta] 30 mg capsule,delayed release(DR/EC) 30 mg PO BID Qty: 180 3RF Referrals / Follow Up: Dhara Johns MD [Primary Care Provider] - Disposition Disposition (needs filled in before D/C Order can be placed): Home, Self Care
--- NOTE | 2023-07-31 12:45 | PCM.OPRPT ---
Report of Operation Date of Procedure: 07/31/23 Pre-Operative Diagnosis: Bilateral kidney stones, right abdominal pain Post-Operative Diagnosis: Right distal ureteral calculus, left ureteral and renal calculi Surgery/Procedure Performed:: Cystoscopy, right retrograde pyelogram, right ureteroscopy with holmium laser lithotripsy, stone basket extraction and right ureteral stent insertion, left ureteral and left renal extracorporal shockwave lithotripsy Surgeon: Mable Nash Type of Anesthesia: General Specimen's removed: Right distal ureteral calculus Description of Procedure: The patient is a 48-year-old female with a large left renal stone that had extracorporal shockwave lithotripsy a few weeks ago. She now presents for repeat as the stone burden was significantly decreased. In the preoperative area, she reported a new right-sided lower back and abdominal pain consistent with passing of a stone. The procedure was altered for evaluation of the right ureter. Informed consent was obtained. The patient was taken to the operating room and placed on the lithotripsy table. Anesthesia monitored the head, neck, airway, IV access and vital signs throughout the case. Once anesthesia was appropriately administered, the patient was placed into dorsolithotomy position and was prepped and draped in usual sterile fashion. The cystoscope was inserted through the urethra under direct visualization into the urinary bladder. Using an 8 Iranian cone-tip catheter, the right ureter was gently cannulated and contrast was injected in retrograde fashion revealing large distal ureteral filling defects. A 0.035 Glidewire was then passed through the orifice into the renal pelvis. A SlimLine ureteroscope was then utilized for access to the right distal ureteral calculus. The stone was broken into multiple small pieces which were removed moved and sent for analysis using a basket. After all fragments that were visible were removed, the safety wire was used for placement of a 4.5 Iranian by 20 cm JJ stent with good positioning in the renal pelvis as well as the urinary bladder. The patient was then repositioned on the table. Her left renal unit and ureter were identified using fluoroscopy. The stone burden that was at one time in her left kidney was now custodial distributed across the proximal ureter with some stone remaining within the the left kidney. Shocks were then applied to both the area of the left ureter(3000) and the left kidney(2000). The stones appeared to be well fragmented at the conclusion of the procedure. She was then awakened and taken to the recovery room in good condition. There were no complications during this procedure. Grafts/Implants Used: 4.5 Iranian by 20 cm JJ stent Complications None Admit VTE Documentation VTE Present on Admission: Yes VTE Mechan Device Prophylaxis: SCD's VTE Pharm Prophylaxis ordered?: No Reason prophylaxis not ordered:: Treatment Not Indicated
[2023-07-31] MEDS: oxyCODONE 5 MG Tablet 10 MG PO (15:02)
[2023-08-10 21:32] LABS: Source Not Provided
[2023-08-10 21:33] LABS: Size 2x2 mm
== END 2023-07-31 16:06 | disposition home or self-care (01) ==
LOC: SDC 10:44 → AC 10:45
PROVIDERS: PCP Internal Medicine; Referring Provider Urology; Visit Provider Urology
PROC: (CPT 50590; principal; 2023-07-31 12:10)
DX: N20.2 Calculus of kidney with calculus of ureter (principal)
CPT/HCPCS: 52356; 50590; 00873; 81025; 82360; 88300; J7120; J2405

== ENCOUNTER → 2023-08-15 | Outpatient (CLI) | payer OTHER, SELFPAY ==
--- NOTE | 2023-08-15 13:15 | RAD_ITS ---
HISTORY: KUB- KIDNEY STONE. TECHNIQUE: XR Abdomen 1 View. COMPARISON: 07/02/2023. FINDINGS: BOWEL GAS PATTERN: No dilated bowel loops identified. Scattered stool in the colon. FREE AIR: Not assessed on supine view. CALCIFICATIONS: 2 to 3 mm left upper pole renal calculi. Decreased number of left lower pole calculi. Left ureteral stent with three 3-4 mm proximal ureteral and tandem mid ureteral calculi. Interval placement of right ureteral stent with a 3 mm ureterovesical junction calculus noted. BONES: Unremarkable. RAD/Abdomen Single View IMPRESSION: Bilateral ureteral stents with calculi along the course of the stents. Left nephrolithiasis. Electronically Signed: Beth Silva MD at 11:34 EDT ,
== END | disposition home or self-care (01) ==
LOC: MTRAD 13:14
PROVIDERS: PCP Internal Medicine; Referring Provider Urology; Visit Provider Urology
DX: N20.0 Calculus of kidney (principal)
CPT/HCPCS: 74018

== ENCOUNTER → 2023-08-25 | Outpatient (CLI) | payer OTHER, SELFPAY ==
--- NOTE | 2023-08-25 13:30 | RAD_ITS ---
INDICATION: STONES EXAMINATION/TECHNIQUE: X-RAY - XR Abdomen 1 View COMPARISON: 08/15/2023 FINDINGS: BOWEL GAS PATTERN: Non-obstructive. No bowel or stomach distention. FREE AIR: Not assessed on a single supine view. ORGANOMEGALY: Not seen. CALCIFICATIONS: Bilateral nephroureteral stents with left-sided renal and ureteral stones, similar in number and size when compared to most recent prior on 08/15/2023.. LOWER CHEST: No acute pathology. BONES AND SOFT TISSUES: No acute pathology. RAD/Abdomen Single View IMPRESSION: Bilateral nephroureteral stents with left-sided renal and ureteral stones, similar in number and size when compared to most recent prior on 08/15/2023. Electronically Signed: Pastor Philippe MD at 16:35 EDT ,
== END | disposition home or self-care (01) ==
PROVIDERS: PCP Internal Medicine; Referring Provider Urology; Visit Provider Urology
DX: N20.0 Calculus of kidney (principal)
CPT/HCPCS: 74018

== ENCOUNTER 2023-09-04 08:45 | Day surgery (SDC) | payer OTHER, SELFPAY ==
[2023-09-04] VITALS (8 sets, daily range): BP systolic 149–167; BP diastolic 95–100; PULSE 78–84; RESP 16; TEMP 36.1–36.5; O2SAT 93–100; BMI 31.8
[2023-09-04 09:15] LABS: Internal QC Validated? YES +Cl - CLEAR BKGD
[2023-09-04 09:17] LABS: Pregnancy, Urine Negative Negative; Record Kit Lot#,Urine Preg HCG0000718089
[2023-09-04] MEDS: Lactated Ringers 1,000 ML 15 ML IV (09:30)
--- NOTE | 2023-09-04 10:10 | CALC_PTH ---
PATIENT: YADIRA QUEZADA LOC: [facility] [place] U#:[id number] AGE/SX: 48/F ROOM: RE09/04/[address]: Dr. Mable Nash MD : 1975 BED: DIS: 09/04/2023 SPEC #: [id number] RECD: 09/04/23 18:19 STATUS: ALAN VICK #: [id number] HARDEEP: 09/04/23 10:[address]: Mable Nash DEPT: SURGICAL PATHOLOGY RECD BY: Maegan Bonds ENTERED: 09/05/23 10:59 SP TYPE: Calculi OTHR DR: Dr. Dhara Johns MD Tissues: CALCULI Procedures: Surgery Specimen Level I HEADER OPERATION: Left urteroscopy, laser lithotripsy, stone basket extraction PRE-OP DIAGNOSIS: Kidney stones, ureteral calculi, overactive bladder TISSUE SUBMITTED: Left renal calculi GROSS DIAGNOSIS Left renal calculi, removal: Fragments of unremarkable calculi (gross diagnosis only). / 09/09/2023 COMMENT If chemical analysis is requested on this specimen, please notify the laboratory. GROSS DESCRIPTION Received without fixative labeled with the patient's name and designated ureteral calculi. The specimen consists of irregular fragments of light to dark west calculi measuring in aggregate 0.8 x 0.5 x 0.2cm. The entire specimen is submitted for stone analysis. The entire specimen is saved if stone analysis is requested. / 09/05/2023 CPT: 60961
[2023-09-04] MEDS: Cefazolin 2 GM in 0.9% Normal Saline (100mL Bag) 100 ML IV (11:35)
--- NOTE | 2023-09-04 12:58 | EX.PCM.DISCH ---
Discharge Instructions Diet Discharge Diet: No restrictions Activity Discharge Activity: Return to Normal Activity Dressing / Incision Call your doctor if you observe: Fever of 101 or Higher, Inability to urinate and Inability to have a bowel movement Follow Up Care Please Follow Up With: Mable Nash MD When: in 2-3 weeks. the office will call to make arrangements. Test Results: Test results from this visit will be discussed in further detail at your follow-up appointment, if applicable. Discharge Plan Admission Attending Provider: Mable Nash Primary Care Provider: Dhara Johns Instructions Print Language: Argentine Discharge Orders/Prescriptions Prescriptions: New oxycodone-acetaminophen [Percocet] 5-325 mg tablet 1 tab PO Q8H PRN (Reason: pain) 3 Days Qty: 10 0RF cephalexin 500 mg capsule 500 mg PO Q12 3 Days Qty: 6 0RF Continued docusate sodium [Colace] 100 mg capsule 100 mg PO BID Qty: 180 3RF vitamin B complex [B Complex-Vitamin B12] Tablet 1 tab PO DAILY cholecalciferol (vitamin D3) 125 mcg (5,000 unit) capsule 125 mcg PO DAILY cranberry extract 250 mg capsule 250 mg PO DAILY Rx Instructions: administer with a meal Immune Support Complex 75 mg tablet 2 tab PO DAILY ibuprofen-acetaminophen [Advil Dual Action] 125-250 mg tablet 1 tab PO Q8H PRN (Reason: pain) ondansetron 4 mg tablet,disintegrating 4 mg PO Q8H PRN PRN (Reason: Nausea) Qty: 10 0RF phenazopyridine [Pyridium] 200 mg tablet 200 mg PO TID PRN PRN (Reason: Bladder Spasms) 7 Days Qty: 30 0RF duloxetine [Cymbalta] 30 mg capsule,delayed release(DR/EC) 30 mg PO BID Qty: 180 3RF Referrals / Follow Up: Dhara Johns MD [Primary Care Provider] - Disposition Disposition (needs filled in before D/C Order can be placed): Home, Self Care
--- NOTE | 2023-09-04 13:01 | PCM.OPRPT ---
Report of Operation Date of Procedure: 09/04/23 Pre-Operative Diagnosis: Bilateral kidney stones Post-Operative Diagnosis: Same and left ureteral stones Surgery/Procedure Performed:: Cystoscopy, right stent removal, left ureteroscopy, laser lithotripsy, stone basket extraction, left ureteral stent change Surgeon: Mable Nash Type of Anesthesia: General Specimen's removed: Stone fragments Description of Procedure: The patient is a 48-year-old female with a large left stone burden in the kidney following shockwave lithotripsy. She presents for removal of the remaining stone fragments. Consent was obtained. The patient was taken to the operating room and placed on the operating room table. Anesthesia monitored the head, neck, airway, IV access and vital signs throughout the case. Once anesthesia was appropriately administered, she was placed into dorsolithotomy position and was prepped and draped in usual sterile fashion. The cystoscope was inserted through the urethra under direct visualization into the urinary bladder. The right ureteral stent was observed and removed without difficulty. The left ureteral stent was removed with a small amount of difficulty and at this time it was obvious that the stone burden had fallen down into the proximal and mid left ureter. A 0.035 Glidewire was then passed into the renal pelvis. Flexible and semirigid ureteroscope's were both utilized for laser removal of the multiple stone fragments within the left ureter and renal pelvis. Multiple fragments were removed with the basket and placed into the urinary bladder. The ureter began to become edematous and the decision was made to leave the remaining small fragments to pass on their own. The flexible ureteroscope was then utilized to remove the ureteral access sheath under direct visualization. There is no injury to the ureter identified. The safety wire was used to place a 6 Beninese 20 cm JJ stent with good positioning in the renal pelvis as well as the urinary bladder. Her bladder was then emptied and the cystoscope was removed. She was awakened and taken to the recovery room in good condition. There were no complications during this procedure. Grafts/Implants Used: 6 Beninese 20 cm JJ stent Complications None Admit VTE Documentation VTE Present on Admission: Yes VTE Mechan Device Prophylaxis: SCD's VTE Pharm Prophylaxis ordered?: No Reason prophylaxis not ordered:: Treatment Not Indicated
== END 2023-09-04 14:31 | disposition home or self-care (01) ==
LOC: SDC 08:45 → AC 08:46
PROVIDERS: PCP Internal Medicine; Referring Provider Urology; Visit Provider Urology
PROC: 0TJ98ZZ Inspection of Ureter, Via Natural or Artificial Opening Endoscopic (ICD-10-PCS; CPT 52352; principal; 2023-09-04 10:00)
DX: N20.2 Calculus of kidney with calculus of ureter (principal); I10 Essential (primary) hypertension; N32.81 Overactive bladder; F32.A Depression, unspecified; Z79.899 Other long term (current) drug therapy
CPT/HCPCS: 52356; 00918; 76000; 81025; 82360; 88300; J7120; J2405

== ENCOUNTER → 2023-09-25 | Outpatient (CLI) | payer OTHER, SELFPAY ==
[2023-09-25 08:17] LABS: Absolute Lymphocyte Count 2.43 X10^3/uL (0.83-4.51); Basophil# 0.04 X10^3/uL; Basophil% 0.6 % (0-1); Eosinophil# 0.17 X10^3/uL; Eosinophils% 2.4 % (0-5); Hematocrit 43.3 % (37-47); Lymphocyte # 2.43 X10^3/ul (0.83-4.51); Lymphocyte % 34.2 % (19-41); Mean Corp Hgb Conc 32.3 g/dL (32-36); Mean Corpuscular Hgb 28.1 pg (27.0-32.0); Mean Corpuscular Volume 86.8 fL (81-99); Mean Platelet Vol. 10.6 fl (6.2-12.0); Monocyte# 0.48 X10^3/uL; Monocyte% 6.8 % (0-10); NRBC Flagged by Analyzer 0 % (0-5); Neutrophil # 3.96 X10^3/uL (2.7-7.7); Neutrophil % 55.7 % (47-70); Platelet Count 386 K/mm3 (150-450); RBC Distribution Width CV 14.6 % (11.6-14.6); RBC Distribution Width SD 45.5 fl (35.1-43.9); Red Blood Count 4.99 M/mm3 (4.2-5.4); White Blood Count 7.1 K/mm3 (4.4-11.0)
[2023-09-25 08:37] LABS: Vitamin D,25 Hydroxy 32.5 ng/mL
[2023-09-25 10:30] LABS: ALB/GLOB Ratio 0.9 RATIO (0.9-2.4); AST(SGOT) 61 U/L (15-37); Alanine Aminotransfer ALT/SGPT 86 U/L (13-56); Albumin, Serum 3.6 g/dL (3.2-5.0); Alkaline Phosphatase 94 U/L (45-117); Anion Gap 6 (5-15); BUN 11 mg/dL (7-18); BUN/Creat Ratio 14.9 RATIO (10-20); Calcium,Total 9.2 mg/dL (8.5-10.1); Chloride 106 mmol/L (98-107); Cholesterol 278 mg/dL (200); Creatinine, Serum 0.74 mg/dL (0.55-1.02); EST Glomerular Filtration Rate 89 mL/min (>60); Est Glom Filt Rate - Afr Amer 107 mL/min (>60); Globulin 4.2 g/dL (2.2-4.2); Glucose 108 mg/dL (74-106); Iron Binding Capacity,Total 389 ug/dL (250-450); Potassium 3.7 mmol/L (3.5-5.1); Protein, Total 7.8 g/dL (6.4-8.2); Sodium Level 139 mmol/L (136-145); Triglycerides 114 mg/dL; Very Low Density Lipoprotein 23 mg/dL (5-40)
[2023-09-25 19:48] LABS: High Density Lipoprotein 36 mg/dL
[2023-09-26 09:15] LABS: Vitamin B12 1328 pg/mL (211-911)
[2023-09-29 08:26] LABS: Iron 54 ug/dL (50-170)
== END | disposition home or self-care (01) ==
LOC: PAVLAB 08:03
PROVIDERS: PCP Internal Medicine; Referring Provider Internal Medicine; Visit Provider Internal Medicine
DX: E55.9 Vitamin D deficiency, unspecified (principal); E78.1 Pure hyperglyceridemia; D50.9 Iron deficiency anemia, unspecified
CPT/HCPCS: 36415; 80053; 80061; 82306; 82607; 83540; 83550; 85025

== ENCOUNTER 2023-12-05 08:35 | Day surgery (SDC) | payer OTHER, SELFPAY ==
[2023-12-05] VITALS (9 sets, daily range): BP systolic 109–143; BP diastolic 80–93; PULSE 61–72; RESP 16–18; TEMP 36–36.8; O2SAT 93–98
[2023-12-05 08:55] LABS: Internal QC Validated? YES +Cl - CLEAR BKGD; Pregnancy, Urine Negative Negative
[2023-12-05] MEDS: Lactated Ringers 1,000 ML 15 ML IV (08:57)
--- NOTE | 2023-12-05 09:19 | HP.PCM_ITS ---
HPI - General HPI Narrative YADIRA QUEZADA, is a 48 F who presents for screening colonoscopy. Patient has never had a colonoscopy in the past. She denies abdominal pain or blood in the stool. No family history of colon cancer. [facility] Medical History (Updated 12/03/23 @ 09:51 by Catherine Babcock) History of kidney stones Left renal stone Alcohol use History of pain when walking Hx of fracture of ankle Loss of hearing Wears contact lenses Wears glasses Anxiety Anemia Easy bruising Restless legs Syncope Non-smoker Hypertension Endometrial polyp Fracture of medial malleolus, right, closed Right ankle pain History of PCOS Heavy menstrual bleeding Home Medications ?Medication ?Instructions ?Recorded ?Last Taken ?Type cholecalciferol (vitamin D3) 125 125 mcg PO DAILY 03/21/21 12/03/23 History mcg (5,000 unit) capsule cranberry extract 250 mg capsule 250 mg PO DAILY 03/21/21 12/03/23 History vit U-htfy-Lryop ginseng-herbal 2 tab PO DAILY 03/21/21 12/03/23 History complex no.62 75 mg tablet (Immune Support Complex) vitamin B complex (B 1 tab PO DAILY 03/21/21 12/03/23 History Complex-Vitamin B12 tablet) docusate sodium 100 mg capsule 100 mg PO BID #180 caps 03/28/21 12/03/23 Rx (Colace) duloxetine 30 mg capsule,delayed 30 mg PO BID #180 caps 09/25/23 12/03/23 Rx release (Cymbalta) epinephrine 0.3 mg/0.3 mL 0.3 mg IM Q5-15M PRN anaphylaxis 10/15/23 Unknown History injection, auto-injector (EpiPen 2-Malachi) ferrous sulfate 325 mg (65 mg 325 mg PO QDAY 12/03/23 Unknown History iron) tablet (Feosol) Allergy/AdvReac Type Severity Reaction Status Date / Time bee venom protein (honey bee) Allergy Severe Anaphylaxis Verified 12/05/23 08:49 meloxicam (From Mobic) Allergy Severe Fainting, Verified 12/05/23 08:49 Cognitive decline Family History Other CVA (cerebral vascular accident) Cancer Diabetes Heart disease Myocardial infarction Surgical History (Updated 12/03/23 @ 09:51 by Catherine Babcock) History of cystoscopy History of endometrial ablation H/O dilation and curettage History of hysteroscopy History of bunionectomy of both great toes History of renal stent S/P appendectomy Social History household members: spouse and children number of children: 4 current occupational status: employed 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 Smoking Status: Never smoker alcohol intake: current alcohol intake frequency: a few times a month Alcohol type: wine substance use type: does not use seatbelt use: always do you feel safe at home: Yes additional social history: - Kody Past Medical/Surgical History Planned Operation Planned Operative Procedure(s): cscope Previous Hospitalizations/Surgeries HX Hospitalizations: Yes (KIDNEY STONES) HX of Surgeries: bunion, kidney stent placement, appendectomy, anemia, ablation of uterus Any Problems With Anesthesia: No You/Your Family Experience Fever (Hyperthermia) With Anes: No Cholinesterase deficiency: No Cardiovascular Hx Hypertension: No Respiratory Hx Sleep Apnea: No Hx Respiratory Tract Infection/Cold (presently): No Do You Snore Loudly (louder than talking or can be heard): No Do You Often Feel Tired/ Fatigued/ Sleepy Dring Daytime?: No Has Anyone Observed You Stop Breathing During Sleep?: No Result (for STOP score): Negative Smoking Status: Never smoker Neurological Hx Seizures: No Does patient have nerve stimulator: No Genitourinary Hx Renal Disease: Yes (kidney stones) Endocrine Hx Diabetes: No Miscellaneous Hx Cancer: No Recent Exposure to Contagious Disease: No Allergies bee venom protein (honey bee) Allergy (Severe, Verified 12/05/23 08:49) Anaphylaxis meloxicam (From Mobic) Allergy (Severe, Verified 12/05/23 08:49) Fainting, Cognitive decline Discharge Is Pt Admitted From a [facility], or a Correction: No After D/C, Where Do you Plan to Go: Return Home Vital Signs Vital Signs Vital Signs: 12/05/23 08:58 12/05/23 08:58 Temperature 97.1 F L Temperature Source Temporal Pulse Rate 72 Respiratory Rate 18 Respiratory Pattern Normal Blood Pressure 143/93 H Blood Pressure Mean 109 Blood Pressure Source Monitor Blood Pressure Position Semi-Fowlers Blood Pressure Location Left Arm Pulse Ox 98 Oxygen Delivery Method Room Air Weight Weight: 154 lb Body Mass Index (BMI) 30.0 Physical Exam Const alert and oriented x3 HEENT normocephalic Eyes PERRL Resp normal respiratory effort and normal air movement Cardio regular rate and regular rhythm GI soft to palpation, non-tender and non-distended Extremity normal to inspection Assessment & Plan Assessment/Plan (1) Colon cancer screening: PLAN: I explained endoscopy in detail to the patient. I explained the risks including but not limited to stroke or heart attack with anesthesia, perforation of the GI tract, bleeding, infection. I explained that any of these could necessitate further emergency surgery. The patient understands and all questions were answered sufficiently. The patient wishes to proceed with procedure. Dharmesh Oglesby MD Pager: [facility] [address] [place] [address] [address] [place] [address] Office: Surgery Risks - Colonoscopy Risks Include but are not Limited To: Risks include but are not limited to: Bleeding, perforation requiring further surgery, inability to complete colonoscopy requiring barium enema.
--- NOTE | 2023-12-05 09:24 | PRE.ANES_ITS ---
ASA Classification* ASA Classification ASA Classification: 2 Assessment & Plan Anesthesia* Anesthesia Assessment Anesthesia Assessment: Discussed sedation and/or anesthesia options, risks, benefits, and alternatives with patient/parents/legal guardian/POA. Questions invited. The patient/parents/legal guardian/POA seems to understand and agrees to proceed with anesthesia plan. Reviewed the physical assessment, medical history, allergy history and patient home medications list prior to surgery/procedure/anesthetic and documented any changes. Performed airway and anesthesia risk assessments. Anesthesia Type Anesthesia Type: MAC History Source History Obtained from:: Patient and Chart Anesthesia Focused Assessment* Temperature: 97.1 F Pulse Rate: 72 Blood Pressure: 143/93 Respiratory Rate: 18 Pulse Ox: 98 Oxygen Delivery Method: Room Air Airway Assessment Mouth opens: 2 cm Mallampati Score: III Neck Range of motion (ROM): Full ROM Focused Labs Anesthesia Preop lab: CBC WBC 7.1 K/mm3 (4.4-11.0) 09/25/23 08:05 RBC 4.99 M/mm3 (4.2-5.4) 09/25/23 08:05 Hgb 14.0 g/dL (12.0-15.0) 09/25/23 08:05 Hct 43.3 % (37-47) 09/25/23 08:05 Plt Count 386 K/mm3 (150-450) 09/25/23 08:05 CHEMISTRY Potassium 3.7 mmol/L (3.5-5.1) 09/25/23 08:05 Sodium 139 mmol/L (136-145) 09/25/23 08:05 BUN 11 mg/dL (7-18) 09/25/23 08:05 Creatinine 0.74 mg/dL (0.55-1.02) 09/25/23 08:05 Glucose 108 mg/dL (74-106) H 09/25/23 08:05 TSH 1.62 uIU/mL (0.358-3.74) 05/21/22 09:08 COAG Urine Test Negative Negative 12/05/23 08:37 Pre-Assessment Diagnosis/Proposed Procedure Planned Operative Procedure(s): cscope Anesthesia History Anesthesia History - criminal defense lawyer: Anesthesia History - criminal defense lawyer Hx Hospitalization Yes: KIDNEY STONES 12/05/23 09:20 Any Problems With Anesthesia No 12/05/23 09:20 Cholinesterase deficiency No 12/05/23 09:20 You/Your Family Experience No 12/05/23 09:20 fever (hyperthermia) with Relationship Recent Exposure to Contagious No 12/05/23 09:20 Disease Does patient have nerve No 12/05/23 09:20 stimulator Patient instructed to have device shut off --Does patient have Pacemaker No 12/05/23 08:58 or ICD? When Was Last Pacemaker Check QUESTION #4 FULL TEXT: You/Your Family Experience fever (hyperthermia) with Anesthesia Last Oral Intake Last Oral intake: Last Oral Intake NPO since 00:00 12/05/23 08:58 Meds taken in AM with sips of No 12/05/23 08:58 water? Meds patient instructed to take am of surgery Any additional information?: Yes NPO since: 05:30 Meds patient instructed to take am of surgery: Patient finished prep at 530. PONV PONV - criminal defense lawyer: PONV - criminal defense lawyer Female Yes 12/03/23 09:49 HX of Motion Sickness Yes 12/03/23 09:49 HX of N/V After Surgery No 12/03/23 09:49 Non-Smoker Yes 12/03/23 09:49 Duration of Surgery greater No 12/03/23 09:49 than 60 minutes Number of Risk Factors 3 12/03/23 09:49 PONV Score Moderate Risk 12/03/23 09:49 Height & Weight Height & Weight: Anesthesia: Height & Weight Height 5 ft 12/05/23 08:58 Weight: 69.853 kg 12/05/23 08:58 Body Mass Index (BMI) 30.0 12/05/23 08:58 Respiratory Assessment Respiratory Assessment - criminal defense lawyer: Respiratory Tract Infection Hx - criminal defense lawyer Hx Respiratory Tract Infection No 12/05/23 09:20 STOP Sleep Apnea STOP Sleep Apnea - criminal defense lawyer: STOP Sleep Apnea - criminal defense lawyer Hx Hypertension No 12/05/23 09:20 Hx Sleep Apnea No 12/05/23 09:20 CPAP BIPAP Do you snore loudly (louder No 12/05/23 09:20 than talking or can be heard Do you often feel tired/ No 12/05/23 09:20 fatigued/ sleepy during daytime? Has anyone observed you stop No 12/05/23 09:20 breathing during sleep? STOP Results Negative 12/05/23 09:20 QUESTION #5 FULL TEXT : Do you snore loudly (louder than talking or can be heard through closed doors)? 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 Specify any problems Hx of Preganancy in last 3 N/A 12/03/23 09:49 Months Nurse Filling Out Transfusion NBUCHER 12/03/23 09:49 & Questions: Date: 12/03/23 12/03/23 09:49 Time: 09:49 12/03/23 09:49 Patient unable to answer at this time (ie. confused, unrespo /Reproduction History /Reproductive History - criminal defense lawyer: /Reproductive Hx- criminal defense lawyer Hx Now Gestational Age (in weeks): EDC: Hx Hx Para Hx Section SAB No 12/03/23 09:49 Active Medications Active Medications: Current Medications Generic Name Dose Route Start Last Admin Trade Name Freq PRN Reason Stop Dose Admin Lactated Ringer's 1,000 mls @ 15 mls/hr 12/05/23 08:45 12/05/23 08:57 IV 15 mls/hr .Q48H CHOCO Administration PFSH Medical History (Updated 12/03/23 @ 09:51 by Catherine Babcock) History of kidney stones Left renal stone Alcohol use History of pain when walking Hx of fracture of ankle Loss of hearing Wears contact lenses Wears glasses Anxiety Anemia Easy bruising Restless legs Syncope Non-smoker Hypertension Endometrial polyp Fracture of medial malleolus, right, closed Right ankle pain History of PCOS Heavy menstrual bleeding Home Medications ?Medication ?Instructions ?Recorded ?Last Taken ?Type cholecalciferol (vitamin D3) 125 125 mcg PO DAILY 03/21/21 12/03/23 History mcg (5,000 unit) capsule cranberry extract 250 mg capsule 250 mg PO DAILY 03/21/21 12/03/23 History vit B-dnvd-Vcvew ginseng-herbal 2 tab PO DAILY 03/21/21 12/03/23 History complex no.62 75 mg tablet (Immune Support Complex) vitamin B complex (B 1 tab PO DAILY 03/21/21 12/03/23 History Complex-Vitamin B12 tablet) docusate sodium 100 mg capsule 100 mg PO BID #180 caps 03/28/21 12/03/23 Rx (Colace) duloxetine 30 mg capsule,delayed 30 mg PO BID #180 caps 09/25/23 12/03/23 Rx release (Cymbalta) epinephrine 0.3 mg/0.3 mL 0.3 mg IM Q5-15M PRN anaphylaxis 10/15/23 Unknown History injection, auto-injector (EpiPen 2-Malachi) ferrous sulfate 325 mg (65 mg 325 mg PO QDAY 12/03/23 Unknown History iron) tablet (Feosol) Allergy/AdvReac Type Severity Reaction Status Date / Time bee venom protein (honey bee) Allergy Severe Anaphylaxis Verified 12/05/23 08:49 meloxicam (From Mobic) Allergy Severe Fainting, Verified 12/05/23 08:49 Cognitive decline Family History Other CVA (cerebral vascular accident) Cancer Diabetes Heart disease Myocardial infarction Surgical History (Updated 12/03/23 @ 09:51 by Catherine Babcock) History of cystoscopy History of endometrial ablation H/O dilation and curettage History of hysteroscopy History of bunionectomy of both great toes History of renal stent S/P appendectomy Social History household members: spouse and children number of children: 4 current occupational status: employed 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
--- NOTE | 2023-12-05 09:54 | OP.COLON_ITS ---
Patient Name: Chasity Rosario Procedure Date: 12/05/2023 9:27 AM Date of : 1975 Age: 48 Procedure: Colonoscopy Indications: Screening for colorectal malignant neoplasm Providers: Dharmesh Oglesby MD Medicines: Propofol per Anesthesia Patient Profile: This is a 48 year old female. Refer to note in patient chart for documentation of history and physical. Last Colonoscopy: none. The patient's first colonoscopy is today. Complications: No immediate complications. Procedure: Pre-Anesthesia Assessment: - Prior to the procedure, a History and Physical was performed, and patient medications and allergies were reviewed. The patient's tolerance of previous anesthesia was also reviewed. The risks and benefits of the procedure and the sedation options and risks were discussed with the patient. All questions were answered, and informed consent was obtained. Prior Anticoagulants: The patient has taken no anticoagulant or antiplatelet agents. After reviewing the risks and benefits, the patient was deemed in satisfactory condition to undergo the procedure. After I obtained informed consent, the scope was passed under direct vision. Throughout the procedure, the patient's blood pressure, pulse, and oxygen saturations were monitored continuously. The colonoscope was introduced through the anus and advanced to the cecum, identified by appendiceal orifice and ileocecal valve. The colonoscopy was performed without difficulty. The patient tolerated the procedure well. The quality of the bowel preparation was good. The ileocecal valve, appendiceal orifice, and rectum were photographed. Scope In: 9:38:43 AM Scope Withdrawal Time 0 hours 5 minutes 31 seconds Scope Out: 9:51:03 AM Total Procedure Duration Time 0 hours 12 minutes 20 seconds Findings: The entire examined colon appeared normal on direct and retroflexion views. Impression: - The entire examined colon is normal on direct and retroflexion views. - No specimens collected. Recommendation: - Discharge patient to home. - Resume previous diet. - Continue present medications. - Repeat colonoscopy in 10 years for screening purposes. Procedure Code(s): --- Professional --- 66859, Colonoscopy, flexible; diagnostic, including collection of specimen(s) by brushing or washing, when performed (separate procedure) Diagnosis Code(s): --- Professional --- Z12.11, Encounter for screening for malignant neoplasm of colon CPT copyright 2021 [employer]. All rights reserved. The codes documented in this report are preliminary and upon box blank machine feeder review may be revised to meet current compliance requirements. Dharmesh Oglesby MD 12/05/2023 9:54:24 AM This report has been signed electronically. Number of Addenda: 0 Note Initiated On: 12/05/2023 9:27 AM
--- NOTE | 2023-12-05 09:55 | OP.CCLET_ITS ---
12/05/2023 Dhara Johns [facility] [address] [place] [address] Re : Colonoscopy procedure for Chasity Rosario Dear Dr. Johns This procedure was performed on Tuesday, December 05, 2023. My impressions and recommendations are as follows: Impressions : - The entire examined colon is normal on direct and retroflexion views. - No specimens collected. Recommendations : - Discharge patient to home. - Resume previous diet. - Continue present medications. - Repeat colonoscopy in 10 years for screening purposes. My findings are described in the full procedure note, which is enclosed. If I can be of further assistance, please feel free to contact me at Doctor phone number(s): , Work: . Sincerely, Dharmesh Oglesby MD 12/05/2023 9:54:24 AM This report has been signed electronically.
--- NOTE | 2023-12-05 09:58 | PCM.POST.ANE ---
Anesthesia: Postop Eval I Current Vital Signs Temperature: 97 F Pulse Rate: 68 Blood Pressure: 109/80 Respiratory Rate: 16 Pulse Ox: 94 Oxygen Delivery Method: Room Air Assessment Airway patent: Yes Spontaneous unlabored respirations: Yes Mental status: Asleep nausea: No Vomiting: No Anesthesia Complication: No Fluid Hydration Crystalloid volume administer (ml): 500 Total IV fluid infused: 500 Progress Note Anesthesia document: Postop Eval 1 completed: Yes
== END 2023-12-05 10:43 | disposition home or self-care (01) ==
LOC: EN 08:36 → AC 08:36
PROVIDERS: Anesthesiology; PCP Internal Medicine; Referring Provider Internal Medicine; Visit Provider Surgery
PROC: 0DJD8ZZ Inspection of Lower Intestinal Tract, Via Natural or Artificial Opening Endoscopic (ICD-10-PCS; CPT 45378; principal; 2023-12-05 09:25)
DX: Z12.11 Encounter for screening for malignant neoplasm of colon (principal); I10 Essential (primary) hypertension; F32.A Depression, unspecified; Z79.899 Other long term (current) drug therapy
CPT/HCPCS: G0121; 81025; J7120; J2405

== ENCOUNTER → 2023-12-19 | Outpatient (CLI) | payer OTHER, SELFPAY ==
--- NOTE | 2023-12-19 08:47 | BI_ITS ---
MAMMOGRAPHY - BILATERAL SCREENING REASON FOR EXAM: Female, 48 years old. Routine annual screening examination. PERTINENT HISTORY: Non-contributory. TECHNIQUE: Digital bilateral breast victoria (3D mammographic acquisition) in the CC and MLO projections. 2-D mediolateral oblique (MLO) and craniocaudad (CC) views of both breasts were obtained. CAD: Full Field Digital Mammography with Computer Added Detection was performed. COMPARISON: Comparison is made with prior study November 13, 2022. FINDINGS: Breast Composition: There are scattered areas of fibroglandular density. There are no dominant masses or suspicious calcifications. Stable small benign-appearing bilateral axillary lymph nodes. No other significant abnormalities are identified. There has been no significant change since the prior study. BI/SCRN MAMM (CAD)W/VICTORIA BILAT IMPRESSION: Stable bilateral screening mammogram. Yearly follow-up mammogram recommended. (A) ASSESSMENT CATEGORY: BIRADS Category 2: Benign. A letter regarding these results will be sent to the patient by the facility within 30 days. Approximately 10% of breast cancers are not detected by mammography. A normal mammogram should not delay biopsy of a clinically suspicious abnormality. [id number] Electronically Signed: Jamal Frederick MD at 9:29 EDT ,
== END | disposition home or self-care (01) ==
LOC: OPBI 08:47
PROVIDERS: PCP Internal Medicine; Referring Provider Internal Medicine; Visit Provider Internal Medicine
DX: Z12.31 Encounter for screening mammogram for malignant neoplasm of breast (principal)
CPT/HCPCS: 77063; 77067

== ENCOUNTER → 2023-12-23 | Outpatient (CLI) | payer OTHER, SELFPAY ==
--- NOTE | 2023-12-23 13:04 | RAD_ITS ---
STUDY: X-RAY - LEFT ANKLE REASON FOR EXAM: Female, 48 years old. Pain and swelling TECHNIQUE: view(s) of the ankle. COMPARISON: None. FINDINGS: Normal visualized distal tibia and fibula. Normal medial and lateral malleoli. Normal tibiotalar articulation and ankle mortise. Normal visualized talus and calcaneus. The visualized subtalar, talonavicular, calcaneocuboid and tarsal articulations are normal. Lateral soft tissue swelling suggests ankle sprain RAD/Ankle min 3 Views IMPRESSION: No demonstrated fracture or ankle mortise abnormality. Lateral soft tissue swelling suggests ankle sprain Electronically Signed: Michi Dodge MD at 13:52 EDT ,
== END | disposition home or self-care (01) ==
LOC: MTRAD 13:04
PROVIDERS: PCP Internal Medicine; Referring Provider Physician Assistant; Visit Provider Physician Assistant
DX: S93.402A Sprain of unspecified ligament of left ankle, initial encounter (principal)
CPT/HCPCS: 73610

== ENCOUNTER 2024-01-22 00:48 | Emergency (ER) | payer OTHER, SELFPAY ==
[2024-01-22 00:49] VITALS: BP 193/103; PULSE 66; RESP 16; TEMP 36.6; O2SAT 100; BMI 31.0
--- NOTE | 2024-01-22 01:07 | CT_ITS ---
EXAM: CT ABDOMEN AND PELVIS WITH INTRAVENOUS CONTRAST CLINICAL INDICATION: abd pain history of kidney stones, appendectomy, endometrial ablation, kidney stent and lithotripsy. TECHNIQUE: Helically acquired images were obtained of the abdomen and pelvis with intravenous contrast. This CT exam was performed using one or more of the following dose reduction techniques: automated exposure control, adjustment of the mA and/or kV according to patient size, and/or use of iterative reconstruction technique. CONTRAST: IV 100mL Isovue-370 RADIATION DOSE: Total DLP: 1066.50 mGy-cm. COMPARISON: Abdomen pelvis CT of 04/25/2023. FINDINGS: LOWER THORAX: Incidental dependent atelectasis at the lung bases. No significant pericardial effusion. ABDOMEN: LIVER: Mild fatty infiltration of the liver. 3 small simple hepatic cysts are incidentally noted. Portal veins enhance normally. GALLBLADDER AND BILE DUCTS: Gallbladder is upper normal in size. No calcified gallstones, wall thickening or pericholecystic stranding. No biliary ductal dilatation. PANCREAS: Unremarkable. No focal cystic or solid mass. SPLEEN: Unremarkable. Normal size without focal cystic or solid mass. ADRENALS: Unremarkable. No nodules. KIDNEYS AND URETERS: Left kidney is asymmetrically enlarged and edematous with moderately severe hydronephrosis. Asymmetric perirenal stranding and minimal perirenal fluid also noted on the left. Proximal third of the left ureter is dilated down to the level of an obstructing stone which lies at the junction of the proximal and middle thirds of the ureter, with this ureteral stone measuring approximately 5 x 2.5 mm in diameter. There is enhancement of the ureteral wall proximal to the level of the stone, kidney due to inflammation from recent passage of the ureteral stone versus ureteritis. No findings of pyelonephritis. 3 mm nonobstructing stone noted within the pole collecting system of the left kidney. The right kidney is unremarkable. Note no right renal calculi are identified. STOMACH AND BOWEL: Unremarkable. No gastric mural thickening, periduodenal inflammatory changes or distended small bowel loops. No findings of small bowel obstruction, diverticulitis or colitis. PELVIS: APPENDIX: Previous appendectomy. BLADDER: Urinary bladder is unremarkable. The bladder wall is not thickened. REPRODUCTIVE: Unremarkable as visualized. No mass. ABDOMEN and PELVIS: INTRAPERITONEAL SPACE: Unremarkable. No ascites or other fluid collection. No free air. BONES/JOINTS: Unremarkable. No suspicious lytic or blastic abnormality. SOFT TISSUES: Minimal fat filled umbilical hernia. VASCULATURE: Abdominal aorta and its branches are mildly calcific. No AAA. SMA and SIA enhance normally. A tortuous varix is seen in the left paracolic region, draining superiorly into the spleen vein. LYMPH NODES: Unremarkable. No enlarged lymph nodes. CT/Abdomen/Pelvis W IV Cont ONLY IMPRESSION: Moderately severe left hydronephrosis due to a 5 x 2.5 mm stone which lies at the junction of proximal and middle thirds of the ureter. Electronically Signed: Paulo Jarrett MD at 2:47 EDT ,
--- NOTE | 2024-01-22 01:08 | EX.ED.DYSGE1 ---
HPI History of Present Illness Chief Complaint: Flank Pain Informant: patient and spouse/S.O. Narrative Narrative: Patient is a 48-year-old female with past medical history of PCOS and kidney stones. She states she was out at a [employer] this evening and ate while at the event and once she returned home approximately 2 hours later her granddaughter and she began having bouts of vomiting. Patient states that with the vomiting there was no blood or discoloration. She states she started approximately 10 times in the last few hours. She states she has generalized abdominal discomfort with this and then after multiple rounds of vomiting began feeling pain in her left back region. She states she does have a history of kidney stones and the pain she feels in her back is similar to her past episodes of kidney stone. However she states that she does not typically have abdominal pain or vomiting associated with her stones and because of the pain and variation of symptoms she presents for evaluation. [facility] Medical History Abrasion, right knee, initial encounter Abrasion of right elbow Left ankle sprain Right ankle sprain History of kidney stones Left renal stone Alcohol use History of pain when walking Hx of fracture of ankle Loss of hearing Wears contact lenses Wears glasses Anxiety Anemia Easy bruising Restless legs Syncope Non-smoker Hypertension Endometrial polyp Fracture of medial malleolus, right, closed Right ankle pain History of PCOS Heavy menstrual bleeding Home Medications ?Medication ?Instructions ?Recorded ?Last Taken ?Type cholecalciferol (vitamin D3) 125 125 mcg PO DAILY 03/21/21 12/03/23 History mcg (5,000 unit) capsule docusate sodium 100 mg capsule 100 mg PO BID #180 caps 03/28/21 12/03/23 Rx (Colace) duloxetine 30 mg capsule,delayed 30 mg PO BID #180 caps 09/25/23 12/03/23 Rx release (Cymbalta) epinephrine 0.3 mg/0.3 mL 0.3 mg IM Q5-15M PRN anaphylaxis 10/15/23 Unknown History injection, auto-injector (EpiPen 2-Malachi) cephalexin 500 mg capsule 500 mg PO TID 7 days #21 caps 01/22/24 Unknown Rx ketorolac 10 mg tablet 10 mg PO 4X/DAY PRN pain 5 days 01/22/24 Unknown Rx #20 tabs ondansetron 4 mg disintegrating 4 mg PO TID PRN nausea and 01/22/24 Unknown Rx tablet vomiting #21 tabs oxycodone-acetaminophen 5 mg-325 1 tab PO Q6H PRN pain 5 days #20 01/22/24 Unknown Rx mg tablet (Percocet) tabs tamsulosin 0.4 mg capsule (Flomax) 0.4 mg PO DAILY 14 days #14 caps 01/22/24 Unknown Rx Allergy/AdvReac Type Severity Reaction Status Date / Time bee venom protein (honey bee) Allergy Severe Anaphylaxis Verified 01/22/24 00:53 meloxicam (From Mobic) Allergy Severe Fainting, Verified 01/22/24 00:53 Cognitive decline Family History Other CVA (cerebral vascular accident) Cancer Diabetes Heart disease Myocardial infarction Surgical History History of cystoscopy History of endometrial ablation H/O dilation and curettage History of hysteroscopy History of bunionectomy of both great toes History of renal stent S/P appendectomy Social History household members: spouse and children number of children: 4 current occupational status: employed 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 Smoking Status: Never smoker alcohol intake: current alcohol intake frequency: a few times a month Alcohol type: wine substance use type: does not use seatbelt use: always do you feel safe at home: Yes additional social history: - Kody REGALADO SABINE ED Constitutional Constitutional ED: Denies chills or fever(s) Eyes Eyes: Denies blurry vision or change in vision ENT ENT ED: Denies sore throat Cardiovascular Cardiovascular: Denies chest pain Respiratory/Chest Respiratory/Chest: Denies cough or dyspnea Gastrointestinal Gastrointestinal: Reports abdominal pain, nausea and vomiting; Denies diarrhea Genitourinary Genitourinary ED: Reports urinary frequency; Denies dysuria or hematuria Musculoskeletal Musculoskeletal: Reports back pain Integumentary Denies rash Neurologic Neurologic: Denies headache(s) Psychiatric Psychiatric: Reports depression Hematologic/Lymphatic Hematologic/Lymphatic: Denies easy bleeding or easy bruising EXAM Physical Exam Const Vital Signs: 01/22/24 00:49 01/22/24 02:47 Temperature 97.8 F Temperature Source Oral Pulse Rate 66 95 Respiratory Rate 16 16 Blood Pressure 193/103 H 157/90 H Blood Pressure Mean 133 112 Pulse Ox 100 92 Oxygen Delivery Method Room Air Room Air Positive well nourished and well developed General Appearance ED: well developed; Negative for pallor HEENT Reports dry mucous membranes HEENT Narrative: Mucous membranes are dry and tacky No tongue or lip swelling no oral lesions no airway edema or compromise No secondary findings in the posterior pharynx to suggest infection Mouth ED: Yes dry mucous membranes Mouth: dry mucous membranes Eyes PERRL and EOMs intact bilaterally General Eye ED: Negative for scleral icterus Neck supple Resp normal respiratory effort and clear to auscultation bilaterally Cardio regular rate and regular rhythm Rate: other Other Details: Radial and carotid pulses are equal and symmetric Heart is regular rate and rhythm without murmurs rubs or gallops GI no masses GI Narrative: Abdomen has slight distention with mild diffuse pain with palpation. There is no obvious voluntary guarding or rigidity or pulsatile mass. No peritoneal signs. No fluid wave. Auscultation: hyperactive bowel sounds Palpation: soft Back/Spine Back/Spine Narrative: Positive left CVA pain noted Extremity normal to inspection Neuro oriented x3, CN's II-XII intact bilaterally and no sensory deficits noted Sensorium / Orientation: alert Motor Exam: strength 5/5 throughout Psych mental status grossly normal Skin no rashes or lesions noted, no wounds and No skin turgor normal Skin Narrative: Skin turgor is increased General Skin Exam: Negative for jaundice or pallor MDM MDM MDM Narrative Medical decision making narrative: Patient arrived to the ER hypertensive otherwise with stable vitals. She reported initially returning home from her [employer] and she had generalized abdominal discomfort with vomiting and a family member also had similar symptoms. Therefore there is concern that this could be related to a viral stomach infection such as Parker virus or rotavirus or potential colitis or food poisoning. However she then developed left-sided flank pain and reported blood in her urine and has known history of kidney stone. Therefore there is concern for kidney stone versus UTI versus pyelonephritis versus acute kidney injury. Basic labs were obtained and revealed no clinically significant findings. Patient's urine shows +2 bacteria but there is contamination with skin cells and no white blood cells and nitrites are negative. I do feel this is most likely contamination. However her CT scan does show a large 5 x 2.5 mm stone on the left with hydroureteronephrosis. Therefore we will send the urine for culture and place her on prophylactic antibiotics as she is at higher risk for infection. However at this time she does not have LISA or urosepsis and her pain is completely resolved after Toradol and Dilaudid. Therefore do not feel there is need for admission. Patient will be placed on symptomatic medications for home and will follow-up with her urologist to discuss further treatment options. History & Record Review Discussion w/independent historian: Patient and Significant other Lab Data Attestation: I reviewed the patient's lab results. Labs: Laboratory Results - last 24 hr 01/22/24 01/22/24 01:00 01:22 WBC 11.1 H RBC 5.60 H Hgb 16.3 H Hct 49.0 H MCV 87.5 MCH 29.1 MCHC 33.3 RDW Std Deviation 41.8 RDW Coeff of Wilmer 13.1 Plt Count 397 MPV 11.4 Immature Gran % (Auto) 0.300 Neut % (Auto) 48.8 Lymph % (Auto) 39.1 Vance % (Auto) 9.5 Eos % (Auto) 1.7 Baso % (Auto) 0.6 Absolute Neuts (auto) 5.4 Absolute Lymphs (auto) 4.34 Nucleated RBC % 0 Sodium 140 Potassium 3.4 L Chloride 103 Carbon Dioxide 30.0 Anion Gap 7 BUN 16 Creatinine 0.82 Estim Creat Clear Calc 72.74 Est GFR (MDRD) Af Amer 95 Est GFR (MDRD) Non-Af 79 BUN/Creatinine Ratio 19.6 Glucose 119 H Calcium 10.1 Total Bilirubin 0.40 Direct Bilirubin 0.12 AST 36 ALT 46 Alkaline Phosphatase 108 Total Protein 8.0 Albumin 3.8 Globulin 4.2 Lipase 68 Urine Color Yellow Urine Clarity Sl. Cloudy Urine pH 8.0 Ur Specific [place] 1.015 Urine Protein 30 H Urine Glucose (UA) Normal Urine Ketones Negative Urine Occult Blood Negative Urine Nitrite Negative Urine Bilirubin Negative Urine Urobilinogen Normal Ur Leukocyte Esterase Negative Urine RBC 0 SEEN Urine WBC 0 SEEN Ur Squamous Epith Cells 5-10 SEEN Amorphous Sediment 3+ Urine Bacteria 2+ Hyaline Casts 5-10 SEEN Fine Granular Casts 5-10 SEEN Urine Mucus 1+ Urine Test Negative Radiography Diagnostic Testing: Clinical Impression(s) from Imaging Studies Abdomen/Pelvis CT 01/22/24 01:07 IMPRESSION: Moderately severe left hydronephrosis due to a 5 x 2.5 mm stone which lies at the junction of proximal and middle thirds of the ureter. Electronically Signed: Paulo Jarrett MD at 2:47 EDT , Discharge Plan Triage Chief Complaint: Flank Pain ED Provider: Matt Leung Dx/Rx/DC Orders Clinical Impression: Kidney stone, Renal colic, Pure hypertriglyceridemia, History of PCOS, Depression, Hypertension Instructions: ED Kidney Stone with Pain Prescriptions: New oxycodone-acetaminophen [Percocet] 5-325 mg tablet 1 tab PO Q6H PRN (Reason: pain) 5 Days Qty: 20 0RF ketorolac 10 mg tablet 10 mg PO 4X/DAY PRN (Reason: pain) 5 Days Qty: 20 0RF ondansetron 4 mg tablet,disintegrating 4 mg PO TID PRN (Reason: nausea and vomiting) Qty: 21 0RF tamsulosin [Flomax] 0.4 mg capsule 0.4 mg PO DAILY 14 Days Qty: 14 0RF cephalexin 500 mg capsule 500 mg PO TID 7 Days Qty: 21 0RF No Action docusate sodium [Colace] 100 mg capsule 100 mg PO BID Qty: 180 3RF cholecalciferol (vitamin D3) 125 mcg (5,000 unit) capsule 125 mcg PO DAILY epinephrine [EpiPen 2-Malachi] 0.3 mg/0.3 mL auto-injector 0.3 mg IM Q5-15M PRN (Reason: anaphylaxis) Rx Instructions: do not exceed 3 doses per episode duloxetine [Cymbalta] 30 mg capsule,delayed release(DR/EC) 30 mg PO BID Qty: 180 3RF Stand Alone Forms: ED Work / School Excuse Primary Care Provider: Dhara Johns Referrals: Mable Nash MD [Med Staff - Active Staff] - Dhara Johns MD [Primary Care Provider] - Activity Restrictions/Additional Instructions: Please follow-up with your urologist for repeat evaluation as you may require lithotripsy in order to pass your kidney stone. Return to the ER if you have intractable pain despite taking your medication or you develop a fever over 100.4 or you have any further concerns. Print Language: Italian Disposition Disposition: Home, Self Care
[2024-01-22 01:17] LABS: Absolute Lymphocyte Count 4.34 X10^3/uL (0.83-4.51); Absolute Neutrophil Count 5.4 X10^3/uL (2.0-7.7); Basophil# 0.07 X10^3/uL; Basophil% 0.6 % (0-1); Eosinophil# 0.19 X10^3/uL; Eosinophils% 1.7 % (0-5); Hemoglobin 16.3 g/dL (12.0-15.0); Lymphocyte # 4.34 X10^3/ul (0.83-4.51); Lymphocyte % 39.1 % (19-41); Mean Corp Hgb Conc 33.3 g/dL (32-36); Mean Corpuscular Hgb 29.1 pg (27.0-32.0); Mean Corpuscular Volume 87.5 fL (81-99); Mean Platelet Vol. 11.4 fl (6.2-12.0); Monocyte# 1.06 X10^3/uL; Monocyte% 9.5 % (0-10); NRBC Flagged by Analyzer 0 % (0-5); Neutrophil # 5.41 X10^3/uL (2.7-7.7); Neutrophil % 48.8 % (47-70); Platelet Count 397 K/mm3 (150-450); RBC Distribution Width CV 13.1 % (11.6-14.6); RBC Distribution Width SD 41.8 fl (35.1-43.9); White Blood Count 11.1 K/mm3 (4.4-11.0)
[2024-01-22] MEDS: Ondansetron 4 MG/2 ML Vial IV (01:26)
[2024-01-22] MEDS: 0.9% Normal Saline (1000mL) 1,000 ML 999 ML IV (01:26)
[2024-01-22] MEDS: Ketorolac 30 MG/ML Syringe IV (01:26)
[2024-01-22 01:31] LABS: Red Blood Cells-Urine 0 SEEN /hpf (0-5); White Blood Cells 0 SEEN /hpf (0-5)
[2024-01-22 01:32] LABS: Color, Urine Yellow (Yellow); Glucose, Dipstick Normal (Normal); Ketone-Dipstick Negative (Negative); Leukocyte Esterase-Dipstick Negative /ul (Negative); Nitrite-Dipstick Negative (Negative); Occult Blood-Urine Negative /ul (Negative); Protein-Dipstick 30 mg/dl (Negative); Specific Gravity, Urine 1.015 (1.002-1.030); Urine Bilirubin Dipstick Negative (Negative); Urine Clarity Sl. Cloudy (Clear); Urine Urobilinogen Normal (Normal)
[2024-01-22 01:36] LABS: Internal QC Validated? YES +Cl - CLEAR BKGD; Pregnancy, Urine Negative Negative; Record Kit Lot#,Urine Preg 869294
[2024-01-22 01:40] LABS: Fine Granular Cast- Urine 5-10 SEEN /lpf (0-5); Mucous, Urine 1+ /hpf (<or=2+); Squamous Epithelial Cells - UA 5-10 SEEN /hpf (5-10)
[2024-01-22 01:41] LABS: Amorphous Sediment 3+; Bacteria 2+ /hpf (None Seen); Hyaline Cast 5-10 SEEN /lpf (0-5)
[2024-01-22 01:48] LABS: AST(SGOT) 36 U/L (15-37); Alanine Aminotransfer ALT/SGPT 46 U/L (13-56); Albumin, Serum 3.8 g/dL (3.2-5.0); Alkaline Phosphatase 108 U/L (45-117); Anion Gap 7 (5-15); BUN 16 mg/dL (7-18); BUN/Creat Ratio 19.6 RATIO (10-20); Bilirubin, Direct 0.12 mg/dL (0.00-0.30); Calcium,Total 10.1 mg/dL (8.5-10.1); Chloride 103 mmol/L (98-107); Creatinine, Serum 0.82 mg/dL (0.55-1.02); EST Glomerular Filtration Rate 79 mL/min (>60); Est Glom Filt Rate - Afr Amer 95 mL/min (>60); Estimated Creatinine Clearance 72.74 ml/min; Globulin 4.2 g/dL (2.2-4.2); Glucose 119 mg/dL (74-106); Lipase 68 U/L (13-75); Potassium 3.4 mmol/L (3.5-5.1); Sodium Level 140 mmol/L (136-145)
[2024-01-22] MEDS: HYDROmorphone 1 MG/ML Syringe IV (01:49)
[2024-01-22 02:47] VITALS: BP 157/90; PULSE 95; RESP 16; O2SAT 92
[2024-01-22] MEDS: oxyCODONE 5 MG Tablet 10 MG PO (03:11)
[2024-01-22 03:13] VITALS: BP 146/106; PULSE 86; RESP 16; TEMP 36.6; O2SAT 95
== END 2024-01-22 03:16 | disposition home or self-care (01) ==
PROVIDERS: Emergency Provider Emergency Medicine; PCP Internal Medicine; Visit Provider Emergency Medicine
DX: N13.2 Hydronephrosis with renal and ureteral calculous obstruction (principal); I10 Essential (primary) hypertension; F32.A Depression, unspecified
CPT/HCPCS: 74177; 80048; 80076; 81001; 81025; 83690; 85025; 87086; 87088; 96361; 96374; 96375; 99283; J7030; A4216; J2405

== ENCOUNTER → 2024-03-05 | Outpatient (CLI) | payer OTHER, SELFPAY ==
--- NOTE | 2024-03-05 18:00 | CT_ITS ---
STUDY: CT ABDOMEN AND PELVIS WITHOUT CONTRAST REASON FOR EXAM: Female, 48 years old. left ureteral stone RADIATION DOSAGE (If Supplied By Facility): CTDIvol = ( 8.43 ) mGy, DLP = ( 429.44 ) mGycm TECHNIQUE: Transaxial images were obtained from the dome of the diaphragm to the symphysis pubis without oral contrast, and without intravenous contrast. Sagittal and coronal images were reconstructed. Individualized dose optimization techniques were used for this CT. COMPARISON: 01/22/2024 FINDINGS: The visualized lung bases are unremarkable. The visualized portions of the heart are within normal limits. Normal liver. Normal gallbladder and extrahepatic biliary system. Normal spleen. Normal pancreas. Normal bilateral adrenal glands. No obstructive uropathy, or suspicious solid renal lesion. There are nonobstructing bilateral renal stones. Normal visualized stomach. Normal small intestine. Normal colon. There is non-visualization of the appendix. There is diffuse atherosclerotic calcification of the abdominal aorta, without a demonstrated aneurysm. Normal inferior vena cava. Normal retroperitoneum. Normal urinary bladder. The uterus is present and mildly enlarged suggesting there may be an underlying fibroid. The endometrium cannot be accurately evaluated with CT. There is a 2.2 cm right adnexal cyst. ACR White Paper guidelines (Mao, et. al. JACR 2020;17(2):248-254) suggest no follow-up is necessary. Normal abdominal wall. Normal osseous structures. CT/Abdomen/Pelvis without Cont IMPRESSION: No suspicious solid organ abnormality, nonobstructing bilateral renal stones noted. No free intraperitoneal fluid, air, or suspicious adenopathy Electronically Signed: Michi Dodge MD at 15:36 EST ,
== END | disposition home or self-care (01) ==
PROVIDERS: PCP Internal Medicine; Referring Provider Urology; Visit Provider Urology
DX: N20.1 Calculus of ureter (principal)
CPT/HCPCS: 74176

== ENCOUNTER 2024-04-01 08:00 | Outpatient (RCR) | payer OTHER, SELFPAY | END 2024-04-01 19:00 | disposition home or self-care (01) | LOC: PT 08:00 | PROVIDERS: PCP Internal Medicine; Referring Provider Urology; Visit Provider Urology | DX: N39.3 Stress incontinence (female) (male) (principal) | CPT/HCPCS: 97162; 97530 ==

== ENCOUNTER → 2024-07-21 | Outpatient (CLI) | payer OTHER, SELFPAY ==
--- NOTE | 2024-07-21 08:49 | RAD_ITS ---
PROCEDURE: ABDOMEN SINGLE VIEW 07/21/2024 REASON FOR EXAM: STONES TECHNIQUE: Single view abdomen. COMPARISON: None. FINDINGS: No visible bowel dilatation. RIGHT lower quadrant surgical iliana, possible anastomosis. Bilateral pelvic calculi up to 3 mm on the LEFT and 5 mm on the RIGHT could reflect phleboliths. A calculus projecting over the LEFT renal silhouette measures 4 mm. No definite or visible acute bony abnormality. RAD/Abdomen Single View IMPRESSION: 1. Likely 4 mm LEFT renal calculus. Bilateral pelvic calculi up to 5 mm on the RIGHT could reflect vascular phleboliths and/or ureteral calculi; these cannot be differentiated radiographically. If there is persistent concern, recommend CT. 2. Additional description as above. Reading Location: [id number]
[2024-07-21 10:26] LABS: Absolute Lymphocyte Count 2.47 X10^3/uL (0.83-4.51); Absolute Neutrophil Count 3.7 X10^3/uL (2.0-7.7); Basophil# 0.06 X10^3/uL; Basophil% 0.9 % (0-1); Eosinophil# 0.13 X10^3/uL; Eosinophils% 1.9 % (0-5); Hematocrit 46.5 % (37-47); Hemoglobin 15.5 g/dL (12.0-15.0); Lymphocyte # 2.47 X10^3/ul (0.83-4.51); Lymphocyte % 36.3 % (19-41); Mean Corp Hgb Conc 33.3 g/dL (32-36); Mean Corpuscular Volume 90.1 fL (81-99); Mean Platelet Vol. 11.9 fl (6.2-12.0); Monocyte# 0.49 X10^3/uL; Monocyte% 7.2 % (0-10); NRBC Flagged by Analyzer 0 % (0-5); Neutrophil # 3.65 X10^3/uL (2.7-7.7); Neutrophil % 53.6 % (47-70); Platelet Count 328 K/mm3 (150-450); RBC Distribution Width SD 42.9 fl (35.1-43.9); Red Blood Count 5.16 M/mm3 (4.2-5.4); White Blood Count 6.8 K/mm3 (4.4-11.0)
[2024-07-21 10:43] LABS: Hemoglobin A1c 5.5 % (<=5.6)
[2024-07-21 16:07] LABS: Cholesterol 233 mg/dL (<=200); High Density Lipoprotein 45 mg/dL; Low Density Lipoprotein Calc. 155 mg/dL; Triglycerides 166 mg/dL; Very Low Density Lipoprotein 33 mg/dL (5-40); cholesterol:hdl ratio screen 5.17
[2024-07-21 17:11] LABS: Iron 49 ug/dL (50-170); Iron Binding Capacity,Total 379 ug/dL (250-450); Iron Binding Capacity,Unsat 330 ug/dL (228-428)
[2024-07-21 17:13] LABS: ALB/GLOB Ratio 1.3 RATIO (0.9-2.4); AST(SGOT) 26 U/L (<=31); Alanine Aminotransfer ALT/SGPT 23 U/L (<=34); Albumin, Serum 4.1 g/dL (3.5-5.0); Alkaline Phosphatase 101 U/L (35-104); Anion Gap 13 (5-15); BUN 13 mg/dL (4-19); BUN/Creat Ratio 22.2 RATIO (10-20); Calcium,Total 9.3 mg/dL (7.6-11.0); Carbon Dioxide 18.4 mmol/L (21.0-32.0); Chloride 107 mmol/L (98-108); Creatinine, Serum 0.56 mg/dL (0.70-1.20); EST Glomerular Filtration Rate 110 (>60); Globulin 3.2 g/dL (2.2-4.2); Glucose 111 mg/dL (70-99); Potassium 4.4 mmol/L (3.3-5.1); Protein, Total 7.3 g/dL (5.9-8.4); Sodium Level 138 mmol/L (133-145); Total Bilirubin < 0.15 mg/dL (0.00-1.30); Vitamin B12 693 pg/mL (180-914); Vitamin D,25 Hydroxy 30.3 ng/mL (30-100)
[2024-07-22 08:09] LABS: Insulin Level 46.3 uIU/mL (2.6-24.9)
== END | disposition home or self-care (01) ==
PROVIDERS: PCP Internal Medicine; Referring Provider Internal Medicine; Visit Provider Urology
DX: N20.0 Calculus of kidney (principal); E78.1 Pure hyperglyceridemia; Z87.42 Personal history of other diseases of the female genital tract; D50.9 Iron deficiency anemia, unspecified; Z13.220 Encounter for screening for lipoid disorders; R73.9 Hyperglycemia, unspecified; E55.9 Vitamin D deficiency, unspecified
CPT/HCPCS: 36415; 74018; 80053; 80061; 82306; 82607; 83036; 83525; 83540; 83550; 84443; 85025

== ENCOUNTER → 2024-09-30 | Outpatient (CLI) | payer OTHER, SELFPAY ==
[2024-09-30 11:30] LABS: Anion Gap 13 (5-15); BUN 8 mg/dL (4-19); BUN/Creat Ratio 14.6 RATIO (10-20); Calcium,Total 9.7 mg/dL (7.6-11.0); Carbon Dioxide 22.4 mmol/L (21.0-32.0); Chloride 105 mmol/L (98-108); Creatinine, Serum 0.56 mg/dL (0.70-1.20); EST Glomerular Filtration Rate 110 (>60); Glucose 104 mg/dL (70-99); Magnesium 2.2 mg/dL (1.5-2.2); Sodium Level 140 mmol/L (133-145)
== END | disposition home or self-care (01) ==
LOC: PAVLAB 10:50
PROVIDERS: PCP Internal Medicine; Referring Provider Internal Medicine; Visit Provider Internal Medicine
DX: I10 Essential (primary) hypertension (principal)
CPT/HCPCS: 36415; 80048; 82088; 82384; 83735; 84244

== ENCOUNTER → 2025-01-24 | Outpatient (CLI) | payer OTHER, SELFPAY | END | disposition home or self-care (01) | LOC: MTRAD 09:29 | PROVIDERS: PCP Internal Medicine; Referring Provider Urology; Visit Provider Urology | DX: N20.0 Calculus of kidney (principal) | CPT/HCPCS: 74018 ==